=== PATIENT | female | born 2000 | race Caucasian/White ===

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

== ENCOUNTER → 2021-04-07 10:24 | Outpatient (CLI) | payer BC, SELFPAY ==
[2021-04-07 11:30] LABS: HCG,Quantitative 2555 mIU/ml (0-5.42)
== END ==
PROVIDERS: Visit Provider Obstetrics & Gynecology
DX: Z34.90 Encounter for supervision of normal pregnancy, unspecified, unspecified trimester (principal)
CPT/HCPCS: 36415; 84702

== ENCOUNTER → 2021-04-09 08:36 | Outpatient (CLI) | payer BC, SELFPAY ==
[2021-04-09 10:22] LABS: HCG,Quantitative 4569 mIU/ml (0-5.42)
== END ==
PROVIDERS: Visit Provider Obstetrics & Gynecology
DX: Z34.90 Encounter for supervision of normal pregnancy, unspecified, unspecified trimester (principal)
CPT/HCPCS: 36415; 84702

== ENCOUNTER 2021-04-10 09:17 | Emergency (ER) | payer BC, SELFPAY ==
[2021-04-10 09:25] VITALS: BP 132/72; PULSE 108; RESP 12; TEMP 36.9; O2SAT 99; BMI 20.5
--- NOTE | 2021-04-10 09:33 | HMH.EDUTC ---
[facility] [place] Clinical Impression: Viral syndrome Qualifiers: Weeks of gestation: less than 8 weeks Qualified Code(s): Z3A.01 - Less than 8 weeks gestation of Disposition: Home, Self-Care Condition on Discharge: Good Instructions: DI for Viral Syndrome, DI for COVID-19 (Suspected or Confirmed ), Preventing the Spread of Coronavirus Discharge Instructions Additional Instructions: Drink plenty of fluids. Take tylenol or ibuprofen for pain or fever. Take the medications as directed. Follow up with your regular doctor. GO TO THE ER FOR ANY WORSENING SYMPTOMS Quarantine until you know the results of your covid-19 test. If it is positive, the health department should call you and give you further instructions about your length of Quarantine and other thing. Prescriptions: Fluticasone Propionate [Flonase 50mcg nasal spray 16gm] 1 spr NS DAILY 30 Days #1 bottle Transmission Status: Received by [facility] Promethazine HCl [Phenergan 25mg tab] 25 mg PO Q6H PRN #30 tab PRN Reason: Nausea And Vomiting Transmission Status: Received by [facility] Referrals: Provider,Referral, [Primary Care Provider] - Forms: Work/School Release Time of Disposition: 09:54 Medical Decision Making - Medical Records Medical records reviewed: No: I reviewed the patient's medical records. - Jordan Inquiry Pt receiving controlled substance: No Vital Signs: 04/10/21 09:25 04/10/21 09:57 Temperature 98.4 F 98.5 F Temperature Source Oral Pulse Rate 99 H Pulse Rate [Left] 108 H Respiratory Rate 12 16 Blood Pressure 127/83 Blood Pressure [Right Arm] 132/72 Blood Pressure Mean [Right Arm] 92 02 Sat by Pulse Oximetry 99 - Lab Data Lab results reviewed: Yes: I reviewed the patient's lab results. Orders (Tests/Meds): ORDERS Category Date Time Status Covid-19 Nasal PCR ([facility]) Routine Lab 04/10/21 09:32 Received [facility] [place] HPI - General Stated complaint: covid test Time Seen by Provider: 04/10/21 09:33 Mode of Arrival: Ambulatory Source of Information: Patient Limitations: No Limitations Description of Symptoms (Recalled from Triage Doc. by RN): PT C/O NASAL DRAINAGE, qusipe, SORE THROAT AND A COUGH. PT RECENTLY FOUND OUT SHE IS . HEENT Symptoms (Recalled from RN notes): Yes (NASAL DRAINAGE, SORE THROAT AND QUISPE) Resp Symptoms (Recalled from RN notes): Yes (COUGH) Skin Symptoms (Recalled from RN notes): No MS Symptoms (Recalled from RN notes): No Functional Status (Recalled from RN notes): NA - History of Present Illness Provider Complaint: She states that for the past 3 days she has been having a cough, chest congestion, nasal drainage and sore throat. She has had chilling and subjective fever. She recently found out that she is . She is approx 6 weeks . She denies any dysuria, urinary complaints or vaginal bleeding. - Related Data Home Medications Medication Instructions Recorded Confirmed trazodone 50 mg tablet PO 10/27/19 08/02/20 Previous Rx's Medication Instructions Recorded Fluticasone Propionate [Flonase 1 spr NS DAILY 30 Days #1 bottle 04/10/21 50mcg nasal spray 16gm] Promethazine HCl [Phenergan 25mg 25 mg PO Q6H PRN #30 tab 04/10/21 tab] Allergies Allergy/AdvReac Type Severity Reaction Status Date / Time No Known Allergies Allergy Verified 08/02/20 17:21 - Worker's Comp Is this a Worker's Comp case?: No [facility] History - Hepatitis A Screen Drug use history?: No High risk sexual behaviors?: No History of sexually transmitted infection?: No Currently employed?: No Childcare worker?: No Do you have indoor plumbing?: Yes Do you have electricity?: Yes Attestation statement:: This patient has been screened for Hepatitis A risk factors. I have reviewed the patient's past medical history: Yes Medical History: Reports:: Anxiety, Depression Laterality Cases: Bilateral: Tonsillectomy O
[2021-04-10 09:57] VITALS: BP 127/83; PULSE 99; RESP 16; TEMP 36.9
[2021-04-10 10:23] LABS: UTC Strep Screen (Rapid) Negative (Negative)
== END 2021-04-10 10:18 | disposition home or self-care (01) ==
PROVIDERS: Nurse Practitioner Family; Emergency Provider Nurse Practitioner
DX: B34.9 Viral infection, unspecified (principal); Z32.01 Encounter for pregnancy test, result positive; Z20.822 Contact with and (suspected) exposure to COVID-19
CPT/HCPCS: 87880; 99202; G0463; U0003

== ENCOUNTER → 2021-04-28 12:37 | Outpatient (CLI) | payer BC, SELFPAY ==
--- NOTE | 2021-04-28 12:37 | US_ITS ---
PROCEDURE: US OB <= 14 WEEKS FETUS CLINICAL INDICATION: dates COMPARISON: No exams were available for comparison FINDINGS: There is an intrauterine gestational sac present. No pole or yolk sac apparent. Small amount fluid is present in the cul-de-sac. IMPRESSION: There is an intrauterine anechoic sac without pole or yolk sac. Cannot confirm viability. Blighted ovum is considered. Recommend follow-up ultrasound as well as correlation with beta HCG. Dictated by: Antonio Andrade MD 04/28/2021 16:03 Antonio Andrade MD in [place] 04/28/2021 16:03
== END ==
PROVIDERS: Visit Provider Obstetrics & Gynecology
DX: Z34.90 Encounter for supervision of normal pregnancy, unspecified, unspecified trimester (principal)
CPT/HCPCS: 76801

== ENCOUNTER → 2021-04-28 13:55 | Outpatient (CLI) | payer BC, SELFPAY ==
[2021-04-28 16:09] LABS: HCG,Quantitative 17728 mIU/ml (0-5.42)
== END ==
PROVIDERS: Visit Provider Obstetrics & Gynecology
DX: Z34.90 Encounter for supervision of normal pregnancy, unspecified, unspecified trimester (principal)
CPT/HCPCS: 36415; 84702

== ENCOUNTER → 2021-05-02 07:15 | Outpatient (CLI) | payer BC, SELFPAY | PROVIDERS: Visit Provider Obstetrics & Gynecology | DX: Z20.822 Contact with and (suspected) exposure to COVID-19 (principal) ==

== ENCOUNTER → 2021-05-03 09:11 | Outpatient (CLI) | payer BC, SELFPAY ==
[2021-05-03 11:28] LABS: HCG,Quantitative 12364 mIU/ml (0-5.42)
== END ==
PROVIDERS: Visit Provider Obstetrics & Gynecology
DX: Z34.90 Encounter for supervision of normal pregnancy, unspecified, unspecified trimester (principal)
CPT/HCPCS: 36415; 84702

== ENCOUNTER 2021-05-03 09:27 | Emergency (ER) | payer BC, SELFPAY ==
[2021-05-03 09:57] VITALS: BP 129/79; PULSE 70; RESP 18; TEMP 36.9; O2SAT 100; BMI 20.5
--- NOTE | 2021-05-03 10:20 | HMH.EDUTC ---
[facility] [place] Impression: Exposure to COVID-19 virus Qualifiers: Weeks of gestation: less than 8 weeks Qualified Code(s): Z3A.01 - Less than 8 weeks gestation of Disposition: Home, Self-Care Condition on Discharge: Good Instructions: DI for COVID-19 (Suspected or Confirmed ), Preventing the Spread of Coronavirus Discharge Instructions Additional Instructions: Drink plenty of fluids. Take tylenol or ibuprofen for pain or fever. Follow up with your regular doctor. GO TO THE ER FOR ANY CONCERNING SYMPTOMS Quarantine until you know the results of your covid-19 test. If it is positive, the health department should call you and give you further instructions about your length of Quarantine and other things. Notify your school or workplace of your results and follow their instructions regarding return to work/school. Prescriptions: Ondansetron [Zofran 4mg ODT] 4 mg PO DAILYP PRN #12 tab PRN Reason: Nausea Transmission Status: Received by [id number] Referrals: Provider,Referral, [Primary Care Provider] - Time of Disposition: 10:26 Medical Decision Making - Medical Records Medical records reviewed: No: I reviewed the patient's medical records. - Jordan Inquiry Pt receiving controlled substance: No Vital Signs: 05/03/21 09:57 05/03/21 10:22 Temperature 98.5 F 98.5 F Temperature Source Oral Pulse Rate 70 Pulse Rate [Left] 70 Respiratory Rate 18 18 Blood Pressure 129/79 Blood Pressure [Right Arm] 129/79 Blood Pressure Mean [Right Arm] 95 02 Sat by Pulse Oximetry 100 Orders (Tests/Meds): ORDERS Category Date Time Status Covid-19 Nasal PCR ([facility]) Routine Lab 05/03/21 09:[address] [facility] [place] - General Stated complaint: covid test Time Seen by Provider: 05/03/21 10:20 Mode of Arrival: Ambulatory Source of Information: Patient Limitations: No Limitations HEENT Symptoms (Recalled from RN notes): No Resp Symptoms (Recalled from RN notes): No Skin Symptoms (Recalled from RN notes): No MS Symptoms (Recalled from RN notes): No Functional Status (Recalled from RN notes): na - History of Present Illness Provider Complaint: She was exposed to covid-19 from her boyfriend's mother developing symptoms and testing positive 2 days ago. She denies any symptoms, but her work wants her to be tested before she can return. - Related Data Home Medications Medication Instructions Recorded Confirmed trazodone 50 mg tablet PO 10/27/19 08/02/20 Previous Rx's Medication Instructions Recorded Fluticasone Propionate [Flonase 1 spr NS DAILY 30 Days #1 bottle 04/10/21 50mcg nasal spray 16gm] Promethazine HCl [Phenergan 25mg 25 mg PO Q6H PRN #30 tab 04/10/21 tab] Allergies Allergy/AdvReac Type Severity Reaction Status Date / Time No Known Allergies Allergy Verified 08/02/20 17:21 - Worker's Comp Is this a Worker's Comp case?: No [facility] History - Hepatitis A Screen Drug use history?: No High risk sexual behaviors?: No History of sexually transmitted infection?: No Currently employed?: No Childcare worker?: No Do you have indoor plumbing?: Yes Do you have electricity?: Yes Attestation statement:: This patient has been screened for Hepatitis A risk factors. I have reviewed the patient's past medical history: Yes Medical History: Reports:: Anxiety, Depression Laterality Cases: Bilateral: Tonsillectomy Other Surgeries: Yes: No Previous Surgery, Other Amputation: No Fractures: No Comment: EYE SURGERY - Social History Smoking Status: Never smoker Alcohol Intake: never Substance Use Type: marijuana Occupational Status: other Housing: house Household Members: family - Psychiatric History Pschychiatric History:: Reports:: Anxiety, Depression Family Hx:: No significant family history ROS Obtained: Yes All systems reviewed & no additional complaints - Constitutional Constitutional: Reports system revi
[2021-05-03 10:22] VITALS: BP 129/79; PULSE 70; RESP 18; TEMP 36.9
== END 2021-05-03 10:45 | disposition home or self-care (01) ==
PROVIDERS: Emergency Provider Nurse Practitioner Family
DX: Z20.822 Contact with and (suspected) exposure to COVID-19 (principal)
CPT/HCPCS: 99202; G0463; U0003

== ENCOUNTER → 2021-05-12 08:49 | Outpatient (CLI) | payer BC, SELFPAY ==
[2021-05-12 10:08] LABS: HCG,Quantitative 2596 mIU/ml (0-5.42)
== END ==
PROVIDERS: Visit Provider Obstetrics & Gynecology
DX: O02.1 Missed abortion (principal)
CPT/HCPCS: 36415; 84702

== ENCOUNTER → 2021-05-19 07:39 | Outpatient (CLI) | payer BC, SELFPAY ==
[2021-05-19 09:08] LABS: HCG,Quantitative 72 mIU/ml (0-5.42)
== END ==
PROVIDERS: Visit Provider Obstetrics & Gynecology
DX: O02.0 Blighted ovum and nonhydatidiform mole (principal)
CPT/HCPCS: 36415; 84702

== ENCOUNTER → 2022-01-13 08:57 | Outpatient (CLI) | payer BC, SELFPAY ==
[2022-01-13 10:49] LABS: HCG,Quantitative 779 mIU/ml (0-5.42)
== END ==
PROVIDERS: Visit Provider Obstetrics & Gynecology
DX: Z32.01 Encounter for pregnancy test, result positive (principal)
CPT/HCPCS: 36415; 84702

== ENCOUNTER → 2022-01-16 08:49 | Outpatient (CLI) | payer BC, SELFPAY ==
[2022-01-16 10:01] LABS: HCG,Quantitative 1753 mIU/ml (0-5.42)
== END ==
PROVIDERS: Visit Provider Obstetrics & Gynecology
DX: Z34.90 Encounter for supervision of normal pregnancy, unspecified, unspecified trimester (principal)
CPT/HCPCS: 36415; 84702

== ENCOUNTER → 2022-02-06 14:09 | Outpatient (CLI) | payer BC, SELFPAY ==
--- NOTE | 2022-02-06 14:09 | US_ITS ---
FINAL REPORT CLINICAL HISTORY: Dates FINDINGS: Sonographic images of the pelvis were obtained. A gestational sac with a yolk sac is noted in the uterus. The yolk sac measures 0.89 cm. The mean sac diameter measures 1.77 cm which corresponds to 6 week 2 day gestation. No pole is identified. The right ovary is within normal limits. The left ovary is within normal limits. There is no free fluid. IMPRESSION: No pole is identified, differential diagnosis include normal early or failed . Follow-up ultrasound may be helpful. Reviewed, Interpreted and Dictated by Iglesia Mo III, MD Transcribed by Vania Coronel Authenticated and [facility]
[2022-02-06 17:07] LABS: HCG,Quantitative 14112 mIU/ml (0-5.42)
== END ==
LOC: RAD 14:09
PROVIDERS: Visit Provider Obstetrics & Gynecology
DX: Z34.90 Encounter for supervision of normal pregnancy, unspecified, unspecified trimester (principal)
CPT/HCPCS: 36415; 76801; 84702

== ENCOUNTER → 2022-02-09 09:19 | Outpatient (CLI) | payer BC, SELFPAY ==
[2022-02-09 11:34] LABS: HCG,Quantitative 15649 mIU/ml (0-5.42)
== END ==
PROVIDERS: Visit Provider Obstetrics & Gynecology
DX: Z34.90 Encounter for supervision of normal pregnancy, unspecified, unspecified trimester (principal)
CPT/HCPCS: 36415; 84702

== ENCOUNTER → 2022-02-15 10:23 | Outpatient (CLI) | payer BC, SELFPAY ==
--- NOTE | 2022-02-15 10:23 | US_ITS ---
FINAL REPORT CLINICAL HISTORY: follow up, suspected anembryonic COMPARISON: February 06, 2022 FINDINGS: A gestational sac is present within the uterus. Mean sac diameter is 1.2 cm, this has decreased since the prior exam. No pole is identified. The ovaries are normal. No free fluid is identified. IMPRESSION: Findings consistent with a failed . Reviewed, Interpreted and Dictated by Iglesia Mo III, MD Transcribed by Vania Coronel Authenticated and [facility]
== END ==
PROVIDERS: Visit Provider Obstetrics & Gynecology
DX: O02.0 Blighted ovum and nonhydatidiform mole (principal)
CPT/HCPCS: 76801

== ENCOUNTER → 2022-02-15 11:07 | Outpatient (CLI) | payer BC, SELFPAY ==
[2022-02-15 13:02] LABS: HCG,Quantitative 13094 mIU/ml (0-5.42)
== END ==
PROVIDERS: Visit Provider Obstetrics & Gynecology
DX: O02.0 Blighted ovum and nonhydatidiform mole (principal)
CPT/HCPCS: 36415; 84702

== ENCOUNTER → 2022-02-20 09:22 | Outpatient (CLI) | payer BC, SELFPAY ==
[2022-02-20 09:57] LABS: Basophils # 0.1 K/mm3 (0-0.2); Basophils % 1.4 % (0.1-2.0); Eosinophils # 0.1 K/mm3 (0.0-0.4); Eosinophils % 1.2 % (0.1-12.0); Hematocrit 43.3 % (37.0-47.0); Hemoglobin 14.1 g/dL (12.2-16.2); Lymphocytes # 2.2 K/mm3 (0.7-4.5); Lymphocytes % 33.3 % (10-50); Mean Corpuscular HGB Conc 32.6 g/dL (31.8-35.4); Mean Corpuscular Hemoglobin 30.4 pg (27.0-31.2); Mean Corpuscular Volume 93.2 fl (81-99); Mean Platelet Volume 8.2 fl (7.4-10.4); Monocytes # 0.4 K/mm3 (0.1-1.0); Monocytes % 5.7 % (1.7-9.3); Neutrophils # 3.9 K/mm3 (1.8-7.8); Neutrophils % 58.4 % (37.0-80.0); Platelet Count 252 K/mm3 (142-424); Red Blood Count 4.64 M/mm3 (4.20-5.40); Red Cell Distribution Width 12.8 % (11.5-17.5); White Blood Count 6.7 K/mm3 (4.5-13.0)
== END ==
PROVIDERS: Visit Provider Obstetrics & Gynecology
DX: Z01.818 Encounter for other preprocedural examination (principal); Z20.822 Contact with and (suspected) exposure to COVID-19; O02.0 Blighted ovum and nonhydatidiform mole
CPT/HCPCS: 36415; 85025; 86850; C9803; U0003; U0005

== ENCOUNTER 2022-02-21 09:40 | Day surgery (SDC) | payer BC, SELFPAY ==
[2022-02-21] VITALS (9 sets, daily range): BP systolic 103–149; BP diastolic 55–98; PULSE 59–80; RESP 12–18; TEMP 36.1–38; O2SAT 94–100; BMI 21.2
--- NOTE | 2022-02-21 10:49 | HMH.ANESCL ---
[facility] Anesthesia Checklist - Patient Identification Patient Identification: Arm Band - Structural Data Admitted From: Home Planned Operative Procedure/s: D & C Consent for Planned Operative Procedure(s) Verified: Yes - NPO Status Verified Time NPO: 00:00 - Additional verifications Anesthesia Reactions: No Hx Blood Transfusions: No Blood Transfusion Reaction: No - Airway Assessment C-Spine Mobility Assessed: Yes TMJ Mobility Assessed: Yes Dentition: Good Dentition - Neurological Assessment Level of Consciousness: Awake Hx Seizures: No Numbness or tingling in extremities: No - Anesthesia Plan Anesthesia Risk discussed: Yes Anesthesia Plan: Verified ASA Class: I Anesthesia Type: General [facility] History Medical History: Reports:: Anxiety, Depression Denies:: Cancer, Diabetes Mellitus Type 1, Diabetes Mellitus Type 2, Internal Pacemaker, MRSA, Seizures *Have you ever received a pneumonia vaccine?: No *Have you received a flu vaccine this season?: No Other Medical History: Denies: Blood Transfusion Reaction Anesthesia experience/problems:: None Laterality Cases: Bilateral: Tonsillectomy Other Surgeries: Yes: No Previous Surgery, Other. No: Pacemaker Amputation: No Fractures: No - *Social History Last grade of school completed: High school graduate Smoking Status: Current some day smoker Tobacco Type: e-cigarettes # Packs/Day (cigarettes): 2 Alcohol Intake: never Substance Use Type: denies use *Occupational Status:: employed Housing: house Household Members: family *Travel in the last 8 weeks: None - Psychiatric History Pschychiatric History:: Reports:: Anxiety, Depression Family Hx:: Diabetes, Heart Attack, Hypertension, Thyroid Disorder
--- NOTE | 2022-02-21 12:41 | HMH.ANESI ---
[facility] Anesthesia Record Part I Intake, IV Amount: 550 Estimated blood loss (mL): 50 Urine output (mL): 0 Blood Pressure: 103/57 SaO2: 94 Pulse Rate: 60 Respiratory Rate: 12 Temperature: 97.0 F Patient is:: Drowsy Stable to PACU at:: 12:38
--- NOTE | 2022-02-21 13:53 | SUR.PHASEI ---
1305 called and provided detailed report to Tamiko Huerta RN [id number] transported via stretcher to post op. vital signs stable. denies pain. left pt in stable condition with Tamiko Huerta RN at bedside.
--- NOTE | 2022-02-21 17:24 | HMH.OPNOTE ---
Date of procedure: 02/21/22 Pre-op Diagnosis:: Anembryonic Post-op Diagnosis:: Same Procedure performed:: Suction Dilation and Curettage Surgeon:: Cathy Murillo MD E BUSINESS PROJECT MANAGER:: Other Anesthesia: GETA Estimated blood loss (mL): 100 Operative findings:: products of conception grossly identified Operative note:: The patient was taken to the OR and general anesthesia administered without difficulty. She was prepped and draped in lithotomy position. Cr retractors were used to visualize the cervix and a single tooth tenaculum placed on the anterior lip of the cervix. The cervix was passively dilated until it could accomodate the suction curette. A size # 7 curved curette was used to evacuate the contents of the uterus. Once the products of conception had been evacuated, sharp curettage was used to ensure that no products remained within the uterine cavity. All instruments were then removed from the patients vagina, she was taken out of lithotomy position, awakened from anesthesia and taken to the PACU in stable condition. EBL: 100cc Condition: stable Disposition: PACU Specimens:: products of conception Complications:: none
--- NOTE | 2022-02-23 07:48 | P.PN_ITS ---
[facility] Anesthesia Record Part II Discharge Time: 13:18 Destination: Home PACU nurse assessment reviewed?: Yes Patient Condition:: Good Anesthesia Complications:: None Swallowing reflex intact?: Yes Cyanosis?: No Blood Pressure: 118/81 Pulse Rate: 66 Temperature: 97.9 F Mental Status: Alert & Oriented Pain level:: 0 Nausea and/or vomitting:: None Intake, IV Amount: 0
[2022-02-23 07:49] VITALS: BP 118/81; PULSE 66; TEMP 36.6
== END 2022-02-21 13:43 | disposition home or self-care (01) ==
LOC: OR 09:43
PROVIDERS: Visit Provider Obstetrics & Gynecology
PROC: (CPT 59820; principal; 2022-02-21 11:30)
DX: F41.9 Anxiety disorder, unspecified (principal); F32.A Depression, unspecified; Z72.0 Tobacco use; O02.0 Blighted ovum and nonhydatidiform mole
CPT/HCPCS: 59820; 96374; J2405

== ENCOUNTER → 2022-04-11 08:45 | Outpatient (CLI) | payer BC, SELFPAY ==
[2022-04-11 10:07] LABS: Triiodothryronine (T3) Uptake 30 % (23.5-40.5)
[2022-04-11 10:21] LABS: Thyroid Stimulating Hormone 1.76 uIU/mL (0.465-4.68)
[2022-04-12 13:19] LABS: Anti-Centromere B Antibodies <0.2 AI (0.0-0.9); Anti-DNA (DS) Ab Qn <1 IU/mL (0-9); Anti-Jo-1 <0.2 AI (0.0-0.9); Anti-Smith Antibody <0.2 AI (0.0-0.9); Antichromatin Antibodies 0.2 AI (0.0-0.9); Antiscleroderma-70 Antibodies <0.2 AI (0.0-0.9); RNP Antibodies 0.6 AI (0.0-0.9); Sjogren's Anti-SS-A <0.2 AI (0.0-0.9); Sjogren's Anti-SS-B <0.2 AI (0.0-0.9)
[2022-04-12 15:11] LABS: Anti-Cardio Antibody IgM <9 MPL U/mL (0-12); Anti-Cardiolipin Antibody IgG <9 GPL U/mL (0-14); Anticardiolipin Ab,IgA,Qn <9 APL U/mL (0-11)
[2022-04-14 03:44] LABS: Beta-2 Glycoprotein I Ab, IgG <9 (0-20)
[2022-04-18 20:21] LABS: APTT 26.4 sec (.); INR 1.1 ratio (.); Thrombin Time 17.8 sec (.)
[2022-04-21 17:20] LABS: Anti-Cardiolipin Antibody IgG <10 GPL (.); Anti-Cardiolipin Antibody IgM <10 MPL (.); Beta-2 Glycoprotein I Ab, IgA <10 SAU (.); Beta-2 Glycoprotein I Ab, IgG <10 SGU (.); Beta-2 Glycoprotein I Ab, IgM <10 SMU (.); Hexagonal Phase Phospholipid 4 sec (.); Prothrombin Time 11.6 sec (.)
== END ==
PROVIDERS: Visit Provider Obstetrics & Gynecology
DX: N96 Recurrent pregnancy loss (principal)
CPT/HCPCS: 36415; 84436; 84443; 84479; 85597; 85598; 85610; 85613; 85670; 85730; 86146; 86147; 86225; 86235

== ENCOUNTER → 2022-09-05 10:14 | Outpatient (CLI) | payer BC, SELFPAY ==
--- NOTE | 2022-09-05 10:14 | US_ITS ---
FINAL REPORT CLINICAL HISTORY: right lower quadrant pain FINDINGS: Transvaginal sonographic images of the pelvis were obtained. The uterus measures 7.3 x 5.6 x 4.2 cm. The endometrium measures 10 mm, which is within normal limits. No uterine mass is identified. The right ovary measures 4.2 cm in length and left ovary measures 3.5 cm in length. Normal blood flow seen to the ovaries. Multiple small follicles are present in both ovaries. There is no evidence of free fluid. IMPRESSION: No acute abnormality identified. Reviewed, Interpreted and Dictated by Iglesia Mo III, MD Transcribed by Vania Coronel Authenticated and [facility]
== END ==
LOC: RAD 10:14
PROVIDERS: PCP Obstetrics & Gynecology; Visit Provider Obstetrics & Gynecology
DX: R10.31 Right lower quadrant pain (principal)
CPT/HCPCS: 76830

== ENCOUNTER → 2022-12-21 10:39 | Outpatient (CLI) | payer BC, SELFPAY ==
[2022-12-21 11:50] LABS: HCG,Quantitative < 2 mIU/ml (0-5.42)
[2022-12-22 12:25] LABS: Progesterone 0.4 ng/mL (.)
== END ==
PROVIDERS: PCP Family Medicine; Visit Provider Obstetrics & Gynecology
DX: N92.6 Irregular menstruation, unspecified (principal); Z32.00 Encounter for pregnancy test, result unknown
CPT/HCPCS: 36415; 84144; 84702

== ENCOUNTER → 2023-06-04 07:29 | Outpatient (CLI) | payer BC, SELFPAY ==
[2023-06-04 07:52] LABS: Basophils % 0.5 % (0.1-2.0); Eosinophils # 0.1 K/mm3 (0.0-0.4); Eosinophils % 1.4 % (0.1-12.0); Hematocrit 40.5 % (37.0-47.0); Hemoglobin 13.5 g/dL (12.2-16.2); Lymphocytes # 1.9 K/mm3 (0.7-4.5); Lymphocytes % 33.1 % (10-50); Mean Corpuscular HGB Conc 33.3 g/dL (31.8-35.4); Mean Corpuscular Hemoglobin 29.6 pg (27.0-31.2); Mean Corpuscular Volume 88.8 fl (81-99); Monocytes # 0.4 K/mm3 (0.1-1.0); Monocytes % 6.3 % (1.7-9.3); Neutrophils # 3.4 K/mm3 (1.8-7.8); Neutrophils % 58.7 % (37.0-80.0); Platelet Count 234 K/mm3 (142-424); Red Blood Count 4.56 M/mm3 (4.20-5.40); Red Cell Distribution Width 12.9 % (11.5-17.5); White Blood Count 5.9 K/mm3 (4.8-10.8)
[2023-06-04 08:42] LABS: Chloride 107 mmol/L (98-107); Potassium 3.4 mmoL/L (3.5-5.1); Sodium 139 mmol/L (136-145)
[2023-06-04 08:44] LABS: Alanine Aminotransferase 14 U/L (12-78); Aspartate Amino Transferase 20 U/L (14-36); Blood Urea Nitrogen 11 mg/dl (7-17); Estimated Glomerular Filt Rate 106 ml/min (>60); GFR (African American) 128 ML/MIN (>60)
[2023-06-04 08:45] LABS: Albumin Level 4.2 g/dl (3.5-5.0); Albumin/Globulin Ratio 1.8 (1.1-1.8); Alkaline Phosphatase 49 U/L (38-126); Anion Gap 10.4 mEq/L (5-15); Bilirubin,Total 0.4 mg/dl (0.2-1.3); Calcium 8.9 mg/dl (8.4-10.2); Carbon Dioxide 25 mmol/L (22.0-30.0); Globulin 2.3 g/dL (1.3-3.2); Glucose 82 mg/dl (74-100); Glucose,Fasting 82 mg/dl (74-100); Total Protein,Serum 6.5 g/dl (6.3-8.2)
[2023-06-04 09:07] LABS: Hemoglobin A1C 4.5 % (4.0-6.0)
[2023-06-04 09:15] LABS: Thyroid Stimulating Hormone 0.69 uIU/mL (0.465-4.68)
[2023-06-05 11:13] LABS: Estradiol 69.9 pg/mL (.); LH 9.7 mIU/mL (.); Progesterone 0.5 ng/mL (.)
[2023-06-05 14:03] LABS: FSH 7.9 mIU/mL (.)
[2023-06-05 14:11] LABS: Insulin Level Total 6.2 uIU/mL (2.6-24.9)
[2023-06-07 22:06] LABS: Testosterone, Total, LC/MS 40 ng/dL (.)
[2023-06-11 08:36] LABS: Anti Mullerian Hormone (AMH) 13.3
== END ==
PROVIDERS: Visit Provider Obstetrics & Gynecology
DX: O02.0 Blighted ovum and nonhydatidiform mole (principal); R09.89 Other specified symptoms and signs involving the circulatory and respiratory systems
CPT/HCPCS: 36415; 80053; 82397; 82670; 82947; 83001; 83002; 83036; 83525; 84144; 84403; 84443; 85025

== ENCOUNTER 2024-03-17 11:16 | Outpatient (CLI) | payer BC, SELFPAY ==
[2024-03-17 12:43] LABS: HCG,Quantitative 8947 mIU/ml (0-5.42)
[2024-03-18 10:24] LABS: Progesterone 25.5 ng/mL (.)
== END 2024-03-17 23:59 | disposition home or self-care (01) ==
LOC: LAB 11:16
PROVIDERS: Visit Provider Obstetrics & Gynecology
DX: Z34.90 Encounter for supervision of normal pregnancy, unspecified, unspecified trimester (principal)
CPT/HCPCS: 36415; 84144; 84702

== ENCOUNTER 2024-03-17 12:57 | Outpatient (CLI) | payer BC, SELFPAY ==
--- NOTE | 2024-03-17 13:02 | US_ITS ---
PROCEDURE: US OB <= 14 WEEKS FETUS CLINICAL INDICATION: pelvic pain/bleeding, rule out ectopic COMPARISON: US US TRANSVAGINAL from 09/05/2022 FINDINGS: Transvaginal sonographic images of the pelvis were obtained. From her last menstrual period she is 5weeks 4days. There appear to be 3 separate gestational sacs within the uterine cavity. heart tones are not seen and fetuses are not seen within the individual sacs. A developing yolk sac is noted in one of the gestational sacs. The right ovary is seen and has a large cyst measuring 5.4 cm x 4.3 cm x 4.1 cm. There are several other smaller follicles. There is a corpus luteum that measures 2.9 cm x 2.5 cm x 1.8 cm. The left ovary is seen and appears normal. The left ovary has several small follicles as well as a dominant follicle that measures 3.4 cm x 3.1 cm. There is a small amount of fluid in the cul-de-sac. IMPRESSION: 1. There appears to be 3 separate sacs within the uterine cavity. 2. There are no fetuses seen or heart rate activity. A small yolk sac is apparent in 1 sac. 3. The right ovary has a 5.4 cm cyst as well as a corpus luteum. 4. The left ovary appears normal with a 3.4 cm dominant follicle. 5. There is a small amount of fluid in the cul-de-sac. 6. Suggest repeat scan in 1 week. Dictated by: Satinder Soler MD 03/18/2024 10:25 Satinder Soler MD in OV 03/18/2024 10:25
== END 2024-03-17 23:59 | disposition home or self-care (01) ==
LOC: RAD 12:58
PROVIDERS: Visit Provider Family Medicine
DX: O20.9 Hemorrhage in early pregnancy, unspecified (principal); Z3A.00 Weeks of gestation of pregnancy not specified
CPT/HCPCS: 76801

== ENCOUNTER 2024-03-19 17:48 | Emergency (ER) | payer BC, SELFPAY ==
[2024-03-19 18:00] VITALS: BP 120/77; PULSE 79; RESP 20; TEMP 36.8; O2SAT 98; BMI 17.2
--- NOTE | 2024-03-19 18:04 | EXP.UTC ---
Discharge Plan Disposition Patient Disposition: Home, Self-Care Condition: Good Prescriptions Prescriptions: No Action Classic 28 mg iron- 800 mcg tablet PO DAILY progesterone micronized 200 mg capsule 200 mg vaginal HS Qty: 30 2RF Referrals Follow up/Referrals: Provider,Referral, [Primary Care Provider] - See instructions Activity Restrictions/Add. Instructions Additional Instructions/Restrictions: *Monitor Temp, Over the counter Motrin or Tylenol as directed/as needed Tylenol every 4 hours and Motrin every 6 hours (as long as your family doctor has told you that you can take it) for fever or pain. and straight to ER if unable to lower temp less than 101.0 after medication given *Warm salt water gargles may help to soothe the throat *Throat Lozenges? *Warm fluids like tea with honey may help to soothe the throat? *Sleep elevated *Humidifier/Vaporizer Follow up IMMEDIATELY for new or worsening symptoms or no Noticeable improvement over the next 48-72 hours. 911 for difficulty breathing or swallowing You were tested for today for COVID19 your test result should be back in the next 24hours, you may check your results on the [facility] Portal Clinical Impressions Clinical Impression: Viral syndrome Stand Alone Forms Stand Alone Forms: Work/School Release Instructions Patient Instructions: DI for Viral Syndrome, DI for COVID-19 (Suspected or Confirmed ) Print Language Print Language: Tristanian Discharge ED Provider: Lacey Juarez [facility] [place] General Stated complaint: positive test for covid Time Seen by Provider: 03/19/24 18:04 History of Present Illness Provider Complaint: Patient states that she was feeling well for the last couple days States she was recently was on a cruise and she seen on a facebook post that some of the group on the cruise with her tested positive for COVID after getting home so today when she started feeling worse she did a home test and it was positive so today she came in to get checked and get a test here for work States that she is and has been having nasal congestion, body aches, chills, fatigue and over all not feeling well Related Data Home Medications ?Medication ?Instructions ?Recorded ?Confirmed vits no.126-ferrous fum tab PO DAILY 05/08/23 03/17/24 28 mg iron-folic acid 800 mcg tablet (Classic ) Previous Rx's ?Medication ?Instructions ?Recorded progesterone micronized 200 mg 200 mg vaginal HS #30 caps 03/17/24 capsule Allergies Allergy/AdvReac Type Severity Reaction Status Date / Time No Known Allergies Allergy Verified 03/17/24 14:01 [facility] Disclaimer: The information contained in this section may have been updated after the patient was seen, as this information can be updated by other users. Medical History (Updated 03/19/24 @ 18:13 by Lacey Juarez APRN) Vaginal bleeding affecting early Anxiety with depression Surgical History History of dilation and curettage Family History Other Coronary artery disease Diabetes FHx: mental illness Heart attack Thyroid disorder Social History Smoking Status: Current some day smoker tobacco type: e-cigarettes second hand exposure: No alcohol intake: never substance use type: denies use current occupational status: employed Travel in the last 8 weeks: None household members: family housing: house current occupation: [employer] caffeine: Yes ROS Obtained: Yes All systems reviewed & no additional complaints except as documented and Yes Systems reviewed as appropriate & no additional complaints except as documented Constitutional Constitutional: Reports system reviewed and no additional complaints, except as documented, Reports as per HPI, Reports body ache, Reports chills and Reports fatigue ENT Ears, Nose, Mouth, and Throat: Reports system reviewed and no additional complaints, except as documented, Reports as per HPI, Reports nasal congestion and Reports nasal discharge Cardiovascular Cardiovascular: Reports system reviewed and no additional complaints, except as documented and Reports as per HPI Respiratory Respiratory: Reports system reviewed and no additional complaints, except as documented and Reports as per HPI Gastrointestinal Gastrointestingal: Reports system reviewed and no additional complaints, except as documented and as per HPI Endocrine Endocrine: Reports fatigue Physical Exam General General appearance: alert and in no apparent distress ENT ENT exam: Present mucous membranes moist Expanded ENT Exam Nose exam: Present other (clear drainage from nose) Respiratory Respiratory exam: Present normal lung sounds bilaterally; Absent respiratory distress or wheezes Cardiovascular Cardiovascular exam: Present regular rate, normal rhythm and normal heart sounds Neurological Exam Neurological exam: Present alert, oriented X3 and normal gait Medical Decision Making Jordan Inquiry Pt receiving controlled substance: No Jordan was queried for this patient: No
[2024-03-19 18:24] VITALS: BP 120/77; PULSE 79; RESP 20; TEMP 36.8; O2SAT 98
== END 2024-03-19 18:28 | disposition home or self-care (01) ==
PROVIDERS: Emergency Provider Nurse Practitioner
DX: O98.519 Other viral diseases complicating pregnancy, unspecified trimester (principal); U07.1 COVID-19; Z3A.00 Weeks of gestation of pregnancy not specified
CPT/HCPCS: 87635; 99212; 99213; G0463

== ENCOUNTER 2024-03-24 09:35 | Outpatient (CLI) | payer BC, SELFPAY ==
--- NOTE | 2024-03-24 09:37 | US_ITS ---
PROCEDURE: US OB <= 14 WEEKS FETUS CLINICAL INDICATION: dating /confirmation in early , multiple COMPARISON: US US OB <= 14 WEEKS FETUS from 03/17/2024 FINDINGS: Transvaginal sonographic images of the pelvis were obtained. From her last menstrual period she is 6weeks 4days. There are 3 separate viable intrauterine gestations. Fetus A: CRL 3.51 mm, heart rate 102 BPM, 6 weeks 1 day, yolk sac 4.66 mm Fetus B: CRL 2.62 mm, heart rate 94 BPM, 5 weeks 6 days, yolk sac 3.3 mm Fetus C 03.36 mm, heart rate 96 BPM, 6 weeks 0 days, yolk sac 4.2 mm The right ovary is seen and appears normal. There continues to be a cyst in the right ovary measuring 4.6 cm x 3.5 cm x 4.3 cm. There is a 2nd smaller follicle measuring 2.9 cm x 2.7 cm x 2.3 cm. Corpus luteum measuring 2.8 cm x 1.7 cm is also seen. The left ovary is seen and appears normal. A follicle is seen in the left ovary measuring 3.12 cm x 2.01 cm. There is trace fluid in the cul-de-sac. IMPRESSION: 1. Viable triplet gestation. There are 3 separate sacs and heart tones are present in each. 2. The fetuses average 6 weeks 0 days. ZAHIDA will be 11/17/2024. 3. There continues to be a cyst measuring 4.6 cm in the right ovary. There is another smaller cyst. There is a follicle on the left ovary measuring 3.1 cm. 4. There is trace fluid in the cul-de-sac. Dictated by: Satinder Soler MD 03/24/2024 11:10 Satinder Soler MD in OV 03/24/2024 11:10
== END 2024-03-24 23:59 | disposition home or self-care (01) ==
LOC: RAD 09:37
PROVIDERS: PCP Obstetrics & Gynecology; Visit Provider Obstetrics & Gynecology
DX: O30.1 Triplet pregnancy (principal); Z3A.01 Less than 8 weeks gestation of pregnancy
CPT/HCPCS: 76801; 76802

== ENCOUNTER 2024-03-28 16:05 | Outpatient (CLI) | payer BC, SELFPAY | END 2024-03-28 23:59 | disposition home or self-care (01) | LOC: LAB.DROPOF 16:05 | PROVIDERS: PCP Obstetrics & Gynecology; Visit Provider Obstetrics & Gynecology | DX: Z34.90 Encounter for supervision of normal pregnancy, unspecified, unspecified trimester (principal) | CPT/HCPCS: 87086 ==

== ENCOUNTER 2024-04-06 02:17 | Emergency (ER) | payer BC, SELFPAY ==
[2024-04-06 02:18] VITALS: BP 127/90; PULSE 110; RESP 20; TEMP 36.7; O2SAT 100; BMI 17.2
--- NOTE | 2024-04-06 02:32 | ED_ITS ---
Discharge Plan Disposition Patient Disposition: Home, Self-Care Condition: Good Prescriptions Prescriptions: No Action Classic 28 mg iron- 800 mcg tablet PO DAILY promethazine 25 mg tablet 25 mg PO Q6H PRN (Reason: nausea and vomiting) Qty: 30 1RF Referrals Follow up/Referrals: Zach Wang MD [Primary Care Provider] - See instructions Activity Restrictions/Add. Instructions Additional Instructions/Restrictions: You were evaluated in the ER. You are appropriate for discharge at this time. Call the OB on Sunday morning and be scheduled for close follow-up to recheck hCG. They will also follow-up your urine culture. Return to the ER with new, worsening, or otherwise concerning symptoms, including but not limited to worsening vaginal bleeding, soaking through 1 pad per hour or more, or lightheadedness, shortness of breath associated with continued bleeding. Clinical Impressions Clinical Impression: Vaginal bleeding affecting early , Triplet gestation in first trimester Print Language Print Language: Sri Lankan Discharge ED Provider: Veronica Washington Adult HPI General Chief complaint: Vaginal Bleeding Stated complaint: 8 weeks bleeding Time Seen by Provider: 04/06/24 02:30 Mode of Arrival: Ambulatory Source of Information: Patient Limitations: No Limitations Description of Symptoms (Recalled from ER Triage Doc. by RN): Pt ambulatory to ED c/o vaginal bleeding @ 8 weeks . Pt reports she is with triplets, confirmed by TV US last sunday. pt denies abd cramping, N/V/D. Pt has had 2 miscarriges in the past. History of Present Illness HPI narrative: 23-year-old female, , presents to the ER with concerns of vaginal bleeding that started approximately 10 minutes prior to arrival. Patient reports she is 8 weeks with triplets. Patient has had a confirmatory ultrasound. Patient denies any abdominal pain, nausea, vomiting, or diarrhea. She denies any dysuria or hematuria. Patient states she has soaked her underwear but has not passed clots or tissue. Patient reports her previous lost pregnancies were blighted ovum. She reports she and her partner took Clomid for this . She is following with Dr. Michaels. Related Data Home Medications ?Medication ?Instructions ?Recorded ?Confirmed vits no.126-ferrous fum tab PO DAILY 05/08/23 03/28/24 28 mg iron-folic acid 800 mcg tablet (Classic ) Previous Rx's ?Medication ?Instructions ?Recorded promethazine 25 mg tablet 25 mg PO Q6H PRN nausea and 03/28/24 vomiting #30 tabs Allergies Allergy/AdvReac Type Severity Reaction Status Date / Time No Known Allergies Allergy Verified 03/28/24 09:46 [facility] Disclaimer: The information contained in this section may have been updated after the patient was seen, as this information can be updated by other users. Medical History (Updated 04/06/24 @ 03:58 by Veronica Washington MD) Nausea and vomiting Triplet gestation Vaginal bleeding affecting early Anxiety with depression Surgical History History of dilation and curettage Family History Other Coronary artery disease Diabetes FHx: mental illness Heart attack Thyroid disorder Social History Smoking Status: Never smoker second hand exposure: No alcohol intake: never substance use type: denies use current occupational status: employed Travel in the last 8 weeks: None household members: family housing: house current occupation: [employer] caffeine: Yes ROS Obtained: Yes All systems reviewed & no additional complaints except as documented Genitourinary Female Genitourinary: Denies pelvic pain and Reports other (Vaginal bleeding) Physical Exam General General appearance: alert, in no apparent distress and anxious Comment: Nontoxic, not in extremis Head Head exam: atraumatic and normocephalic Eye Eye exam: Present PERRL and EOMI ENT ENT exam: Present mucous membranes moist Neck Neck exam: Present normal inspection and full ROM Chest Chest inspection: Present symmetric chest wall rise Respiratory Respiratory exam: Present normal lung sounds bilaterally; Absent respiratory distress, wheezes or stridor Cardiovascular Cardiovascular exam: Present regular rate and normal rhythm Abdominal Exam Abdominal exam: Present soft; Absent distention or tenderness Extremities Exam Extremities exam: Present full ROM Back Exam Back exam: Absent CVA tenderness (R) or CVA tenderness (L) Neurological Exam Neurological exam: Present alert and oriented X3; Absent motor sensory deficit Psychiatric Psychiatric exam: Present normal affect and normal mood Skin Skin exam: Present warm and dry Medical Decision Making Medical Records Medical records reviewed: Yes I reviewed the patient's medical records. MR Comment: Most recent OB note was reviewed. Patient was prescribed promethazine for nausea and vomiting. Sonography at that time demonstrated 3 intrauterine gestational sacs with live . Patient was supposed to follow-up in 2 weeks for repeat ultrasound. My review of ultrasound from 03/24 demonstrates 3 separate viable intrauterine gestations each with heart rates near 100, estimated gestational age 6 weeks at that time. Trace fluid in the cul-de-sac. Follicle on the left ovary, cyst on the right ovary which has previously been appreciated. No findings of ectopic or heterotopic . Jordan Inquiry Pt receiving controlled substance: No Vital Signs: 04/06/24 02:18 04/06/24 03:59 Temperature 98.0 F 97.8 F Temperature Source Oral Oral Pulse Rate 84 Pulse Rate [Left Radial] 110 H Respiratory Rate 20 14 Blood Pressure 116/67 Blood Pressure [Right Arm] 127/90 Blood Pressure Mean [Right Arm] 102 Blood Pressure Source Automatic Cuff Blood Pressure Source [Right Arm] Automatic Cuff Blood Pressure Position Sitting Blood Pressure Position [Right Arm] Sitting 02 Sat by Pulse Oximetry 100 Oxygen Delivery Method Room Air Room Air Lab Data Lab Results 04/06/24 02:36: Urine Color Yellow, Urine Appearance Slightly cloudy, Urine pH 6.5, Ur Specific [place] 1.025, Urine Protein Negative, Urine Glucose (UA) Negative, Urine Ketones Negative, Urine Blood 2+, Urine Nitrate Negative, Urine Bilirubin Negative, Urine Urobilinogen 0.2, Ur Leukocyte Esterase Negative, Urine RBC 5-10, Urine WBC None, Ur Squamous Epith Cells Occasional, Urine Bacteria Trace 04/06/24 02:52: WBC 9.9, RBC 4.27, Hgb 12.8, Hct 40.3, MCV 94.3, MCH 30.0, MCHC 31.9, RDW 13.5, Plt Count 232, MPV 8.9, Neut % (Auto) 76.6, Lymph % (Auto) 15.6, Rice % (Auto) 6.6, Eos % (Auto) 0.8, Baso % (Auto) 0.4, Neut # (Auto) 7.6, Lymph # (Auto) 1.5, Rice # (Auto) 0.7, Eos # (Auto) 0.1, Baso # (Auto) 0.0, Sodium 136, Potassium 3.3 L, Chloride 105, Carbon Dioxide 24, Anion Gap 10.3, BUN 8, C reatinine 0.50 L, Estimated Creat Clear 139, Estimated GFR 154, Est GFR ( Amer) 187, Glucose 79, Calcium 9.2, Total Bilirubin 0.4, AST 21, ALT 21, Alkaline Phosphatase 46, Total Protein 6.7, Albumin 4.1, Globulin 2.6, Albumin/Globulin Ratio 1.6, HCG, Quant [id number] H, Blood Type AB Positive, Antibody Screen Negative 04/06/24 02:52 04/06/24 02:52 Orders (Tests/Meds): ED MEDICATIONS Discontinued Medications Generic Name Dose Route Start Last Admin Trade Name Freq PRN Reason Stop Dose Admin Potassium Chloride 20 meq 04/06/24 04:01 Potassium Chloride 20meq Tab PO 04/06/24 04:02 ONCE ONE ORDERS Category Date Time Status Type and Screen Stat BBK 04/06/24 02:52 Completed POCUS Point of Care (ER Only) Stat Exams 04/06/24 02:32 Completed CBC w/Auto Diff [Complete Blood Count Auto Diff] Stat Lab 04/06/24 02:52 Completed CMP [Comprehensive Metabolic Panel] Stat Lab 04/06/24 02:52 Completed HCG,Quantitative Stat Lab 04/06/24 02:52 Completed Urinalysis and Microscopic Stat Lab 04/06/24 02:36 Completed Urine Culture Stat Micro 04/06/24 02:36 Received Medical Decision Narrative: In summary, this 23-year-old female presents to the emergency department today with vaginal bleeding in early . On initial evaluation patient is hemodynamically stable, the tachycardia that was present on arrival has resolved on my exam, patient is anxious and tremulous, tearful. Abdomen is soft, nontender, nondistended, nonacute. She is overall well-appearing with reassuring exam. Differential diagnosis includes but is not limited to vaginal bleeding in early , anemia, I considered ectopic or heterotopic however my review of previous records demonstrates these are not present, she also was not having abdominal pain which is reassuring, considered miscarriage, UTI, bacteriuria. Based on these concerns, I ordered serum labs, urine studies. I performed [id number] ultrasound at bedside. See procedure note for details. Urine negative for findings of infection, trace bacteria and few RBCs present. I discussed this with Dr. Madrid with [employer], she stated it is unnecessary to treat this at this time and to order urine culture. Remainder of labs were reviewed and do not demonstrate any findings of anemia, no leukocytosis, CMP with trace hypokalemia, patient is receiving oral repletion. Quantitative hCG over 188,000. Blood type AB+, antibody negative, patient does not require RhoGAM. On reassessment patient continues to be stable. Heart rate has improved as her anxiety has settled. She is hemodynamically stable. At this time patient is appropriate for discharge. Patient was given instructions on symptomatic management, follow up instructions including to call first thing Sunday to schedule 48-hour HCG recheck, and return precautions for the emergency department. Patient indicated understanding and was discharged in stable condition. Procedures Miscellaneous Procedure Procedure Performed: Limited OB ultrasound Indication: Vaginal bleeding, known triplet without ectopic or heterotopic Identified structures: Uterus, pouch of Eliazar, bilateral adenexa Findings: Uterus: Definitive live triplet IUP Fetus 1 FHR: 169 Fetus 2 FHR: 162 Fetus 3 FHR: 160 Small free fluid in the cul-de-sac, no obvious abnormalities of the adenexa though these were not extensively examined given absence of pain and recent reassuring ultrasound. Impression: Live intrauterine pregnancies with heart rates as documented above -Ectopic : Absent -Free fluid: Absent Images were saved to permanent archive The study was technically adequate CPT Transabdominal: 98833-37 This study was performed by me, and I personally interpreted all images/videos. Based on my clinical judgement, these images were adequate and did not necessitate further imaging. Critical Care Critical Care Time Critical Care Time: No
[2024-04-06 02:40] LABS: Microscopic, Urine URINE MICROSCOPIC (MICROSCOPIC)
[2024-04-06 02:41] LABS: Bilirubin,Urine Negative (Negative); Blood, Urine 2+ (Negative); Color,Urine YELLOW (Yellow); Glucose,Urine (UA) Negative (Negative); Ketones,Urine Negative (Negative); Leukocyte Esterase,Urine Negative (Negative); Nitrate,Urine Negative (Negative); PH,Urine 6.5 (5.0-8.5); Protein,Urine Negative (Negative); Specific Gravity, Urine 1.025 (1.005-1.030); Urobilinogen,Urine 0.2 EU/dl (0.2)
[2024-04-06 02:43] LABS: Appearance,Urine Slightly Cloudy (Clear)
[2024-04-06 02:51] LABS: Bacteria,Urine Trace /lpf; Squamous Epithelial Cell,Urine Occasional #/hpf (0-5)
[2024-04-06 03:17] LABS: Basophils % 0.4 % (0.1-2.0); Eosinophils # 0.1 K/mm3 (0.0-0.4); Eosinophils % 0.8 % (0.1-12.0); Hematocrit 40.3 % (37.0-47.0); Hemoglobin 12.8 g/dL (12.2-16.2); Lymphocytes # 1.5 K/mm3 (0.7-4.5); Lymphocytes % 15.6 % (10-50); Mean Corpuscular HGB Conc 31.9 g/dL (31.8-35.4); Mean Corpuscular Volume 94.3 fl (81-99); Mean Platelet Volume 8.9 fl (7.4-10.4); Monocytes # 0.7 K/mm3 (0.1-1.0); Monocytes % 6.6 % (1.7-9.3); Neutrophils # 7.6 K/mm3 (1.8-7.8); Neutrophils % 76.6 % (37.0-80.0); Platelet Count 232 K/mm3 (142-424); Red Blood Count 4.27 M/mm3 (4.20-5.40); Red Cell Distribution Width 13.5 % (11.5-17.5); White Blood Count 9.9 K/mm3 (4.8-10.8)
[2024-04-06 03:19] LABS: Alanine Aminotransferase 21 U/L (12-78); Albumin Level 4.1 g/dl (3.5-5.0); Albumin/Globulin Ratio 1.6 (1.1-1.8); Alkaline Phosphatase 46 U/L (38-126); Anion Gap 10.3 mEq/L (5-15); Aspartate Amino Transferase 21 U/L (14-36); Bilirubin,Total 0.4 mg/dl (0.2-1.3); Blood Urea Nitrogen 8 mg/dl (7-17); Calcium 9.2 mg/dl (8.4-10.2); Carbon Dioxide 24 mmol/L (22.0-30.0); Chloride 105 mmol/L (98-107); Creatinine Clearance Estimated 139 mL/min (50-200); Estimated Glomerular Filt Rate 154 ml/min (>60); GFR (African American) 187 ML/MIN (>60); Globulin 2.6 g/dL (1.3-3.2); Glucose 79 mg/dl (74-100); Potassium 3.3 mmoL/L (3.5-5.1); Sodium 136 mmol/L (136-145); Total Protein,Serum 6.7 g/dl (6.3-8.2)
--- NOTE | 2024-04-06 03:25 | PC.NURSE ---
PAGED DR PERALTA AT THIS TIME
[2024-04-06 03:59] VITALS: BP 116/67; PULSE 84; RESP 14; TEMP 36.6; O2SAT 99
[2024-04-06 04:02] LABS: HCG,Quantitative 188780 mIU/ml (0-5.42)
== END 2024-04-06 04:09 | disposition home or self-care (01) ==
PROVIDERS: Emergency Provider Emergency Medicine; PCP Family Medicine
DX: O20.9 Hemorrhage in early pregnancy, unspecified (principal); Z3A.08 8 weeks gestation of pregnancy; Z87.59 Personal history of other complications of pregnancy, childbirth and the puerperium; E87.6 Hypokalemia
CPT/HCPCS: 80053; 81001; 84702; 85025; 86850; 87086; 99284

== ENCOUNTER 2024-04-16 01:57 | Observation (INO) | payer BC, SELFPAY ==
[2024-04-16] VITALS (7 sets, daily range): BP systolic 105–132; BP diastolic 63–85; PULSE 64–91; RESP 16–18; TEMP 36.6–37.1; O2SAT 96–100; BMI 17.2
--- NOTE | 2024-04-16 02:30 | PC.NURSE ---
Assisted provider with bedside US, Pt tolerated well
--- NOTE | 2024-04-16 02:34 | PC.NURSE ---
Tylenol 500mg PO, Oxycodone 5mg PO and Zofran 4mg ODT given
--- NOTE | 2024-04-16 02:34 | PC.NURSE ---
Pt noted to have saturated pad and pants with blood, pt provided with clean gown and pad
[2024-04-16] MEDS: OXYCODONE 5MG IMMEDIATE RELEASE TABLET 5 MG PO (02:35)
[2024-04-16] MEDS: ACETAMINOPHEN 500MG TAB 500 MG PO (02:35)
--- NOTE | 2024-04-16 03:03 | PC.NURSE ---
Assisted provider with pelvic exam, pt noted to have bright red vaginal bleeding, moderate amount noted, pt tolerated well
--- NOTE | 2024-04-16 03:05 | PC.NURSE ---
POC explained to pt, IV access obtained
--- NOTE | 2024-04-16 03:50 | PC.NURSE ---
Pt up to bathroom, pt noted to continue to have moderate amount of vaginal bleeding, pad 75% saturated and large amount of blood noted in toilet, provider aware, VSS
--- NOTE | 2024-04-16 04:00 | PC.NURSE ---
Pt updated on POC, agreeable to be admitted
[2024-04-16 04:53] LABS: Alanine Aminotransferase 33 U/L (12-78); Albumin Level 3.9 g/dl (3.5-5.0); Albumin/Globulin Ratio 1.4 (1.1-1.8); Alkaline Phosphatase 47 U/L (38-126); Aspartate Amino Transferase 34 U/L (14-36); Bilirubin,Total 0.5 mg/dl (0.2-1.3); Blood Urea Nitrogen 6 mg/dl (7-17); Calcium 9.2 mg/dl (8.4-10.2); Carbon Dioxide 21 mmol/L (22.0-30.0); Chloride 104 mmol/L (98-107); Estimated Glomerular Filt Rate 154 ml/min (>60); GFR (African American) 187 ML/MIN (>60); Globulin 2.7 g/dL (1.3-3.2); Glucose 95 mg/dl (74-100); Sodium 131 mmol/L (136-145); Total Protein,Serum 6.6 g/dl (6.3-8.2)
[2024-04-16 04:57] LABS: HCG,Quantitative 176610 mIU/ml (0-5.42)
--- NOTE | 2024-04-16 05:32 | HMH.EDGENADL ---
Discharge Plan Disposition Patient Disposition: Admitted Chief Complaint: Vaginal Bleeding Clinical Impressions Clinical Impression: Vaginal bleeding in patient at less than 20 weeks gestation, Abdominal pain affecting Discharge ED Provider: Price Cristobal General Adult HPI General Chief complaint: Vaginal Bleeding Stated complaint: abd pain, vaginal bleeding Time Seen by Provider: 04/16/24 02:10 Mode of Arrival: Ambulatory Source of Information: Patient and Significant Other Limitations: No Limitations Description of Symptoms (Recalled from ER Triage Doc. by RN): Pt woke up approx 1.5 hrs ago feeling as if she had to urinate, vaginal bleeding, pt is 10 wks with triplets. Also states she have pain in lower abdomen 06/05 History of Present Illness HPI narrative: 23-year-old female with history of prior miscarriages, reportedly 10 weeks with triplets after conceiving after taking Clomid, presents with pelvic pain and vaginal bleeding.? She reports that she had similar but less severe symptoms last week and was seen here was noted to have triplets with heartbeats.? She was seen by the PATTERN WHEEL MAKER's the next day in clinic and was told that everything looked good at that point as well.? She did have some vaginal spotting but it stopped. ?Tonight she had relatively sudden onset of pelvic pain and reports a large volume of vaginal bleeding. Related Data Home Medications ?Medication ?Instructions ?Recorded ?Confirmed vits no.126-ferrous fum 1 tab PO DAILY 05/08/23 04/16/24 28 mg iron-folic acid 800 mcg tablet (Classic ) Previous Rx's ?Medication ?Instructions ?Recorded promethazine 25 mg tablet 25 mg PO Q6H PRN nausea and 03/28/24 vomiting #30 tabs nitrofurantoin 100 mg PO BID 7 days #14 caps 04/11/24 monohydrate/macrocrystals 100 mg capsule (Macrobid) Allergies Allergy/AdvReac Type Severity Reaction Status Date / Time No Known Allergies Allergy Verified 04/16/24 05:32 [facility] Disclaimer: The information contained in this section may have been updated after the patient was seen, as this information can be updated by other users. 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[employer] caffeine: Yes ROS Obtained: Yes All systems reviewed & no additional complaints except as documented Physical Exam General General appearance: anxious and in distress Head Head exam: atraumatic and normocephalic Eye Eye exam: Present normal appearance, PERRL and EOMI ENT ENT exam: Present normal oropharynx and normal external ear exam Neck Neck exam: Present normal inspection and full ROM Chest Chest inspection: Present normal inspection and symmetric chest wall rise; Absent tenderness Respiratory Respiratory exam: Present normal lung sounds bilaterally; Absent respiratory distress Cardiovascular Cardiovascular exam: Present regular rate and normal rhythm Abdominal Exam Abdominal exam: Present soft and tenderness (suprapubic); Absent distention or guarding Speculum exam: Present other (On speculum exam, unable to visualize cervix secondary to rapidly pulling blood in the vaginal vault) Extremities Exam Extremities exam: Present normal inspection; Absent edema or joint swelling Back Exam Back exam: Present normal inspection; Absent tenderness Neurological Exam Neurological exam: Present alert and oriented X3; Absent motor sensory deficit Psychiatric Psychiatric exam: Present normal affect and normal mood Skin Skin exam: Present warm, dry and normal color Lymphatic Lymphatic Findings: no adenopathy Medical Decision Making Medical Records Medical records reviewed: Yes I reviewed the patient's medical records. Jordan Inquiry Pt receiving controlled substance: No Jordan was queried for this patient: No Vital Signs: 04/16/24 02:05 04/16/24 04:30 04/16/24 04:30 Temperature 98.8 F 98.2 F Temperature Source Oral Oral Pulse Rate [Right Brachial] 71 68 Respiratory Rate 16 16 Blood Pressure [Right Arm] 132/85 114/63 Blood Pressure Mean [Right Arm] 100 80 Blood Pressure Source [Right Arm] Automatic Cuff Automatic Cuff Blood Pressure Position [Right Arm] Sitting 02 Sat by Pulse Oximetry 100 100 Oxygen Delivery Method Room Air Room Air Room Air Lab Data Lab results reviewed: Yes I reviewed the patient's lab results. Lab Results 04/16/24 03:15: Sodium 131 L, Potassium 4.0, Chloride 104, Carbon Dioxide 21 L, Anion Gap 10.0, BUN 6 L, Creatinine 0.50 L, Estimated GFR 154, Est GFR ( Amer) 187, Glucose 95, Calcium 9.2, Total Bilirubin 0.5, AST 34, ALT 33, Alkaline Phosphatase 47, Total Protein 6.6, Albumin 3.9, Globulin 2.7, Albumin/Globulin Ratio 1.4, HCG, Quant [id number] H, Blood Type AB Positive, Antibody Screen Negative 04/16/24 03:15 Orders (Tests/Meds): ED MEDICATIONS Generic Name Dose Route Start Last Admin Trade Name Freq PRN Reason Stop Dose Admin Acetaminophen 1,000 mg 04/16/24 05:10 Acetaminophen 500mg Tab PO 05/16/24 05:09 Q6HP PRN Mild Pain (1-3) Ondansetron HCl 4 mg 04/16/24 05:11 Ondansetron 4mg/2ml Vial IV 05/16/24 05:10 Q6HP PRN Nausea Medical Decision Narrative: 23-year-old female, 10 weeks with triplets, presents for the second time in 1 week with lower abdominal pain and vaginal bleeding, this time much more severe than last time.? Differential diagnosis includes but limited to complete loss, incomplete loss, subchorionic hemorrhage.? Patient was given Tylenol and morphine and Zofran for symptom control. ?Bedside transabdominal ultrasound was performed, images were unable to be saved.? The uterus appeared full of the heterogeneous material.? There did appear to be some possible cardiac activity, but seemed unusually slow.? I was not able to clearly differentiate 3 separate fetuses. ?A speculum exam was attempted, I was unable to visualize the cervix because patient was having pooling blood obstructing the view in the vaginal vault.? Basic labs were obtained and show hemoglobin 12.8. Type and screen ordered. We observed the patient for some time, but her bleeding did not significantly improve.? She bled through multiple pads and on the toilet multiple times. ?Given the volume and persistence, I am concerned that she could require surgical intervention and would benefit from obs admission.? We discussed the case with the PATTERN WHEEL MAKER on-call who accepted the patient for continued observation. Procedures Risk/Benefits of Procedure(s) Were Explained: Yes Critical Care Critical Care Time Critical Care Time: No
[2024-04-16 05:38] LABS: Hematocrit 39.3 % (37.0-47.0); Hemoglobin 12.8 g/dL (12.2-16.2); Mean Corpuscular HGB Conc 32.6 g/dL (31.8-35.4); Mean Corpuscular Hemoglobin 30.5 pg (27.0-31.2); Mean Corpuscular Volume 93.5 fl (81-99); Platelet Count 260 K/mm3 (142-424); Red Blood Count 4.21 M/mm3 (4.20-5.40); Red Cell Distribution Width 13.6 % (11.5-17.5); White Blood Count 14.8 K/mm3 (4.8-10.8)
[2024-04-16 05:39] LABS: Basophils % 0.2 % (0.1-2.0); Eosinophils % 0.1 % (0.1-12.0); Lymphocytes % 6.4 % (10-50); Mean Platelet Volume 8.4 fl (7.4-10.4); Monocytes # 0.7 K/mm3 (0.1-1.0); Monocytes % 4.7 % (1.7-9.3); Neutrophils % 87.7 % (37.0-80.0)
--- NOTE | 2024-04-16 07:45 | PC.NURSE ---
Pt called out while in the bathroom. Pt was up to void and passed a large clot in the toilet. Clot removed from the toilet to be weighed for QBL. Blood clot approximately the size of a baseball. Pt denies any dizziness or lightheadedness.
--- NOTE | 2024-04-16 08:18 | HMH.PHAINT1 ---
Pharmacy Intervention Comments: MEDICATION RECONCILIATION COMPLETED ON PATIENT USING EXTERNAL FILL HISTORY FROM PHARMACY. -JACQUI GRAVES, MOSHED
--- NOTE | 2024-04-16 08:45 | US_ITS ---
PROCEDURE: US OB <= 14 WK FETUS ADD GEST CLINICAL INDICATION: BLEEDING IN EARLY , triplets COMPARISON: US US OB <= 14 WEEKS FETUS from 03/17/2024 US US OB <= 14 WEEKS FETUS from 03/24/2024 FINDINGS: Transvaginal sonographic images of the pelvis were obtained. From her last menstrual period she is 9weeks 4days. The 3 previously described gestational sacs are no longer present within the uterine cavity. There is heterogenous tissue within the uterus measuring 4.5 cm x 2.1 cm x 4.0 cm. Individual gestational sacs are not present. heart tones are not present. There appears to be tissue within the cervix as well. The right ovary is seen and appears normal. The right ovary appears enlarged. There are least 3 follicles in the right ovary. Follicle 1. 4.8 cm x 3.1 cm Follicle 2. 2.3 cm x 1.4 cm. This has a ground-glass appearance consistent with a corpus luteum or small hemorrhagic cyst. Follicle 3. 3.0 cm x 1.9 cm x 2.4 cm The left ovary is seen and appears normal. There are multiple small peripheral follicles giving the ovary a polycystic appearance. There is a single dominant follicle measuring 1.7 cm. There is a small amount of fluid in the cul-de-sac. IMPRESSION: 1. Missed with no heart tones present. 2. The 3 gestational sacs are no longer present and there is heterogenous tissue within the uterine cavity. Retained products. 3. The right ovary has 3 follicles. The largest measures 4.8 cm. 4. There is a small amount of fluid in the cul-de-sac Dictated by: Satinder Soler MD 04/16/2024 11:51 Satinder Soler MD in OV 04/16/2024 11:51
--- NOTE | 2024-04-16 09:06 | P.HP_ITS ---
OB - H&P: HPI Antepartum History of Present Illness Chief complaint: Vaginal bleeding in early History of present illness: Ms Herlinda Jason is a 23 yo at 9w2d admitted to [facility] L&D from ED for vaginal bleeding in early triplet . She states she went to bed last n ight around 2200. She woke up around 3715-0338 this morning to go to the bathroom. She thought she needed to have a BM. However, she ended passed a large clot and had lower abdominal pain/pelvic cramping. She went to the ED for evaluation. Point of care bedside ultrasound by ED physician noted: uterus appeared full of the heterogeneous material.? There did appear to be some possible cardiac activity, but seemed unusually slow.? Not able to clearly differentiate 3 separate fetuses. She admits lower abdominal pain and cramping is better this morning. Bleeding is still present but seems a little less. No fever/chills. History of Present Criteria for establishing EDC:: LMP confirmed by 1st trimester US Labs Blood type: AB (+) positive Rubella: unknown RPR/VDRL: unknown HBsAG: unknown PFSH [facility] Disclaimer: The information contained in this section may have been updated after the patient was seen, as this information can be updated by other users. 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 caffeine: Yes Review of Systems Review of Systems Review of systems:: pertinent systems reviewed and negative unless documented below *Genitourinary Comments: + vaginal bleeding, pelvic cramping Meds Home Medications and Allergies Home Medications ?Medication ?Instructions ?Recorded ?Confirmed ?Type vits no.126-ferrous fum 1 tab PO DAILY 05/08/23 04/16/24 History 28 mg iron-folic acid 800 mcg tablet (Classic ) nitrofurantoin 100 mg PO BID 7 days #14 caps 04/11/24 04/16/24 Rx monohydrate/macrocrystals 100 mg capsule (Macrobid) New Prescriptions to Start Prescriptions: Allergies Allergy/AdvReac Type Severity Reaction Status Date / Time No Known Allergies Allergy Verified 04/16/24 05:32 OB - H&P: Exam Physical Exam Vital signs: Temp Pulse Resp BP Pulse Ox O2 Del Method 98.2 F 68 16 114/63 100 Room Air 04/16/24 04:30 04/16/24 04:30 04/16/24 04:30 04/16/24 04:30 04/16/24 04:30 04/16/24 08:10 Constitutional mild distress and cooperative Routine HEENT Exam Head: Present normocephalic and atraumatic Eye: Absent conjunctivae pink ENT: Present mucous membranes moist Routine Neck Exam Present full ROM Routine Respiratory Exam Present CTA bilaterally and normal respiratory effort Routine Cardiovascular Exam Present RRR Routine Abdominal Exam Present soft and tenderness (+ suprapubic tenderness to palpation); Absent distended Routine Rectal Exam Patient deferred: visual exam Routine Exam Patient deferred: external exam Routine Extremities Exam Present full ROM; Absent edema or calf tenderness Routine Neurological Exam Present alert, moving all extremities and normal speech Routine Psychiatric Exam Present cooperative Comments: + worried OB - Results Labs Labs: Short CBC 04/16/24 Range/Units 03:15 WBC 14.8 H (4.8-10.8) K/mm3 Hgb 12.8 (12.2-16.2) g/dL Hct 39.3 (37.0-47.0) % Plt Count 260 (142-424) K/mm3 BMP 04/16/24 03:15 Sodium 131 L Potassium 4.0 Chloride 104 Carbon Dioxide 21 L BUN 6 L Creatinine 0.50 L Glucose 95 Calcium 9.2 Liver Function 04/16/24 Range/Units 03:15 Total Bilirubin 0.5 (0.2-1.3) mg/dl AST 34 (14-36) U/L ALT 33 (12-78) U/L Alkaline Phosphatase 47 (38-126) U/L Albumin 3.9 (3.5-5.0) g/dl OB - A/P Antepartum (1) Vaginal bleeding in patient at less than 20 weeks gestation: Status: Acute (2) Triplet gestation in first trimester: Status: Acute (3) Anxiety with depression: Status: Acute (4) Recurrent loss: Status: Acute Additional Plan Additional Information:: Hgb this morning 12.8. ABO RH: AB positive Repeat ultrasound ordered this morning Abdominal pain/cramping has greatly improved. She believes bleeding is less in amount IV fluids
[2024-04-16 09:08] LABS: Lymphocytes % 8 % (10-50); Monocytes % 4 % (2-9); Neutrophils % 82 % (42-76); Total Cells Counted 100
[2024-04-16 09:09] LABS: Platelet Estimate Normal; RBC Morphology Normal
--- NOTE | 2024-04-16 09:35 | PC.NURSE ---
Pt returned from radiology
[2024-04-16 09:42] LABS: MANUAL DIFFERENTIAL MANUAL DIFFERENTIAL (MANUAL DIFF)
[2024-04-16 11:14] LABS: Hematocrit 36.8 % (37.0-47.0); Hemoglobin 12.2 g/dL (12.2-16.2)
[2024-04-16] MEDS: ONDANSETRON 4MG ODT 4 MG SL (12:17)
[2024-04-16 12:18] LABS: HCG,Quantitative 98001 mIU/ml (0-5.42)
--- NOTE | 2024-04-16 12:59 | P.DS_ITS ---
General Admission date:: 04/16/24 Discharge date: 04/16/24 HPI HPI HPI: Ms Herlinda Jason is a 23 yo at 9w2d admitted to [facility] L&D from ED for vaginal bleeding in early triplet . She states she went to bed last night around 2200. She woke up around 7355-1992 this morning to go to the bathroom. She thought she needed to have a BM. However, she ended passed a large clot and had lower abdominal pain/pelvic cramping. She went to the ED for evaluation. Point of care bedside ultrasound by ED physician noted: uterus appeared full of the heterogeneous material.? There did appear to be some possible cardiac activity, but seemed unusually slow.? Not able to clearly differentiate 3 separate fetuses. She admits lower abdominal pain and cramping is better this morning. Bleeding is still present but seems a little less. No fever/chills. Hospital Course Hospital Course Hospital Course: Ms Herlinda Jason is a 23 yo at 9w2d admitted to [facility] L&D from ED for vaginal bleeding in early triplet . She states she went to bed last night around 2200. She woke up around 2544-0178 this morning to go to the bathroom. She thought she needed to have a BM. However, she ended passed a large clot and had lower abdominal pain/pelvic cramping. She went to the ED for evaluation. Point of care bedside ultrasound by ED physician noted: uterus appeared full of the heterogeneous material.? There did appear to be some possible cardiac activity, but seemed unusually slow.? Not able to clearly d ifferentiate 3 separate fetuses. She admits lower abdominal pain and cramping is better this morning. Bleeding is still present but seems a little less. No fever/chills. Beta hcg quant 98,001 this morning. Beta hcg quant upon admission was 176,610. Repeat Hgb 12.2 (12.8). Pelvic ultrasound demonstrated incomplete with no heart tones present. The 3 gestational sacs are no longer present and there is heterogenous tissue within the uterine cavity. Retained products. 3. The right ovary has 3 follicles. The largest measures 4.8 cm. 4. There is a small amount of fluid in the cul-de-sac. Bleeding is appropriate. Vital signs stable, afebrile. She denies lightheadedness/dizziness, chest pain and shortness of breath. She is tearful. Discussed expectant management vs Cytotec vs D&C. She would like to go home and discuss with her family. She has follow-up appointment in the office tomorrow, 04/17/24. Exam Data for Last 24 hours Vital signs and Labs for Last 24 Hours: Temp Pulse Resp BP Pulse Ox O2 Del Method 97.8 F 91 H 17 105/64 L 96 Room Air 04/16/24 07:20 04/16/24 07:20 04/16/24 07:20 04/16/24 07:20 04/16/24 07:20 04/16/24 10:00 Laboratory Results - last 24 hr 04/16/24 03:15: WBC 14.8 H, RBC 4.21, Hgb 12.8, Hct 39.3, MCV 93.5, MCH 30.5, MCHC 32.6, RDW 13.6, Plt Count 260, MPV 8.4, Neut % (Auto) 87.7 H, Lymph % (Auto) 6.4 L, Page % (Auto) 4.7, Eos % (Auto) 0.1, Baso % (Auto) 0.2, Neut # (Auto) 13.0 H, Lymph # (Auto) 1.0, Page # (Auto) 0.7, Eos # (Auto) 0.0, Baso # (Auto) 0.0, Total Counted 100, Neutrophils % (Manual) 82 H, Band Neutrophils % 6.0, Lymphocytes % (Manual) 8 L, Monocytes % (Manual) 4, Platelet Estimate Normal, RBC Morphology Normal, Sodium 131 L, Potassium 4.0, Chloride 104, Carbon Dioxide 21 L, Anion Gap 10.0, BUN 6 L, Creatinine 0.50 L, Estimated GFR 154, Est GFR ( Amer) 187, Glucose 95, Calcium 9.2, Total Bilirubin 0.5, AST 34, ALT 33, Alkaline Phosphatase 47, Total Protein 6.6, Albumin 3.9, Globulin 2.7, Albumin/Globulin Ratio 1.4, HCG, Quant [id number] H, Blood Type AB Positive, Antibody Screen Negative 04/16/24 10:55: Hgb 12.2, Hct 36.8 L, HCG, Quant 35598 H I & O for Last 24 hours: Intake & Output 04/13/24 04/14/24 04/15/24 04/16/24 23:59 23:59 23:59 23:59 Weight 110 lb Constitutional Constitutional: thin and cooperative *Routine HEENT Exam Head: Present normocephalic and atraumatic Eye: Absent conjunctivae pink ENT: Present mucous membranes moist *Routine Neck Exam Neck: Present full ROM *Routine Respiratory Exam Respiratory: Present CTA bilaterally and normal respiratory effort *Routine Cardiovascular Exam Cardiovascular: Present RRR *Routine Abdominal Exam Abdominal: Present soft and normoactive bowel sounds; Absent tenderness or distended *Routine Rectal Exam Patient deferred: visual exam *Routine Exam Patient deferred: external exam *Routine Extremities Exam Extremities: Present full ROM; Absent edema or calf tenderness Results Data Completed and Pending Labs on day of discharge: Labs from last 24 hours 04/16/24 04/16/24 10:55 03:15 WBC 14.8 H RBC 4.21 Hgb 12.2 12.8 Hct 36.8 L 39.3 MCV 93.5 MCH 30.5 MCHC 32.6 RDW 13.6 Plt Count 260 MPV 8.4 Neut % (Auto) 87.7 H Lymph % (Auto) 6.4 L Page % (Auto) 4.7 Eos % (Auto) 0.1 Baso % (Auto) 0.2 Neut # (Auto) 13.0 H Lymph # (Auto) 1.0 Page # (Auto) 0.7 Eos # (Auto) 0.0 Baso # (Auto) 0.0 Total Counted 100 Neutrophils % (Manual) 82 H Band Neutrophils % 6.0 Lymphocytes % (Manual) 8 L Monocytes % (Manual) 4 Platelet Estimate Normal RBC Morphology Normal Sodium 131 L Potassium 4.0 Chloride 104 Carbon Dioxide 21 L Anion Gap 10.0 BUN 6 L Creatinine 0.50 L Estimated GFR 154 Est GFR ( Amer) 187 Glucose 95 Calcium 9.2 Total Bilirubin 0.5 AST 34 ALT 33 Alkaline Phosphatase 47 Total Protein 6.6 Albumin 3.9 Globulin 2.7 Albumin/Globulin Ratio 1.4 HCG, Quant 47205 H 305126 H Blood Type AB Positive Antibody Screen Negative DS: Diagnosis Discharge Diagnosis (1) Incomplete : Status: Acute Code(s): O03.4 - Incomplete spontaneous without complication (2) Vaginal bleeding in patient at less than 20 weeks gestation: Status: Acute Code(s): O20.9 - Hemorrhage in early , unspecified (3) Triplet gestation in first trimester: Status: Acute Code(s): O30.101 - Triplet , unspecified number of placenta and unspecified number of amniotic sacs, first trimester (4) Anxiety with depression: Status: Acute Code(s): F41.8 - Other specified anxiety disorders (5) Recurrent loss: Status: Acute Code(s): N96 - Recurrent loss Meds Home Medications and Allergies Home Medications ?Medication ?Instructions ?Recorded ?Confirmed ?Type vits no.126-ferrous fum 1 tab PO DAILY 05/08/23 04/16/24 History 28 mg iron-folic acid 800 mcg tablet (Classic ) nitrofurantoin 100 mg PO BID 7 days #14 caps 04/11/24 04/16/24 Rx monohydrate/macrocrystals 100 mg capsule (Macrobid) New Prescriptions to Start Prescriptions: Allergies Allergy/AdvReac Type Severity Reaction Status Date / Time No Known Allergies Allergy Verified 04/16/24 05:32 Discharge Plan Disposition Patient Disposition: Home, Self-Care Condition: Fair Follow up Plan Follow up with: Symone Michaels DO [Staff Physician] - 1 day Prescriptions/Medication Reconciliation: Continued Classic 28 mg iron- 800 mcg tablet 1 tab PO DAILY nitrofurantoin monohyd/m-cryst [Macrobid] 100 mg capsule 100 mg PO BID 7 Days Qty: 14 0RF Rx Instructions: must administer with a meal/food Problem Reconciliation Problems Reviewed?: Yes Patient Discharge Instructions ACTIVITY: Limited activity DIET: continue same diet and regular diet Print Language: Moroccan Providers Primary Care Provider: Zach Wang Admit Provider: Kanika Madrid Attending Provider: Kanika Madrid
== END 2024-04-16 14:13 | disposition home or self-care (01) ==
LOC: ER 04:12 → OB 04:14
PROVIDERS: Emergency Medicine; Obstetrics & Gynecology; Admitting Provider Obstetrics & Gynecology; Emergency Provider Internal Medicine Adolescent Medicine; PCP Family Medicine; Visit Provider Obstetrics & Gynecology
DX: O03.4 Incomplete spontaneous abortion without complication (principal); O30.101 Triplet pregnancy, unspecified number of placenta and unspecified number of amniotic sacs, first trimester; F41.8 Other specified anxiety disorders; N96 Recurrent pregnancy loss; Z3A.09 9 weeks gestation of pregnancy
CPT/HCPCS: 76801; 76802; 80053; 84702; 85007; 85014; 85018; 85025; 85027; 86850; G0378; Q0162

== ENCOUNTER 2024-04-21 10:40 | Outpatient (CLI) | payer BC, SELFPAY ==
[2024-04-21 14:49] LABS: HCG,Quantitative 25049 mIU/ml (0-5.42)
== END 2024-04-21 23:59 | disposition home or self-care (01) ==
LOC: LAB 10:41
PROVIDERS: PCP Family Medicine; Visit Provider Obstetrics & Gynecology
DX: O03.9 Complete or unspecified spontaneous abortion without complication (principal)
CPT/HCPCS: 36415; 84702

== ENCOUNTER 2024-05-15 07:32 | Outpatient (CLI) | payer BC, SELFPAY ==
--- NOTE | 2024-05-15 07:35 | US_ITS ---
PROCEDURE: US TRANSVAGINAL CLINICAL INDICATION: post op pain COMPARISON: US POINT OF CARE US (ER ONLY) from 04/27/2024 FINDINGS: Transvaginal sonographic images of the pelvis were obtained. UTERUS: 9.2cm x 6cmx 4.5cm with a combined endometrial thickness of 7.5mm. Within the lower uterine segment there is an area of clot measuring 5.1 cm x 2.1 cm x 2.8cm. The upper cervix is distended by this clot. LEFT OVARY: 4.6 cmx2 pointx2.4cm with a volume of 17.1ml. There are multiple small peripheral follicles. RIGHT OVARY: 5.0cmx 4.1cmx4.1cm with a volume of 44.2ml. There are several follicles. Follicle 1. 2.0 cm. Follicle 2. 1.8 cm. There is a small solid area on the inferior wall of this follicle. Both ovaries are seen and appear normal. Doppler flow to both ovaries are seen. There is no fluid in the cul-de-sac. IMPRESSION: 1. Anteverted bulky uterus. The endometrium is thin. 2. Within the lower uterine cavity and upper cervix there is a clot that measures 5.1 x 2.8 cm. 3. The left ovary appears polycystic. 4. The right ovary has several follicles. The largest measures 2.0 cm. Follicle 2 has a small solid area on the wall. Suggest follow-up ultrasound in 3 months. 5. No fluid in the cul-de-sac. Dictated by: Satinder Soler MD 05/15/2024 08:52 Satinder Soelr MD in OV 05/15/2024 08:52
== END 2024-05-15 23:59 | disposition home or self-care (01) ==
LOC: RAD 07:33
PROVIDERS: PCP Family Medicine; Visit Provider Obstetrics & Gynecology
DX: R10.2 Pelvic and perineal pain (principal); G89.18 Other acute postprocedural pain; O03.9 Complete or unspecified spontaneous abortion without complication
CPT/HCPCS: 76830

== ENCOUNTER 2024-05-16 11:59 | Outpatient (CLI) | payer BC, SELFPAY ==
[2024-05-16 13:48] LABS: HCG Qualitative, Serum Positive (Negative)
[2024-05-16 15:20] LABS: HCG,Quantitative 51 mIU/ml (0-5.42)
== END 2024-05-16 23:59 | disposition home or self-care (01) ==
PROVIDERS: Obstetrics & Gynecology; PCP Family Medicine; Visit Provider Family Medicine
DX: Z87.59 Personal history of other complications of pregnancy, childbirth and the puerperium (principal); O03.9 Complete or unspecified spontaneous abortion without complication
CPT/HCPCS: 36415; 84702; 84703

== ENCOUNTER 2024-05-20 12:06 | Outpatient (CLI) | payer BC, SELFPAY ==
[2024-05-20 13:45] LABS: HCG,Quantitative 46 mIU/ml (0-5.42)
== END 2024-05-20 23:59 | disposition home or self-care (01) ==
LOC: LAB 12:06
PROVIDERS: PCP Family Medicine; Visit Provider Obstetrics & Gynecology
DX: O03.9 Complete or unspecified spontaneous abortion without complication (principal)
CPT/HCPCS: 36415; 84702

== ENCOUNTER 2024-05-22 10:28 | Day surgery (SDC) | payer BC, SELFPAY ==
[2024-05-22] VITALS (11 sets, daily range): BP systolic 112–155; BP diastolic 62–95; PULSE 55–89; RESP 16–18; TEMP 36.6–36.7; O2SAT 92–100; BMI 18.8
[2024-05-22] MEDS: LACTATED RINGERS 1000ML 1,000 ML 25 ML IV (10:56)
--- NOTE | 2024-05-22 11:00 | EXP.ANES.CKL ---
[facility] Disclaimer: The information contained in this section may have been updated after the patient was seen, as this information can be updated by other users. Medical History Spontaneous Incomplete Nausea and vomiting Triplet gestation Vaginal bleeding affecting early Anxiety with depression Surgical History History of dilation and curettage Family History Other Coronary artery disease Diabetes FHx: mental illness Heart attack Thyroid disorder Social History Smoking Status: Current every day smoker tobacco type: e-cigarettes second hand exposure: No alcohol intake: never substance use type: denies use current occupational status: employed Travel in the last 8 weeks: None household members: family housing: house current occupation: cec[employer] caffeine: Yes [facility] Anesthesia Checklist Patient Identification Patient Identification: Arm Band and Verbal (Name & ) Structural Data Admitted From: Home Planned Operative Procedure/s: Hyst/D &C Consent for Planned Operative Procedure(s) Verified: Yes Verified Documents: Surgical Consent and History and Physical NPO Status Verified Time NPO: 00:00 Chart Verification Results Verified: HCG Additional verifications Anesthesia Reactions: No Hx Blood Transfusions: No Blood Transfusion Reaction: No Airway Assessment Mallampati Score:: Class I C-Spine Mobility Assessed: Yes TMJ Mobility Assessed: Yes Dentition: Good Dentition Neurological Assessment Level of Consciousness: Awake Hx Seizures: No Numbness or tingling in extremities: No Anesthesia Plan Anesthesia Risk discussed: Yes Anesthesia Plan: Verified ASA Class: I Anesthesia Type: General
[2024-05-22 11:42] LABS: HCG Qualitative, Serum Positive (Negative)
--- NOTE | 2024-05-22 14:46 | P.PNANES_ITS ---
[facility] Anesthesia Record Part I Anesthesia Record I Intake, IV Amount: 1,200 Hydration: Adequate Estimated blood loss (mL): 50 Urine output (mL): 0 Blood Products used (#): none Blood Pressure: 130/83 SaO2: 100 Pulse Rate: 88 Airway Patency: Patent Respiratory Rate: 16 Temperature: 97.8 F Patient is:: Drowsy and Stable Stable to PACU at:: 14:45
[2024-05-22] MEDS: ONDANSETRON 4MG/2ML VIAL 4 MG IV (14:59)
[2024-05-22] MEDS: MEPERIDINE 25MG/ML 1ML SYRINGE 25 MG IV (14:59)
[2024-05-22 15:00] LABS: HCG,Quantitative 39 mIU/ml (0-5.42)
[2024-05-22] MEDS: PROMETHAZINE HCL 25MG/ML 1ML VIAL 6.25 MG IV (15:03)
--- NOTE | 2024-05-22 15:14 | P.OP_ITS ---
Date of procedure: 05/22/24 Pre-op Diagnosis:: 1. Cervical Mass 2. Spontaneous Post-op Diagnosis:: 1. Cervical Mass 2. Spontaneous Procedure performed:: Hysteroscopy, dilation, and MyoSure myomectomy Surgeon:: Kanika Madrid DO SALES OPERATIONS ASSISTANT:: Ayden Vargas Anesthesia: GETA Estimated blood loss (mL): 25 Operative findings:: Findings: -EUA revealed an 8-week anteverted uterus with regular contour. No significant prolapse or support defects noted. -Hysteroscopy revealed a very large, cavity filling, suspected fibroid. This started at the level of the internal os and extended to the fundus. Visualization was difficult. -The Procedure was stopped at a safe point to be completed at a later date, given reasons below. Operative note:: The patient was taken back to the OR where general anesthesia was obtained.? She was placed in the dorsal lithotomy position using yellow fin stirrups and sterilely prepped and draped in the usual fashion.? An in and out catheter was used to drain her bladder.? A timeout was performed.? A weighted speculum was used to visualize this cervix, a single-tooth tenaculum was applied to the anterior lip of the cervix. The cervix was only slightly dilated to allow entry to the ectocervix and hydrodisection was used to get the scope the rest of the way into the cavity. With the insertion of the first dilator bleeding from the external cervical os was noted. The hysterscope was inserted and secondary to the space occupying fibroid and bleeding visualization was difficult. Also the cervix was significantly dilated and there was no cervical seal and the uterus could not dilate or cervix maintain a watertight seal. I attempted to use a ring forcep to clamp the cervix tight to the hysteroscope without success. An latisha was used to create a seal. After that was established it took a significant amount of time to clear the blood from the cavity to allow through evaluation. Images of the bilateral tubal ostia were obtained. The mass was noted to extend into the uterine cavity. Decision was made to proceed with the MyoSure for removal. Device set up, primed and zeroed. The device was used to resect the outer edge of the what I believe to be a fibroid. The fluid deficit remained around 250-300mL thoroughout the majority of the case. The suction cannister became full and was required to be changed and during that process the bag from the drape was very full. After the cannister was changed our deficit went up to 950+mLs. At this point visualization was still very challenging. The myosure cutting time was at over 7minutes and the bleeding was stable. Decision was made to complete the rest of the removal at a later time. Images were obtained of what remained. Given concern for oozing which may lead to uterine scarring and Ashermans syndrome, a robledo catheter with 10mLs of fluid was placed in the uterus. She will return to clinic tomorrow to have it removed. She will continue the doxycycline she is already taking. All instruments were removed from the vagina and hemostasis noted. There was no bleeding appreciated from the cervical os.? All counts were correct, per nursing.? This concluded the procedure, the patient was awakened from anesthesia , and transferred to the PACU in stable condition. Condition: stable Disposition: PACU Specimens:: Cervical mass Complications:: None
--- NOTE | 2024-05-22 15:14 | SUR.OPER ---
Per Dr. Madrid pt is going home with robledo balloon with 10 cc of sterile water injected to keep balloon is place and see patient in the am in the office to come up with a plan on completing the procedure to get the remainder of the mass.
[2024-05-22] MEDS: MORPHINE 2MG/ML SYRINGE 2 MG IV ×2 (15:18→15:27)
[2024-05-22] MEDS: HYDROMORPHONE 2MG/ML SYRINGE 0.5 MG IV (15:32)
--- NOTE | 2024-05-23 08:31 | P.PNANES_ITS ---
[facility] Anesthesia Record Part II Anesthesia Record Part II Discharge Time: 15:35 Destination: Surgical Day Care (OP Surgery) PACU nurse assessment reviewed?: Yes Patient Condition:: Good Anesthesia Complications:: None Swallowing reflex intact?: Yes Airway Patency: Patent Cyanosis?: No Blood Pressure: 142/91 SaO2: 100 Respiratory Rate: 18 Pulse Rate: 73 Temperature: 97.8 F Mental Status: Alert & Oriented Pain level:: 8 Nausea and/or vomitting:: None Intake, IV Amount: 0 Hydration: Adequate
[2024-05-23 08:32] VITALS: BP 142/91; PULSE 73; RESP 18; TEMP 36.6; O2SAT 100
== END 2024-05-22 16:14 | disposition home or self-care (01) ==
PROVIDERS: PCP Family Medicine; Visit Provider Obstetrics & Gynecology
PROC: (CPT 58558; principal; 2024-05-22 12:00)
DX: D26.0 Other benign neoplasm of cervix uteri (principal); O03.9 Complete or unspecified spontaneous abortion without complication
CPT/HCPCS: 58558; 84702; 84703; J1100; J1170; J1885; J2175; J2250; J2270; J2405; J2550; J3010; J7120

== ENCOUNTER 2024-05-25 11:04 | Emergency (ER) | payer BC, SELFPAY ==
[2024-05-25 11:14] VITALS: BP 132/89; PULSE 82; RESP 16; TEMP 37; O2SAT 100; BMI 18.8
[2024-05-25 11:27] VITALS: BP 132/89; PULSE 83; O2SAT 99
[2024-05-25 11:28] VITALS: BP 121/78; PULSE 91; O2SAT 98
[2024-05-25 11:30] VITALS: BP 121/82; PULSE 87; O2SAT 98
--- NOTE | 2024-05-25 11:33 | HMH.EDGENADL ---
Discharge Plan Disposition Patient Disposition: Home, Self-Care Condition: Good Chief Complaint: Vaginal Bleeding Prescriptions Prescriptions: No Action Classic 28 mg iron- 800 mcg tablet 1 tab PO DAILY doxycycline monohydrate 100 mg capsule 100 mg PO DAILY Patient Comments: TAKE ONE CAPSULE BY MOUTH TWICE DAILY FOR 10 DAYS -- FINISH ALL MEDICINE -- vancomycin 125 mg capsule 125 mg PO DIRECTED Patient Comments: TAKE ONE CAPSULE BY MOUTH FOUR TIMES DAILY FOR 10 DAYS -- FINISH ALL MEDICINE -- sennosides [Senna Lax] 8.6 mg Tablet 8.6 mg PO BIDP PRN (Reason: Constipation) Qty: 60 2RF ibuprofen 800 mg tablet 800 mg PO Q8H PRN (Reason: pain) Qty: 60 2RF ferrous sulfate 325 mg (65 mg iron) tablet,delayed release (DR/EC) 325 mg PO DAILY Qty: 30 3RF oxycodone 5 mg tablet 5 mg PO Q8H PRN (Reason: pain) Qty: 10 0RF Referrals Follow up/Referrals: Zach Wang MD [Primary Care Provider] - See instructions Activity Restrictions/Add. Instructions Additional Instructions/Restrictions: Return to the emergency department for recurrence of bleeding. Follow-up with MARKETING EDITOR as scheduled. Clinical Impressions Clinical Impression: Abnormal vaginal bleeding Print Language Print Language: [place] Citizen Discharge ED Provider: Melvi Zaragoza General Adult HPI General Chief complaint: Vaginal Bleeding Stated complaint: bleeding after hysteroscopy Time Seen by Provider: 05/25/24 11:33 Mode of Arrival: Ambulatory Source of Information: Patient Limitations: No Limitations Description of Symptoms (Recalled from ER Triage Doc. by RN): Pt. states she is 3 days post hysteroscopy with Dr. Madrid. She had this procedure to remove what they suspect is a large fibroid. She states they were only able to remove some of the fibroid and she would need a second surgery to remove the other half. Since the procedure she has had some bleeding but at around 10 am she had a very large gush with clots that filled up more than 1 pad. She states she is still expieriancing heavy bleeding. History of Present Illness HPI narrative: Patient is a 23-year-old with past medical history significant for uterine fibroid status post hysteroscopy on 05/22 complicated by 1 L of blood loss with placement of intrauterine Ramirez for hemostasis that was removed on the presents for persistent vaginal bleeding that started approximately 1-1/2 hours ago. Patient has gone through 3 pads with persistent large volume gushes that have come out. Denies pain has 1 out of 10 discomfort suprapubically no trauma to the vagina or area. No heavy exertion prior to the start of bleeding. Related Data Home Medications ?Medication ?Instructions ?Recorded ?Confirmed vits no.126-ferrous fum 1 tab PO DAILY 05/13/24 05/23/24 28 mg iron-folic acid 800 mcg tablet (Classic ) doxycycline monohydrate 100 mg 100 mg PO DAILY 05/20/24 05/23/24 capsule vancomycin 125 mg capsule 125 mg PO DIRECTED 05/20/24 05/23/24 Previous Rx's ?Medication ?Instructions ?Recorded ferrous sulfate 325 mg (65 mg 325 mg PO DAILY #30 tabs 05/22/24 iron) tablet,delayed release ibuprofen 800 mg tablet 800 mg PO Q8H PRN pain #60 tabs 05/22/24 oxycodone 5 mg tablet 5 mg PO Q8H PRN pain #10 tabs 05/22/24 sennosides 8.6 mg tablet (Senna 8.6 mg PO BIDP PRN Constipation 05/22/24 Lax) #60 tabs Allergies Allergy/AdvReac Type Severity Reaction Status Date / Time No Known Allergies Allergy Verified 05/23/24 09:53 [facility] Disclaimer: The information contained in this section may have been updated after the patient was seen, as this information can be updated by other users. Medical History Spontaneous Incomplete Nausea and vomiting Triplet gestation Vaginal bleeding affecting early Anxiety with depression Surgical History History of dilation and curettage 04-29-24 anembryonic Family History Other Coronary artery disease Diabetes FHx: mental illness Heart attack Thyroid disorder Social History Smoking Status: Never smoker second hand exposure: No alcohol intake: never substance use type: denies use current occupational status: employed Travel in the last 8 weeks: None household members: family housing: house current occupation: [employer] caffeine: Yes ROS Obtained: Yes All systems reviewed & no additional complaints except as documented Physical Exam General General appearance: alert and in no apparent distress Respiratory Respiratory exam: Present normal lung sounds bilaterally; Absent respiratory distress Cardiovascular Cardiovascular exam: Present regular rate and normal rhythm Neurological Exam Neurological exam: Present alert Medical Decision Making Medical Records Screening: Per USPSTF and CDC recommendations, given the prevalence of disease in our region, it is our hospital?s policy to screen for HIV and viral Hepatitis for all patients aged 18 and over and those with ongoing risk factors. [place] Inquiry Pt receiving controlled substance: No Vital Signs: 05/25/24 11:14 05/25/24 11:27 05/25/24 11:28 Temperature 98.6 F Temperature Source Oral Pulse Rate 83 91 H Pulse Rate [Right Brachial] 82 Respiratory Rate 16 Blood Pressure 132/89 121/78 Blood Pressure [Right Arm] 132/89 Blood Pressure Mean [Right Arm] 103 Blood Pressure Source [Right Arm] Automatic Cuff Blood Pressure Position [Right Arm] Sitting 02 Sat by Pulse Oximetry 100 99 98 Oxygen Delivery Method Room Air Room Air Room Air 05/25/24 11:30 05/25/24 12:00 Temperature Temperature Source Pulse Rate 87 85 Pulse Rate [Right Brachial] Respiratory Rate Blood Pressure 121/82 114/83 Blood Pressure [Right Arm] Blood Pressure Mean [Right Arm] Blood Pressure Source [Right Arm] Blood Pressure Position [Right Arm] 02 Sat by Pulse Oximetry 98 98 Oxygen Delivery Method Room Air Room Air Lab Data Lab Results 05/25/24 11:28: WBC 6.3, RBC 4.37, Hgb 13.3, Hct 41.0, MCV 93.7, MCH 30.5, MCHC 32.5, RDW 13.5, Plt Count 244, MPV 8.0, Neut % (Auto) 58.8, Lymph % (Auto) 30.9, [place] % (Auto) 7.0, Eos % (Auto) 2.2, Baso % (Auto) 1.0, Neut # (Auto) 3.7, Lymph # (Auto) 2.0, [place] # (Auto) 0.4, Eos # (Auto) 0.1, Baso # (Auto) 0.1, PT 11.8, INR 1.06, APTT 26.7, Sodium 140, Potassium 3.2 L, Chloride 110 H, Carbon Dioxide 24, Anion Gap 9.2, BUN 8, Creatinine 0.60, Estimated Creat Clear 126, Estimated GFR 125, Est GFR ( Amer) 151, Glucose 96, Calcium 9.7, Total Bilirubin 0.5, AST 29, ALT 20, Alkaline Phosphatase 51, Total Protein 7.2, Albumin 4.7, Globulin 2.5, Albumin/Globulin Ratio 1.9 H, HIV 1&2 Antibody Rapid Nonreactive 05/25/24 11:41: Lactate 1.0 05/25/24 11:28 05/25/24 11:28 Orders (Tests/Meds): ED MEDICATIONS Discontinued Medications Generic Name Dose Route Start Last Admin Trade Name Freq PRN Reason Stop Dose Admin Ketorolac Tromethamine 30 mg 05/25/24 12:23 05/25/24 12:25 Ketorolac 30mg/Ml Vial IV 05/25/24 12:24 30 mg ONCE ONE Administration ORDERS Category Date Time Status Type and Screen Stat BBK 05/25/24 11:41 Received Activated Partial Thrombo Time Stat Lab 05/25/24 11:28 Completed Complete Blood Count Auto Diff Stat Lab 05/25/24 11:28 Completed Comprehensive Metabolic Panel Stat Lab 05/25/24 11:28 Completed HIV (1&2) Antibody Rapid Stat Lab 05/25/24 11:28 Completed Hep C Ab with Reflex to RNA Stat Lab 05/25/24 11:28 Received Lactic Acid Stat Lab 05/25/24 11:41 Completed Prothrombin Time INR Stat Lab 05/25/24 11:28 Completed Medical Decision Narrative: In summary, this 23-year-old female presents to the emergency department today with vaginal bleeding. On initial evaluation patient is upon presentation patient hemodynamically stable saturating appropriately on room air afebrile no acute distress. Differential diagnosis includes but is not limited to postoperative complication coagulopathy anemia. Based on these concerns, I ordered CBC CMP PT INR PTT type and screen. Labs personally reviewed demonstrate stable hemoglobin I had an interactive discussion with gynecology who placed a pediatric Ramirez balloon in patient's uterus On reassessment patient remained hemodynamically stable symptoms improved amenable to discharge at this time with outpatient follow-up with gynecology Of note, social determinants of health include inability to obtain timely appointment with specialist. Critical Care Critical Care Time Critical Care Time: No
[2024-05-25 11:48] LABS: Basophils # 0.1 K/mm3 (0-0.2); Eosinophils # 0.1 K/mm3 (0.0-0.4); Eosinophils % 2.2 % (0.1-12.0); Hemoglobin 13.3 g/dL (12.2-16.2); Lymphocytes % 30.9 % (10-50); Mean Corpuscular HGB Conc 32.5 g/dL (31.8-35.4); Mean Corpuscular Hemoglobin 30.5 pg (27.0-31.2); Mean Corpuscular Volume 93.7 fl (81-99); Monocytes # 0.4 K/mm3 (0.1-1.0); Neutrophils # 3.7 K/mm3 (1.8-7.8); Neutrophils % 58.8 % (37.0-80.0); Platelet Count 244 K/mm3 (142-424); Red Blood Count 4.37 M/mm3 (4.20-5.40); Red Cell Distribution Width 13.5 % (11.5-17.5); White Blood Count 6.3 K/mm3 (4.8-10.8)
[2024-05-25 11:49] LABS: Albumin Level 4.7 g/dl (3.5-5.0); Chloride 110 mmol/L (98-107); Sodium 140 mmol/L (136-145)
[2024-05-25 11:50] LABS: Potassium 3.2 mmoL/L (3.5-5.1)
[2024-05-25 11:52] LABS: Alanine Aminotransferase 20 U/L (12-78); Albumin/Globulin Ratio 1.9 (1.1-1.8); Alkaline Phosphatase 51 U/L (38-126); Anion Gap 9.2 mEq/L (5-15); Aspartate Amino Transferase 29 U/L (14-36); Bilirubin,Total 0.5 mg/dl (0.2-1.3); Blood Urea Nitrogen 8 mg/dl (7-17); Carbon Dioxide 24 mmol/L (22.0-30.0); Creatinine Clearance Estimated 126 mL/min (50-200); Estimated Glomerular Filt Rate 125 ml/min (>60); GFR (African American) 151 ML/MIN (>60); Globulin 2.5 g/dL (1.3-3.2); Total Protein,Serum 7.2 g/dl (6.3-8.2)
[2024-05-25 11:53] LABS: Calcium 9.7 mg/dl (8.4-10.2); Glucose 96 mg/dl (74-100)
[2024-05-25 11:55] LABS: Activated Partial Thrombo Time 26.7 seconds (22.8-30.6); INR 1.06 (0.9-1.1); Prothrombin Time 11.8 seconds (10.1-12.5)
--- NOTE | 2024-05-25 11:59 | PC.NURSE ---
on phone with obbethany
[2024-05-25 12:00] VITALS: BP 114/83; PULSE 85; O2SAT 98
[2024-05-25 12:19] LABS: HIV (1&2) Antibody Rapid NONREACTIVE (NONREACTIVE)
[2024-05-25] MEDS: KETOROLAC 30MG/ML VIAL 30 MG IV (12:25)
--- NOTE | 2024-05-25 13:06 | PC.NURSE ---
Dr. Soler at bedside. Placing an 8 fr. catheter through the cervix and into the uterus. Catheter filled with 10 cc of NS and secured to thigh. Instructions given to pt. to f/u in the office tomorrow.
[2024-05-25 13:11] VITALS: BP 114/83; PULSE 77; RESP 18; TEMP 36.8; O2SAT 95
--- NOTE | 2024-05-25 13:12 | P.CONS_ITS ---
History of Present Illness *Reason for visit:: Vaginal bleeding *History of present illness: She is a 23-year-old lady who recently had a hysteroscopy with D&C and MyoSure for a large endometrial polyp. This was done 3 days ago. She returned to the ER today with heavy vaginal bleeding and was soaking through pads about every hour. [facility] Disclaimer: The information contained in this section may have been updated after the patient was seen, as this information can be updated by other users. Medical History Spontaneous Incomplete Nausea and vomiting Triplet gestation Vaginal bleeding affecting early Anxiety with depression Surgical History History of dilation and curettage Family History Diabetes Coronary artery disease Heart attack FHx: mental illness Thyroid disorder Social History Smoking Status: Never smoker second hand exposure: No alcohol intake: never substance use type: denies use current occupational status: employed Travel in the last 8 weeks: None household members: family housing: house current occupation: [employer] caffeine: Yes Review of Systems Review of Systems Review of systems:: pertinent systems reviewed and negative unless documented below Meds Home Medications and Allergies Home Medications ?Medication ?Instructions ?Recorded ?Confirmed ?Type vits no.126-ferrous fum 1 tab PO DAILY 05/13/24 05/23/24 History 28 mg iron-folic acid 800 mcg tablet (Classic ) doxycycline monohydrate 100 mg 100 mg PO DAILY 05/20/24 05/23/24 History capsule vancomycin 125 mg capsule 125 mg PO DIRECTED 05/20/24 05/23/24 History ferrous sulfate 325 mg (65 mg 325 mg PO DAILY #30 tabs 05/22/24 05/23/24 Rx iron) tablet,delayed release ibuprofen 800 mg tablet 800 mg PO Q8H PRN pain #60 tabs 05/22/24 05/23/24 Rx oxycodone 5 mg tablet 5 mg PO Q8H PRN pain #10 tabs 05/22/24 05/23/24 Rx sennosides 8.6 mg tablet (Senna 8.6 mg PO BIDP PRN Constipation 05/22/24 05/23/24 Rx Lax) #60 tabs New Prescriptions to Start Prescriptions: Allergies Allergy/AdvReac Type Severity Reaction Status Date / Time No Known Allergies Allergy Verified 05/23/24 09:53 Exam (Inpt) Vital signs and Labs for Last 24 Hours: Temp Pulse Resp BP Pulse Ox O2 Del Method 98.2 F 77 18 114/83 98 Room Air 05/25/24 13:11 05/25/24 13:11 05/25/24 13:11 05/25/24 13:11 05/25/24 12:00 05/25/24 12:00 Laboratory Results - last 24 hr 05/25/24 11:28: WBC 6.3, RBC 4.37, Hgb 13.3, Hct 41.0, MCV 93.7, MCH 30.5, MCHC 32.5, RDW 13.5, Plt Count 244, MPV 8.0, Neut % (Auto) 58.8, Lymph % (Auto) 30.9, [place] % (Auto) 7.0, Eos % (Auto) 2.2, Baso % (Auto) 1.0, Neut # (Auto) 3.7, Lymph # (Auto) 2.0, [place] # (Auto) 0.4, Eos # (Auto) 0.1, Baso # (Auto) 0.1, PT 11.8, INR 1.06, APTT 26.7, Sodium 140, Potassium 3.2 L, Chloride 110 H, Carbon Dioxide 24, Anion Gap 9.2, BUN 8, Creatinine 0.60, Estimated Creat Clear 126, Estimated GFR 125, Est GFR ( Amer) 151, Glucose 96, Calcium 9.7, Total Bilirubin 0.5, AST 29, ALT 20, Alkaline Phosphatase 51, Total Protein 7.2, Albumin 4.7, Globulin 2.5, Albumin/Globulin Ratio 1.9 H, HIV 1&2 Antibody Rapid Nonreactive 05/25/24 11:41: Lactate 1.0, Blood Type AB Positive I & O for Labs for Last 24 Hours: Intake & Output 05/23/24 05/24/24 05/25/24 05/26/24 11:59 11:59 11:59 11:59 Weight 120 lb HEENT Head: Present normocephalic ENT: Present normal exam Neck: Present normal inspection Respiratory: Present normal respiratory effort; Absent accessory muscle use : Present normal urethra appearance; Absent swelling or tenderness Vagina: Absent discharge (There was a ping-pong ball size clot at the vaginal vault.) Assessment and Plan *Assessment and plan (1) Abnormal vaginal bleeding: Status: Acute Category: Medical Code(s): N93.9 - Abnormal uterine and vaginal bleeding, unspecified (2) Cervical mass: Status: Acute Category: Medical Code(s): N88.8 - Other specified noninflammatory disorders of cervix uteri Plan She had a rather large clot at the vaginal vault and there was some clot coming out of the cervix. There was really no heavy bleeding when I examined her in the ER. I did put an 8 Telugu Ramirez catheter in the uterine cavity after cleaning with Hibiclens. I inserted 10 cc of saline within the Ramirez. She was not actively bleeding. Will send her home to follow-up with me tomorrow and we will remove the Ramirez catheter at that time. She is discharged home in stable condition.
[2024-05-26 11:10] LABS: HCV Ab Non Reactive (Non Reactive)
== END 2024-05-25 13:15 | disposition home or self-care (01) ==
PROVIDERS: Emergency Provider Student in an Organized Health Care Education/Training Program; PCP Family Medicine
DX: N93.9 Abnormal uterine and vaginal bleeding, unspecified (principal); N88.8 Other specified noninflammatory disorders of cervix uteri; E87.6 Hypokalemia
CPT/HCPCS: 80053; 83605; 85025; 85610; 85730; 86803; 86850; 87389; 96374; 99284; J1885

== ENCOUNTER 2024-05-30 10:11 | Outpatient (CLI) | payer BC, SELFPAY ==
[2024-05-30 11:39] LABS: HCG,Quantitative 12 mIU/ml (0-5.42)
== END 2024-05-30 23:59 | disposition home or self-care (01) ==
PROVIDERS: PCP Family Medicine; Visit Provider Obstetrics & Gynecology
DX: N93.9 Abnormal uterine and vaginal bleeding, unspecified (principal)
CPT/HCPCS: 36415; 84702

== ENCOUNTER 2024-06-11 11:17 | Outpatient (CLI) | payer BC, SELFPAY ==
[2024-06-11 11:21] LABS: Adenovirus F 40/41, stool Not Detected (NotDetected); Astrovirus Not Detected (NotDetected); Campylobacter Not Detected (NotDetected); Clostridium Difficile A/B, PCR Not Detected (NotDetected); Cryptosporidium Not Detected (NotDetected); Cyclospora Cayetanesis Not Detected (NotDetected); Entamoeba histolytica Not Detected (NotDetected); Enteroaggregative E coli Not Detected (NotDetected); Enteropathogenic E coli Not Detected (NotDetected); Enterotoxigenic E coli Not Detected (NotDetected); Giardia lamblia Not Detected (NotDetected); Plesimonas Shigalloides, PCR Not Detected (NotDetected); Rotavirus A Not Detected (NotDetected); Salmonella, PCR Not Detected (NotDetected); Sapovirus Not Detected (NotDetected); Shiga-like toxin E coli Not Detected (NotDetected); Shigella Enterovasive E coli Not Detected (NotDetected); Vibrio Cholerae Not Detected (NotDetected); Vibrio, PCR Not Detected (NotDetected); Yersinia Entercolitica, PCR Not Detected (NotDetected)
[2024-06-11 20:10] LABS: Norovirus Detected (NotDetected)
[2024-06-14 06:14] LABS: Calprotectin, Fecal 6 ug/g (0-120)
[2024-06-14 15:43] LABS: Pancreatic Elastase, Fecal >800 (>200)
[2024-06-17 23:42] LABS: Lactoferrin, Fecal, Quant. <1.00 ug/mL(g) (0.00-7.24)
== END 2024-06-11 23:59 | disposition home or self-care (01) ==
LOC: LAB 11:17
PROVIDERS: PCP Family Medicine; Visit Provider Internal Medicine Gastroenterology
DX: K52.9 Noninfective gastroenteritis and colitis, unspecified (principal)
CPT/HCPCS: 82656; 83630; 83993; 87506

== ENCOUNTER 2024-08-28 10:02 | Outpatient (CLI) | payer BC, SELFPAY ==
--- NOTE | 2024-08-28 10:03 | US_ITS ---
PROCEDURE: US TRANSVAGINAL CLINICAL INDICATION: Follicle Scan COMPARISON: US US TRANSVAGINAL from 05/15/2024 FINDINGS: Transvaginal sonographic images of the pelvis were obtained. UTERUS: 7.8cm x 5.5 cmx 4.1cm anteverted with a combined endometrial thickness of 14.3mm. The endometrium appears trilaminar. LEFT OVARY: 5.5 cmx4.2cmx3.0cm with a volume of 36ml. Follicle 1. 2.13 cm Follicle 2. 1.25 cm Follicle 3. 1.07 cm Follicle 4. 2.38 cm Follicle 5. 0.89 cm RIGHT OVARY: 4.9 cmx 5.2cmx3.1cm with a volume of 41.7ml. Follicle 1. 2.18 cm Follicle 2. 2.09 cm Follicle 3. 0.86 cm Follicle 4. 0.90 cm Follicle 5. 1.46 cm Follicle 6. 0.79 cm Follicle 7. 0.76 cm Follicle 8. 0.94 cm Follicle 9. 2.50 cm Both ovaries are seen and appear enlarged and multi-cystic. Doppler flow to both ovaries are seen. There is no fluid in the cul-de-sac. IMPRESSION: 1. In anteverted uterus normal in shape and size. The endometrium is thickened and appears trilaminar. 2. Both ovaries are enlarged and contain multiple follicles that are individually measured. 3. No fluid in the cul-de-sac. Dictated by: Satinder Soler MD 08/29/2024 09:02 Satinder Soler MD in OV 08/29/2024 09:02
== END 2024-08-28 23:59 | disposition home or self-care (01) ==
LOC: RAD 10:03
PROVIDERS: PCP Family Medicine; Visit Provider Obstetrics & Gynecology
DX: Z31.9 Encounter for procreative management, unspecified (principal)
CPT/HCPCS: 76830

== ENCOUNTER 2024-09-15 10:58 | Outpatient (CLI) | payer BC, SELFPAY ==
[2024-09-15 12:05] LABS: HCG,Quantitative 1319 mIU/ml (0-5.42)
[2024-09-16 08:25] LABS: Progesterone 44.7 ng/mL (.)
== END 2024-09-15 23:59 | disposition home or self-care (01) ==
PROVIDERS: Visit Provider Obstetrics & Gynecology
DX: N96 Recurrent pregnancy loss (principal)
CPT/HCPCS: 36415; 84144; 84702

== ENCOUNTER 2024-09-17 13:25 | Outpatient (CLI) | payer BC, SELFPAY ==
[2024-09-17 14:45] LABS: HCG,Quantitative 2812 mIU/ml (0-5.42)
== END 2024-09-17 23:59 | disposition home or self-care (01) ==
LOC: LAB 13:26
PROVIDERS: Visit Provider Obstetrics & Gynecology
DX: N92.6 Irregular menstruation, unspecified (principal)
CPT/HCPCS: 36415; 84702

== ENCOUNTER 2024-10-07 15:30 | Outpatient (CLI) | payer BC, SELFPAY ==
[2024-10-09 06:09] LABS: Neisseria gonorrhoeae, NAA Negative (Negative)
== END 2024-10-07 23:59 | disposition home or self-care (01) ==
LOC: LAB.DROPOF 10-08 09:20
PROVIDERS: PCP Obstetrics & Gynecology; Visit Provider Obstetrics & Gynecology
DX: Z34.01 Encounter for supervision of normal first pregnancy, first trimester (principal)
CPT/HCPCS: 87491; 87591

== ENCOUNTER 2024-10-31 14:08 | Outpatient (CLI) | payer BC, SELFPAY ==
[2024-10-31 14:35] LABS: Basophils % 0.5 % (0.1-2.0); Eosinophils # 0.1 K/mm3 (0.0-0.4); Eosinophils % 1.2 % (0.1-12.0); Hematocrit 39.4 % (37.0-47.0); Hemoglobin 13.9 g/dL (12.2-16.2); Lymphocytes # 1.6 K/mm3 (0.7-4.5); Lymphocytes % 18.8 % (10-50); Mean Corpuscular HGB Conc 35.3 g/dL (31.8-35.4); Mean Corpuscular Hemoglobin 30.1 pg (27.0-31.2); Mean Corpuscular Volume 85.3 fl (81-99); Mean Platelet Volume 9.6 fl (7.4-10.4); Monocytes # 0.6 K/mm3 (0.1-1.0); Monocytes % 7.3 % (1.7-9.3); Neutrophils # 6.2 K/mm3 (1.8-7.8); Neutrophils % 71.6 % (37.0-80.0); Platelet Count 277 K/mm3 (142-424); Red Blood Count 4.62 M/mm3 (4.20-5.40); Red Cell Distribution Width 12.8 % (11.5-17.5); White Blood Count 8.7 K/mm3 (4.8-10.8)
[2024-10-31 15:51] LABS: HIV Combo NEGATIVE (Negative)
[2024-10-31 15:57] LABS: Hepatitis C Ab Qual. W/ RFX NEGATIVE (Negative)
[2024-11-01 09:14] LABS: Hepatitis B Surface Antigen Negative (Negative); Rubella Antibodies, IgG <0.90 index (Immune >0.99)
[2024-11-01 10:38] LABS: RPR W/RFX Titers Nonreactive (Nonreactive)
== END 2024-10-31 23:59 | disposition home or self-care (01) ==
LOC: LAB 14:09
PROVIDERS: Visit Provider Obstetrics & Gynecology
DX: Z34.01 Encounter for supervision of normal first pregnancy, first trimester (principal); Z3A.10 10 weeks gestation of pregnancy
CPT/HCPCS: 36415; 85025; 86592; 86762; 86803; 86850; 87340; 87389

== ENCOUNTER 2025-01-06 09:13 | Outpatient (CLI) | payer BC, SELFPAY ==
--- NOTE | 2025-01-06 09:30 | US_ITS ---
PROCEDURE: US OB /MATERNAL DETAIL CLINICAL INDICATION: schedule in 4 weeks; 20 week anatomy scan COMPARISON: US US TRANSVAGINAL from 08/28/2024 FINDINGS: Transabdominal sonographic images of the pelvis were obtained. From her established due date she is 20 weeks 4 days. Single viable intrauterine gestation. Breech position. Placenta: Posteriorplacenta grade 1. There is an average amount of fluid. The cervix appears satisfactory. Closed and measuring 4.46 cm in length. Complete survey performed and was unremarkable on the submitted images as in PACS. No discrete anomalies identified on survey imaging by technologist. Active fetus. Three-vessel cord with satisfactory umbilical cord insertion. 4- chamber heart noted. Situs, aortic arch, LVOT, RVOT, three-vessel view appear normal. There is a small intracardiac echogenic foci within the left ventricle. Survey of brain & ventricles Unremarkable. Cerebellum, thalamus, choroid plexus, cisterna magna appear normal. Face and neck survey unremarkable. Profile, nasion, lips and nose appeared normal. Diaphragm and chest views unremarkable. Abdomen: Both kidneys noted and unremarkable. Stomach and bladder noted and satisfactory. Spine: Survey of the spine satisfactory with no anomalies identified nor imaged. Cervical, thoracic, lower spine appear normal. Both arms and legs noted. Amniotic Fluid: Adequate. MVP 3.13 cm Measurements: Average ultrasound age 20weeks 2days. Estimated due date by ultrasound age 0905/24/2025. Estimated weight 322g BPD = 20weeks 6days HC = 20weeks 4days AC = 20weeks 1day FL = 19weeks 4days 0 Growth Percentile= 15 Heart Rate = 150bpm Cerebellum = 19weeks 3days Humerus = 20weeks 0 days HC/AC is 1.21 FL/BPD is 0.63 FL/AC is 0.21 There appears to be a small empty sac anteriorly that measures 6.36 cm x 0.96 cm. This could represent a vanishing twin. See images 44-50. IMPRESSION: 1. Viable fetus in the breech presentation with a posterior placenta grade 1. 2. The fluid is within normal limits with an MVP 3.13 cm. 3. There is an anterior band noted within the uterus that measures up to 6.6 cm in length. This could represent a 2nd gestational sac and vanishing twin. 4. There is a small intracardiac echogenic foci within the left ventricle. Suggest follow-up at 28 weeks. 5. The rest of the anatomical scan appears normal. 6. biometry is consistent with the dates. Dictated by: Satinder Soler MD 01/06/2025 11:08 Satinder Soler MD in OV 01/06/2025 11:08
== END 2025-01-06 23:59 | disposition home or self-care (01) ==
LOC: RAD 09:14
PROVIDERS: PCP Obstetrics & Gynecology; Visit Provider Obstetrics & Gynecology
DX: O99.322 Drug use complicating pregnancy, second trimester (principal); Z87.59 Personal history of other complications of pregnancy, childbirth and the puerperium; Z3A.20 20 weeks gestation of pregnancy
CPT/HCPCS: 76811

== ENCOUNTER 2025-02-16 07:22 | Outpatient (CLI) | payer BC, SELFPAY ==
--- OUTSIDE RECORDS SUMMARY | 2024-04-10 11:15 | XMS_ITS ---
Author Organization [facility] Address [address] [phone] Care Team Providers Care Molded Rubber Goods Cutter Name Role Phone Rob Meade Primary Care Provider Marilynn Tanya Unavailable [phone] Allergies No Known Allergies Results Component Value [...] 0.43 Performing Lab: Notes/Report: Test performed by [employer], [employer] [facility] , [address], [place] [address] Roberto Carlos Scott MD, Nib Adjuster CLIA: [id number] Sodium 133 135-145 mmol/L Potassium 4.0 3.5-5.3 [...] 04/10/2024 Encounters Encounter Location Date Provider Diagnosis [facility] [address] [place], [place] [id number] 04/10/2024 Tanya Subramanian Intractable nausea a nd [...] * Tevin BARBOURinDOB:[birth year] (24 yo F)Acc No.[id number]:04/10/2024 Progress Notes Patient: Olesya DIAZHENRY Herlinda Provider: EDMUNDO Gan :2000 A ge:23 Y S ex:Female Date:04/10/2024 Address:[facility] [address], [id number] Pcp:Rob Meade Subjective: * Chief Complaints: * [...] G astroenterology: General Appearance: p leasant, NAD. Oral cavity: n ormal. Sclera: a nicteric. Heart sounds: r egular, normal S1 S2, no murmurs. Lungs: c lear, no rales or wheezes. Abdomen: BS present, soft, nontender, no guarding or [...] , Provider reviewed results while patient in office.JavonTanya lopez Olesya 04/10/2024 4:21:15 PM > Notes: Likely [...] Procedure Codes: 3 6416 CAPILLARY BLOOD DRAW, 80496 CBC WITH AUTO DIFF * Follow Up: v ia phone to report test results * Billing Information: * Visit Code: 05936 Office Visit, Est Pt., Level 3. * Procedure Codes: 49552 CAPILLARY BLOOD DRAW. 97319 CBC WITH AUTO DIFF. * Electronic signature of EDMUNDO Rashid on 02/16/2025 at 07:28 AM EDT Sign off status: Pending * Provider: EDMUNDO Gan Date: 0 04/10/2024 Generated for Elias smith/Andre/eTransmitting on: 0 02/16/2025 07:28 AM EDT History and Physical Notes * [...]
--- OUTSIDE RECORDS SUMMARY | 2024-05-08 12:30 | XMS_ITS ---
Author Organization Dian Address [address] [phone] Care Team Providers Care Vehicle Service Agent Name Role Phone Rob Meade Primary Care Provider [phone] Tanya Subramanian [phone] Allergies No Known Allergies Results Component Value Reference Range Notes TEN-stool panel Reviewed date:05/14/2024 09:49:30 AM Interpretation:Abnormal Performing Lab: Notes/Report: Abnormal REASON FOR VISIT stool sample Vital Signs Height 68 in 05/08/2024 Weight 000 lbs 05/08/2024 Encounters Encounter Location Date Provider Diagnosis Rachel 1210 [facility] [address] [id number] 05/08/2024 Tanya Subramanian Diarrhea R19.7 Assessments Encounter Date Diagnosis (ICD Code) Assessment Notes Treatment Notes Treatment Clinical Notes Section Notes 05/08/2024 Diarrhea (ICD-10 - R19.7) Plan Of Treatment No Information Progress Notes * Tevin BARBOURinDOB:[birth year] (24 yo F)Acc No.[id number]:05/08/2024 Patient: Spencer RANGELHerlinda Provider: EDMUNDO Gan :2000 A ge:23 Y S ex:Female Date:05/08/2024 Address:[address] [place] [phone] Pcp:Rob Meade Subjective: * Chief Complaints: * 1 . Stool sample. * Medical History: M edical History Verified. * Allergies: N .K.D.A. Objective: * Vitals: W t:000, Temp:000, BP:000, Nurse:CARLOS, Ht: 68. Assessment: * Assessment: 1. D iarrhea - R19.7 Plan: * Treatment: * Billing Information: * Visit Code: * Procedure Codes: * Electronic signature of EDMUNDO Rashid on 02/16/2025 at 07:27 AM EDT Sign off status: Pending * Provider: EDMUNDO Gan Date: 0 05/08/2024 Generated for Elias smith/Andre/eTransmitting on: 0 02/16/2025 07:27 AM EDT
--- OUTSIDE RECORDS SUMMARY | 2024-05-28 11:40 | XMS_ITS ---
Author Organization [facility] Address [address] [place] [phone] Care Team Providers Care Cold Storage Supervisor Name Role Phone Rob Meade Primary Care Provider [phone] Tanya Subramanian [phone] REASON FOR VISIT stool sample Encounters Encounter Location Date Provider Diagnosis [facility] [address] [place] [address] [place] [phone] 05/28/2024 Tanya Subramanian Plan Of Treatment No Information Progress Notes * Tevin BARBOURinDOB:[birth year] (24 yo F)Acc No.[id number]:05/28/2024 Patient: Herlinda CHACON Provider: EDMUNDO Gan :2000 A ge:23 Y S ex:Female Date:05/28/2024 Address:[address] [place], [place] [phone] Pcp:Rob Meade Subjective: * Chief Complaints: * 1 . Stool sample. * Medical History: Objective: * Vitals: Assessment: Plan: * Treatment: * Billing Information: * Visit Code: * Procedure Codes: * Electronic signature of EDMUNDO Rashid on 02/16/2025 at 07:26 AM EDT Sign off status: Pending * Provider: EDMUNDO Gan Date: 1 Generated for Elias smith/Andre/Princessitting on: 0 02/16/2025 07:26 AM EDT
--- OUTSIDE RECORDS SUMMARY | 2025-02-16 07:29 | XMS_ITS | Clinical Summary ---
Author Organization [facility] Address [address] [place] [address] Care Team Providers Care Tea Blender Name Role Phone Ronald Issa MD Primary Care Provider Symone Michaels DO Unavailable Allergies No known active allergies Medications Vit-Fe Fumarate-FA ( VITAMIN PO) Take by mouth 1 (one) time each day. Active Ferrous Sulfate Dried (FERROUS SULFATE CR PO) Take by mouth. Active acetaminophen (Tylenol) 325 MG tablet Take 2 tablets (650 mg) by mouth every 6 (six) hours if needed for pain. 100 tablet 06/18/2024 Active ibuprofen 600 MG tablet Take 1 tablet (600 mg) by mouth every 6 (six) hours if needed for mild pain. 60 tablet 06/18/2024 Active Active Problems Problem Noted Date Diagnosed Date Endometrial mass 06/05/2024 Immunizations Immunization Administration Dates Next Due Hep A, ped/adol, 2 dose 01/14/2019,03/16/2018 Influenza, injectable, quadrivalent, preservativ e free 11/11/2016 Meningococcal MCV4P 03/16/2018 Family History Medical History Relation Name Comments Diabetes Maternal Grandfather Prostate cancer Maternal Grandfather Heart disease Maternal Grandmother Relation Name Status Comments Maternal Grandfather Maternal Grandmother Social History Tobacco Use Types Packs/Day Years Used Date Smoking Tobacco: Never Passive Smoke Exposure: Never Smokeless Tobacco: Never Tobacco Cessation:Counseling Given: Not Answered Alcohol Use Standard Drinks/Week Comments Never 0 (1 standard drink = 0.6 oz pur e alcohol) PHQ-2 Answer Date Recorded Patient Health Questionnaire-2 Score 4 07/17/2024 PHQ-9 Answer Date Recorded Patient Health Questionnaire-9 Score 8 07/17/2024 Comments No Sex and Gender Information Value Date Recorded Sex Assigned at Not on file Legal Sex Female 8:01 PM EDT Gender Identity Not on file Sexual Orientation Not on file Last Filed Vital Signs Vital Sign Reading Time Taken Comments Blood Pressure 116/76 07/17/2024 11:43 AM EST Pulse 76 07/17/2024 11:43 AM EST Temperature 36.7 C (98 F) 07/17/2024 11:43 AM EST Respiratory Rate 14 07/17/2024 11:4 3 AM EST Oxygen Saturation 99% 07/17/2024 11: 43 AM EST Inhaled Oxygen Concentration - - Weight 61.1 kg (134 lb 11.2 oz) 024 11:43 AM EST Height 170.2 cm (5' 7 ) 07/17/2024 11:4 3 AM EST Body Mass Index 21.1 07/17/2024 11:43 AM EST Plan of Treatment Health Maintenance Due Date Last Done Comments [facility]-HIV Screening 2001 [facility]-Hepatitis C Screening 2001 [facility]-Infant/Child/Adol SDOH Screenings 2001 [facility]-Varicella Vaccines (1 of 2 - 13+ 2-dose series) 2014 HPV Vaccines (1 - 3-dose series) 2016 [facility]- SDOH Screenings 10/31/2019 [facility]-Adult SDOH Screenings 10/31/2019 [facility]-DTaP,Tdap,and Td Vaccines (1 - Tdap) 2020 [facility]-Hepatitis B Vaccines (1 of 3 - 19+ 3-dose series) 2020 [facility]-Pap Smear 2022 [id number] Vaccine ( - season) 2024 [facility]-Influenza Vaccine (Season Ended) 2025 11/11/2016 [facility]-Depression Screening 07/17/2025 024, 07/17/2024 [facility]-Zoster Vaccines (1 of 2) 10/31/2051 [facility]-Hepatitis A Vaccines Completed 019, 03/16/2018 [facility]-HIB Vaccines Aged Out No longer e ligible based on patient's age to complete this topic [facility]-IPV Vaccines Aged Out No longer e ligible based on patient's age to complete this topic [facility]-Pneumococcal Vaccine: Pediatrics (0 to 5 Years) and At-Risk Patients (6 to 49 Years) Aged Out No longer eligible b ased on patient's age to complete this topic [facility]-Rotavirus Vaccines Aged Out No lo nger eligible based on patient's age to complete this topic Insurance ANTH Care Teams Tea Blender Relationship Specialty Start Date End Date Ronald Issa MD [address] [place] [address] PCP - General 01/07/21 Symone Michaels DO [address] [place] [place] [address] Referring Physician Obstetrics and Gynecology 05/29/24
--- OUTSIDE RECORDS SUMMARY | 2025-02-16 07:29 | XMS_ITS | Encounter Summary ---
Author Organization [facility] Address [address] [place] [address] Care Team Providers Care Historiographer Name Role Phone Ronald Issa MD Primary Care Provider [phone] Symone Michaels DO Unavailable [phone] Encounter Details Date Type Department Care Team ([facility] st Contact Info) Description 05/15/2024 Orders Only External Location [address] [place] [phone] Provider, External Social History Tobacco Use Types Packs/Day Years Used Date Smoking Tobacco: Never Assessed Comments Unknown Sex and Gender Information Value Date Recorded Sex Assigned at Not on file Legal Sex Female 8:01 PM EDT Gender Identity Not on file Sexual Orientation Not on file documented as of this encounter Plan of Treatment Not on file documented as of this encounter Procedures Procedure Name Priority Date/Time Associated Diagnosis Comments US OUTSIDE IMAGES 05/15/2024 7:37 AM EDT documented in this encounter Results * US OUTSIDE IMAGES (05/15/2024 7:37 AM EDT) Anatomical Region Laterality Modality Ultrasound 05/15/2024 7:37 AM EDT us External Provider IMG US PROCEDURES Final Result documented in this encounter Visit Diagnoses Not on filedocumented in this encounter Care Teams Historiographer Relationship Specialty Start Date End Date Ronald Issa MD [address] [place] [address] PCP - General 01/07/21 Symone Michaels DO [address] [place] [place] [address] Referring Physician Obstetrics and Gynecology 05/29/24 documented as of this encounter
[2025-02-16 09:11] LABS: Basophils % 0.4 % (0.1-2.0); Eosinophils # 0.1 Kmm3 (0.0-0.4); Eosinophils % 1.3 % (0.1-12.0); Hematocrit 31.8 % (37.0-47.0); Hemoglobin 10.7 g/dL (12.2-16.2); Immature Granulocytes % 1.3 %; Lymphocytes # 1.2 K/mm3 (0.7-4.5); Mean Corpuscular HGB Conc 33.6 g/dL (31.8-35.4); Mean Corpuscular Hemoglobin 29.5 pg (27.0-31.2); Mean Corpuscular Volume 87.6 fl (81-99); Mean Platelet Volume 10.7 fl (7.4-10.4); Monocytes # 0.9 K/mm3 (0.1-1.0); Monocytes % 11.7 % (1.7-9.3); Neutrophils # 5.4 K/mm3 (1.8-7.8); Neutrophils % 70.3 % (37.0-80.0); Nucleated Red Blood Cells # 0 10^3/uL; Nucleated Red Blood Cells % 0 %; Platelet Count 183 K/mm3 (142-424); Red Blood Count 3.63 M/mm3 (4.20-5.40); Red Cell Distribution Width-SD 38.6 fL; White Blood Count 7.7 K/mm3 (4.8-10.8)
[2025-02-16 09:20] LABS: Glucose 1 Hour 71 mg/dL (74-100)
[2025-02-16 19:24] LABS: RPR W/RFX Titers Nonreactive (Nonreactive)
== END 2025-02-16 23:59 | disposition home or self-care (01) ==
LOC: LAB 07:23
PROVIDERS: Visit Provider Obstetrics & Gynecology
DX: Z34.82 Encounter for supervision of other normal pregnancy, second trimester (principal); Z3A.00 Weeks of gestation of pregnancy not specified
CPT/HCPCS: 36415; 82947; 85025; 86592

== ENCOUNTER 2025-03-04 07:46 | Outpatient (CLI) | payer BC, SELFPAY ==
--- OUTSIDE RECORDS SUMMARY | 2024-04-10 11:15 | XMS_ITS ---
Author Organization [facility] Address [address] [id number] Care Team Providers Care Citrix Administrator Name Role Phone Rob Meade Primary Care Provider Marilynn Tanya Unavailable [phone] Allergies No Known Allergies Results Component Value Reference Range Notes CBC Fingerstick (in house) Reviewed date:04/10/2024 04:21:17 PM Interpretation: Performing Lab: Notes/Report: wbc 8.8 3.5 - 10 lym 19.0% 15 - 50 mid 5.6% 2 - 15 gran 75.4% 35 - 80 rbc 4.41 3.5 - 5.5 hgb 13.5 11.5 - 16.5 hct 39.8 35 - 55 mcv 90.3 75 - 100 mch 30.7 25 - 35 mchc 33.9 31 - 38 plat 165 100 - 400 P-Basic Metabolic Panel (BMP ) Reviewed date:04/11/2024 09:08:51 AM Interpretation:Na 133, Cr 0.43 Performing Lab: Notes/Report: Test performed by [employer], [facility] , [address], [place] [address] Roberto Carlos Scott MD, Conservation Worker CLIA: [id number] Sodium 133 135-145 mmol/L Potassium 4.0 3.5-5.3 mmol/L Chloride 103 97-108 mmol/L CO2 22 22-32 mmol/L Glucose 88 65-99 mg/dL BUN 8 6-20 mg/dL Creatinine 0.43 0.50-1.00 mg/dL Calcium 9.3 8.6-10.4 mg/dL eGFR by Creatinine 141 >59 mL/min/1.73m2 REASON FOR VISIT check up Vital Signs Blood pressure systolic 100 mm Hg 04/10/20 24 Blood pressure diastolic 68 mm Hg 024 Heart Rate 76 /min 04/10/2024 Height 68 in 04/10/2024 Weight 117 lbs 04/10/2024 BMI 17.79 kg/m2 04/10/2024 Encounters Encounter Location Date Provider Diagnosis [facility] [address] [place], [place] [id number] 04/10/2024 Tanya Subramanian Intractable nausea a nd vomiting R11.2 ; First trimester Z34.91 ; Hypokalemia E87.6 and Chronic diarrhea K52.9 Assessments Encounter Date Diagnosis (ICD Code) Assessment Notes Treatment Notes Treatment Clinical Notes Section Notes 04/10/2024 Intractable nausea and vomiting (ICD-10 - R11.2) Likely due to but since she is still having diarrhea off and on and has a history of C. Diff, will check another stool panel. Can speak with OBGYN about a different nausea medication as the phenergan makes her sleep. 04/10/2024 First trimester (ICD-10 - Z34.91) 04/10/2024 Hypokalemia (ICD-10 - E87.6) 04/10/2024 Chronic diarrhea (ICD-10 - K52.9) Will get as stool panel. Plan Of Treatment Treatment Notes Assessment Notes Intractable nausea and vomiting Likely d ue to but since she is still having diarrhea off and on and has a history of C. Diff, will check another stool panel. Can speak with OBGYN about a different nausea medication as the phenergan makes her sleep. Chronic diarrhea Will get as stool pa jose de jesus. Next Appt Details Follow Up: via phone to repo rt test results, Reason: Progress Notes * Tevin BARBOURinDOB:[birth year] (24 yo F)Acc No.[id number]:04/10/2024 Progress Notes Patient: Olesya DIAZHENRY Herlinda Provider: EDMUNDO Gan :2000 A ge:23 Y S ex:Female Date:04/10/2024 Address:[facility] [address], [id number] Pcp:Rob Meade Subjective: * Chief Complaints: * 1 . Check up. * HPI: G astroenterology: 23 year old female presents with c/o Vomiting P t complains of nausea and vomiting for a while. States that she did have C-Diff in August has not felt right since then. Pt states that she has to force herself to eat because she does not have an appetite. Pt has had a small amount of diarrhea. Pt states she is 9 weeks with triplets so she is not sure if that is what is causing her current symptoms. She was in the ER on Sunday with some vaginal bleeding and had low potassium. She was given a dose of potassium and has a f/u with Dr. Michaels next week.. * ROS: D ERMATOLOGY: no R jose. n o [...] status: never smoked. Alcohol: No. * Medications: N one * Allergies: N .K.D.A. Objective: * Vitals: W t:117, Temp:98.0, BP:100/68, HR:76, Nurse:abad, Ht: 68, BMI:17.79. * Examination: G astroenterology: General Appearance: p leasant, NAD. O ral cavity: n ormal. S clera: a nicteric. H eart sounds: r egular, normal S1 S2, no murmurs. L ungs: c lear, no rales or wheezes. A bdomen: BS present, soft, nontender, no guarding or rigidity, no masses felt. Assessment: * Assessment: 1. I ntractable nausea and vomiting - R11.2 (Primary) 2 . F irst trimester - Z34.91 3 . H ypokalemia - E87.6 4 . C hronic diarrhea - K52.9 Plan: * Treatment: Value Reference Range w bc 8.8 3.5 - 10 * l ym 19.0% 15 - 50 * m id 5.6% 2 - 15 * g ran 75.4% 35 - 80 * r bc 4.41 3.5 - 5.5 * h gb 13.5 11.5 - 16.5 * h ct 39.8 35 - 55 * m cv 90.3 75 - 100 * m ch 30.7 25 - 35 * m chc 33.9 31 - 38 * p lat 165 100 - 400 * Hilary Coronel 04/10/2024 3:28:12 PM > , Provider reviewed results while patient in office.Tanya Subramanian Olesya 04/10/2024 4:21:15 PM > Notes: Likely due to but since she is still having diarrhea off and on and has a history of C. Diff, will check another stool panel. Can speak with OBGYN about a different nausea medicationas the phenergan makes her sleep.?? 2.?Hypokalemia?LAB: P-Basic Metabolic Panel (BMP) (Collection Date & Time - 04/10/2024 03:25 PM)?Na 133, Cr 0.43* Value Reference Range B UN 8 6-20 - mg/dL * C alcium 9.3 8.6-10.4 - mg/dL * C hloride 103 97-108 - mmol/L * C O2 22 22-32 - mmol/L * C reatinine 0.43 L 0.50-1.00 - mg/dL * G lucose 88 65-99 - mg/dL * P otassium 4.0 3.5-5.3 - mmol/L * S odium 133 L 135-145 - mmol/L * e GFR by Creatinine 141 >59 - mL/min/1.73m2 * Tanya Subramanian 04/11/2024 9: 08:48 AM > see TE 3.?Chronic diarrhea? Notes: Will get as stool panel.?? * Procedure Codes: 3 6416 CAPILLARY BLOOD DRAW, 31366 CBC WITH AUTO DIFF * Follow Up: v ia phone to report test results * Images: Billing Information: * Visit Code: 98590 Office Visit, Est Pt., Level 3. * Procedure Codes: 18054 CAPILLARY BLOOD DRAW. 09306 CBC WITH AUTO DIFF. * Electronic signature of EDMUNDO Rashid on 03/04/2025 at 07:48 AM EDT Sign off status: Pending * Provider: EDMUNDO Gan Date: 0 04/10/2024 Generated for Elias smith/Andre/eTransmitting on: 0 03/04/2025 07:48 AM EDT History and Physical Notes * HPI (History of Present Illness) Category Sub-Category Detail Notes Category Not es Gastroenterology Vomiting Pt complains of nausea and vomiting for a while. States that she did have C-Diff in August has not felt right since then. Pt states that she has to force herself to eat because she does not have an appetite. Pt has had a small amount of diarrhea. Pt states she is 9 weeks with triplets so she is not sure if that is what is causing her current symptoms. She was in the ER on Sunday with some vaginal bleeding and had low potassium. She was given a dose of potassium and has a f/u with Dr. Michaels next week. Examination Category Sub-Category Detail Notes Category Not es Gastroenterology Oral cavity: normal Sclera: anicteric Heart sounds: regular, normal S1 S 2, no murmurs Lungs: clear, no rales or w heezes Abdomen: BS present, soft, no ntender, no guarding or rigidity, no masses felt General Appearance: pleasant, NAD
--- OUTSIDE RECORDS SUMMARY | 2024-05-08 12:30 | XMS_ITS ---
Author Organization Dian Address [address] [phone] Care Team Providers Care Marketing Instructor Name Role Phone Rob Meade Primary Care Provider Tanya Subramanian [phone] Allergies No Known Allergies Results Component Value Reference Range Notes TEN-stool panel Reviewed date:05/14/2024 09:49:30 AM Interpretation:Abnormal Performing Lab: Notes/Report: Abnormal REASON FOR VISIT stool sample Vital Signs Height 68 in 05/08/2024 Weight 000 lbs 05/08/2024 Encounters Encounter Location Date Provider Diagnosis Rachel 1210 [facility] [address] [phone] 05/08/2024 Tanya Subramanian Diarrhea R19.7 Assessments Encounter Date Diagnosis (ICD Code) Assessment Notes Treatment Notes Treatment Clinical Notes Section Notes 05/08/2024 Diarrhea (ICD-10 - R19.7) Plan Of Treatment No Information Progress Notes * Tevin BARBOURinDOB:[birth year] (24 yo F)Acc No.[id number]:05/08/2024 Patient: Spencer RANGEL Herlinda Provider: EDMUNDO Gan :2000 A ge:23 Y S ex:Female Date:05/08/2024 Address:[address] [place] [phone] Pcp:Rob Meade Subjective: * Chief Complaints: * 1 . Stool sample. * Medical History: M edical History Verified. * Allergies: N .K.D.A. Objective: * Vitals: W t:000, Temp:000, BP:000, Nurse:CARLOS, Ht: 68. Assessment: * Assessment[facility]. [facility] Plan: * Treatment: * Images: Billing Information: * Visit Code: * Procedure Codes: * Electronic signature of EDMUNDO Rashid on 03/04/2025 at 07:48 AM EDT Sign off status: Pending * Provider: EDMUNDO Gan Date: 0 05/08/2024 Generated for Elias smith/Andre/Elda on: 0 03/04/2025 07:48 AM EDT
--- OUTSIDE RECORDS SUMMARY | 2024-05-28 11:40 | XMS_ITS ---
Author Organization [facility] Address [address] [place] [phone] Care Team Providers Care Manager Search Engine Name Role Phone Rob Meade Primary Care Provider [phone] Tanya Subramanian [phone] REASON FOR VISIT stool sample Encounters Encounter Location Date Provider Diagnosis [facility] [address] [place] [address] [place] [phone] 05/28/2024 Tanya Subramanian Plan Of Treatment No Information Progress Notes * Tevin BARBOURinDOB:[birth year] (24 yo F)Acc No.[id number]:05/28/2024 Patient: Herlinda CHACON Provider: EDMUNDO Gan :2000 A ge:23 Y S ex:Female Date:05/28/2024 Address:[address] [place] [id number] Pcp:Rob Meade Subjective: * Chief Complaints: * 1 . Stool sample. * Medical History: Objective: * Vitals: Assessment: Plan: * Treatment: * Images: Billing Information: * Visit Code: * Procedure Codes: * Electronic signature of EDMUNDO Rashid on 03/04/2025 at 07:48 AM EDT Sign off status: Pending * Provider: EDMUNDO Gan Date: 1 Generated for Elias smith/Andre/Princessitting on: 0 03/04/2025 07:48 AM EDT
--- OUTSIDE RECORDS SUMMARY | 2025-03-04 07:48 | XMS_ITS | Encounter Summary ---
Author Organization [facility] Address [address] [place] [address] Care Team Providers Care Patrol Police Lieutenant Name Role Phone Ronald Issa MD Primary Care Provider [phone] Symone Michaels DO Unavailable [phone] Encounter Details Date Type Department Care Team ([facility] st Contact Info) Description 05/15/2024 Orders Only External Location [address] [place] [phone] Provider, External Social History Tobacco Use Types [...] on filedocumented in this encounter Care Teams Patrol Police Lieutenant Relationship Specialty Start Date End Date Ronald Issa MD [address] [place] [address] PCP - General 01/07/21 Symone Michaels DO [address] [place] [place] [address] Referring Physician Obstetrics and Gynecology 05/29/24 documented as of this encounter
--- OUTSIDE RECORDS SUMMARY | 2025-03-04 07:48 | XMS_ITS | Clinical Summary ---
Author Organization [facility] Address [address] [place] [address] Care Team Providers Care Pumper Gauger Apprentice Name Role Phone Ronald Issa MD Primary Care Provider [phone] Symone Michaels DO Unavailable [phone] Allergies No known active allergies Medications Vit-Fe [...] [facility]-HIV Screening 2001 [facility]-Hepatitis C Screening 2001 [facility]-/Child/Adol SDOH Screenings 2001 [facility]-Varicella Vaccines (1 of 2 - 13+ 2-dose series) 2014 HPV Vaccines (1 - 3-dose series) 2016 [facility]- SDOH Screenings 10/31/2019 [facility]-Adult SDOH Screenings 10/31/2019 [facility]-DTaP,Tdap,and Td Vaccines (1 - Tdap) 2020 [facility]-Hepatitis B Vaccines (1 of 3 - 19+ 3-dose series) 2020 [facility]-Pap Smear 2022 [id number] Vaccine (1 - season) 2024 [facility]-Influenza Vaccine (#1) 2025 11/11/2016 [facility]-Depression Screening 07/17/2025 024, 07/17/2024 [...] complete this topic Insurance ANTH Care Teams Pumper Gauger Apprentice Relationship Specialty Start Date End Date Ronald Issa MD [address] [place] [address] PCP - General 01/07/21 Symone Michaels DO [address] [place] [place] [address] Referring Physician Obstetrics and Gynecology 05/29/24
--- OUTSIDE RECORDS SUMMARY | 2025-03-04 07:48 | XMS_ITS | Patient Health Record ---
Author Organization [facility] Address [address] [id number] Care Team Providers Care Information Scientist Name Role Phone Rob Meade Primary Care Provider [phone] Kaila Weber Unavailable [phone] Tanya Subramanian Unavailable [phone] Allergies No Known Allergies Results Component Value Reference Range Notes TEN-stool panel Reviewed date:04/16/2024 11:19:49 AM Interpretation:Abnormal Performing Lab: Notes/Report: Abnormal TEN-stool panel Reviewed date:05/14/2024 09:49:30 AM Interpretation:Abnormal Performing Lab: Notes/Report: Abnormal P-Basic Metabolic Panel (BMP ) Reviewed date:04/11/2024 09:08:51 AM Interpretation:Na 133, Cr 0.43 Performing Lab: Notes/Report: Test performed by [facility] , [place] [address] Roberto Carlos Scott MD, Shank Archer CLIA: [id number] Sodium 133 135-145 mmol/L Potassium 4.0 3.5-5.3 mmol/L Chloride 103 97-108 mmol/L CO2 22 22-32 mmol/L Glucose 88 65-99 mg/dL BUN 8 6-20 mg/dL Creatinine 0.43 0.50-1.00 mg/dL Calcium 9.3 8.6-10.4 mg/dL eGFR by Creatinine 141 >59 mL/min/1.73m2 CBC Fingerstick (in house) Reviewed date:04/10/2024 04:21:17 [...] - 38 plat 165 100 - 400 TEN-stool panel Reviewed date:06/04/2024 02:02:44 PM Interpretation:Abnormal Performing Lab: Notes/Report: Abnormal Reason For Referral No Information Medications Medication SIG (Take, Route, Frequency, Duration) Notes Start Date End Date Status metroNIDAZOLE 500 MG 1 tablet Orally Thr ee times a day; Duration: 10 day(s) 04/18/2024 Active Vancomycin HCl 125 MG 1 capsule Orally F our times a day; Duration: 10 day(s) 05/14/2024 Active Bactrim DS 800-160 MG 1 tablet Orally Tw o times a day; Duration: 10 day(s) 04/18/2024 Active Doxycycline Monohydrate 100 MG 1 capsule Orally Twice a day; Duration: 10 day(s) 05/14/2024 Active Ondansetron 4 MG 1 tablet on the tong ue and allow to dissolve Orally every 6 hr prn 04/21/2024 Active Immunizations Vaccine Route Administration Date Status Comme nts Fluzone PF Quad (6-35 months) Unknown 11/11/2016 Administered Hep A- Pediatric IM Intramuscular 03/16/2018 Administered Hep A- Pediatric IM Intramuscular 01/14/2019 Administered Menactra IM Intramuscular 03/16/2018 Administered Problems Problem Type SNOMED Code ICD Code Onset Dates Problem Status W/U Status Risk Notes Problem Gastroesophageal reflux disease (124465150) GERD (gastroesophag eal reflux disease) (K21.9) Active confirmed Problem Mixed anxiety and depressive disorder (886237762) Depression with anxiety (F41.8) Active confirmed Problem Migraine without aura (55526574) Migraine without aura and with status migrainosus, not intractable (G43.001) Active confirmed Vital Signs Heart Rate 76 /min 04/10/2024 Blood pressure diastolic 68 mm Hg 04/10/2024 Height 68 in 05/08/2024 Blood pressure systolic 100 mm Hg 04/10/2024 Weight 000 lbs 05/08/2024 BMI 17.79 kg/m2 04/10/2024 Encounters Encounter Location Date Provider Diagnosis [facility] [address] [place], [place] [id number] 03/20/2024 Tanya Marilynn COVID-19 U07.1 [facility] [address] [place], [place] [id number] 04/10/2024 Tanya Marilynn Intractable nausea a nd vomiting R11.2 ; First trimester Z34.91 ; Hypokalemia E87.6 and Chronic diarrhea K52.9 [facility] [address] [place], [place] [id number] 05/08/2024 Tanya Javondy Diarrhea R19.7 [facility] [address] [place], [place] [id number] 05/28/2024 Tanya Crowdy [facility] [address] [place], [place] [id number] 03/19/2024 Tanya Crowdy [facility] [address] [place], [place] [id number] 04/11/2024 Tanya Crowdy [facility] [address] [place] [id number] 04/15/2024 Tanya Crowdy [facility] [address] [place] [id number] 04/21/2024 Kaila Weber [facility] [address] [place], [place] [id number] 05/14/2024 Tanya Crowdy [facility] [address] [place], [place] [id number] 06/04/2024 Tanya Subramanian Assessments Encounter Date Diagnosis (ICD Code) Assessment [...] sleep. 04/10/2024 First trimester (ICD-10 - Z34.91) 03/20/2024 COVID-19 (ICD-10 - U07.1) Discussed conservative measures at this time. Very strict return to work precautions given. Reviewed isolation precautions with patient. Will remain off work through Sunday. 05/08/2024 Diarrhea (ICD-10 - R19.7) 04/10/2024 Hypokalemia (ICD-10 - E87.6) 04/10/2024 Chronic diarrhea (ICD-10 - K52.9) Will get as stool panel. 03/20/2024 Other Plan Of Treatment No Information Insurance Providers Payer Name Payer Address Payer Phone Subscriber Number Group Number Insured Name Patient Relationship to Insured Coverage Start Date Coverage End Date [facility] [address] [place] [address] [id number] Radha Jason Child - Insured has Financial Responsibility Medical (General) History Surgical History Surgery Date(Month/Year) T&A 2005 Bilateral lazy eye 2006 [facility] 01/2022 Hospitalization History Reason Date(Month/Year) michelle moeller 12/2016
--- NOTE | 2025-03-04 08:00 | US_ITS ---
PROCEDURE: US OB FOLLOW UP CLINICAL INDICATION: EIF COMPARISON: US US TRANSVAGINAL from 08/28/2024 US US OB /MATERNAL DETAIL from 01/06/2025 FINDINGS: Transabdominal sonographic images of the pelvis were obtained. The following parameters are obtained: From her established due date she is 28weeks 5days Viable fetus in the cephalic presentation with a posterior placenta grade 1. The cervix measures 3.3 cm heart rate: 139bpm bpm. Average ultrasound age 29 weeks 3 days Estimated weight 1,290 grams, 2 lb 14 oz BPD: 30weeks 2days, 84 percentile HC: 30weeks 1day, 57 percent AC: 29weeks 2days, 58 percentile FL: 27weeks 5days, 11 percentile HC/AC: 1.1 FL/BPD: 0.69 FL/AC: 0.21 Growth percentile: 41 Amniotic fluid index: 9.81cm, MVP 2.96 cm SD ratio normal 3.0-3.74. No obvious anomalies evident. Stomach, bladder, kidneys, three-vessel cord, four chamber heart appear normal. There continues to be a small intracardiac echogenic foci in the left ventricle. IMPRESSION: 1. Viable fetus in the cephalic presentation with a posterior placenta grade 1. 2. The fluid is within normal limits with an amniotic fluid index 9.81 cm, MVP 2.96 cm. 3. SD ratio normal 3.0-3.74. 4. There has been good interval growth with the fetus currently 41st percentile. 5. Limited anatomical scan appears normal. 6. There continues to be a small intracardiac echogenic foci within the left ventricle. Suggest repeat scan at 36 weeks. Dictated by: Satinder Soler MD 03/04/2025 13:46 Satinder Soler MD in [facility] 03/04/2025 13:46
== END 2025-03-04 23:59 | disposition home or self-care (01) ==
LOC: RAD 07:47
PROVIDERS: PCP Obstetrics & Gynecology; Visit Provider Obstetrics & Gynecology
DX: O28.3 Abnormal ultrasonic finding on antenatal screening of mother (principal); Z36.2 Encounter for other antenatal screening follow-up; Z3A.28 28 weeks gestation of pregnancy
CPT/HCPCS: 76816; 76820

== ENCOUNTER 2025-04-03 11:32 | Outpatient (CLI) | payer BC, SELFPAY ==
--- OUTSIDE RECORDS SUMMARY | 2024-05-08 12:30 | XMS_ITS ---
Author Organization Dian Address [address] [phone] Care Team Providers Care Die Designer Apprentice Name Role Phone Rob Meade Primary Care Provider Tanya Subramanian [phone] Allergies No Known Allergies Results Component Value Reference Range Notes TEN-stool panel Reviewed date:05/14/2024 09:49:30 AM Interpretation:Abnormal Performing Lab: Notes/Report: Abnormal REASON FOR VISIT stool sample Vital Signs Height 68 in 05/08/2024 Weight 000 lbs 05/08/2024 Encounters Encounter Location Date Provider Diagnosis Rachel 1210 [facility] [address] [phone] 05/08/2024 Tanya Subramanian Diarrhea R19.7 Assessments Encounter Date Diagnosis (ICD Code) Assessment Notes Treatment Notes Treatment Clinical Notes Section Notes 05/08/2024 Diarrhea (ICD-10 - R19.7) Plan Of Treatment No Information Progress Notes * Tevin BARBOURinDOB:[birth year] (24 yo F)Acc No.[id number]:05/08/2024 Patient: Spencer RANGEL Herlinda Provider: EDMUNDO Gan :2000 A ge:23 Y S ex:Female Date:05/08/2024 Address:[address] [place] [phone] Pcp:Rob Meade Subjective: * Chief Complaints: * 1 . Stool sample. * Medical History: M edical History Verified. * Allergies: N .K.D.A. Objective: * Vitals: W t:000, Temp:000, BP:000, Nurse:CARLOS, Ht: 68. Assessment: * [facility]. [facility] Plan: * Treatment: * Images: Billing Information: * Visit Code: * Procedure Codes: * Electronic signature of EDMUNDO Rashid on 04/06/2025 at 12:13 PM EDT Sign off status: Pending * Provider: EDMUNDO Gan Date: 0 05/08/2024 Generated for Elias smith/Andre/Elda on: 0 04/06/2025 12:13 PM EDT
--- OUTSIDE RECORDS SUMMARY | 2025-04-06 12:12 | XMS_ITS | Clinical Summary ---
Author Organization [facility] Address [address] [place] [address] Care Team Providers Care Early Childhood Coordinator Name Role Phone Zach Wang MD Primary Care Provider [phone] Allergies No known active allergies Medications Vit-Fe Fumarate-FA ( -) 27-1 MG tablet tablet Take 1 tablet by mouth Daily. Active doxycycline (MONODOX) 100 MG capsule Take 1 capsule by mouth 2 (Two) Times a Day. 05/14/2024 Active vancomycin (VANCOCIN) 125 MG capsule Take 1 capsule by mouth 4 (Four) Times a Day. 05/14/2024 Active Active Problems Problem Noted Date Diagnosed Date Endometrial mass 05/19/2024 Assessment & Plan (05/19/2024 6:39 PM EDT): See discussion above. Vaginal bleeding 05/19/2024 Encounter for preconception consultation 024 Assessment & Plan (05/19/2024 6:42 PM EDT): Patient presents for a preconception consult after 2 blighted ovums and then a miscarriage of triplet at approximately 6wks. She reports having a D&C 1 month ago. She has had persistent vaginal bleeding ever since the D&C. She was given cytotec to take but has not passed any additional tissue. Bhcg on 03/17/2024 when patient was approximately 5wks was 8,900+. She had an ultrasound the following week that showed 3 viable triplets consistent with 6wks. I do not have the pathology report from the D&C or any follow-up Bhcg's. From my report in Viewpoint: Ultrasound today shows a teardrop shaped mass with measurements above (3.4cms x 2cms) within the endometrial cavity with a stalk noted originating at the anterior uterine fundus. The mass is heterogeneous and has significant blood flow that originates within the stalk. In most views, you are able to separate the mass from the myometrium of the normal uterus. Cervix appears normal. Left ovary is noted to have multiple small cysts. Right ovary is not clearly identified. There is no free fluid in the posterior cul de sac. I am concerned for possible uterine polyp versus submucosal fibroid versus gestational trophoblastic neoplasia. Recommend obtaining Bhcg tomorrow morning. If it is zero or very low, much more likely this is a polyp and could schedule for a hysteroscopic resection. If it is still high, greater than one month after D&C, I think we need to consider the third option. Then I would recommend transferring patient to MIXING AND MOLDING MACHINE OPERATOR ONC at either [facility] or here. I can help facilitate this transfer to either location. If you end up doing a polyp resection, I would have blood on hand, the Myosure for the stalk, and another set of seasoned hands for assistance. And, I would get a clear visual on the mass before I tried to remove it. If it is ugly in appearance or more consistent with a large AVM, I would remove the hysteroscope and transfer to Oncology. Social History Tobacco Use Types Packs/Day Years Used Date Smoking Tobacco: Former Cigarettes Q uit: 2018 Smokeless Tobacco: Never Tobacco Cessation:Counseling Given: Not Answered Alcohol Use Standard Drinks/Week Comments Never 0 (1 standard drink = 0.6 oz pur e alcohol) Abuse Screen Answer Date Recorded Unsafe at Home or Work/School Not on file Feels Threatened by Someone? Not on file Does Anyone Keep You from Co ntacting Others or Doint Things Outside the Home? Not on file 06/08/2023 Physical Sign of Abuse Present Not on file 1 Housing Stability Answer Date Recorded Current Living Arrangements Not on file 05/27 Potentially Unsafe Housing Conditions Not on jackie e 06/08/2023 Family and Community Support Answer Dave e Recorded Help with Day-to-Day Activities Not on file 06/08/2023 Lonely or Isolated Not on file 06/08/2023 Employment Answer Date Recorded Do you want help finding or keeping work or a pari b? Not on file 06/08/2023 Disabilities Answer Date Recorded Concentrating, Remembering, or Making Decisions Difficulty Not on file 06/08/2023 Doing Errands Independently Difficulty Not on fi le 06/08/2023 Education Answer Date Recorded Help with school or training? Not on file Preferred Language Not on file 06/08/2023 Comments No Sex and Gender Information Value Date Recorded Sex Assigned at Not on file Legal Sex Female 8:03 AM EDT Gender Identity Not on file Sexual Orientation Not on file Last Filed Vital Signs Vital Sign Reading Time Taken Comments Blood Pressure 115/70 05/19/2024 11:51 AM EDT Pulse 66 05/10/2022 11:21 AM EDT Temperature - - Respiratory Rate - - Oxygen Saturation - - Inhaled Oxygen Concentration - - Weight 65.5 kg (144 lb 6.4 oz) 05/10/2022 11:21 AM EDT Height 167.6 cm (5' 6 ) 05/19/2024 11:51 AM EDT Body Mass Index 22.79 05/10/2022 11:21 AM EDT Plan of Treatment Health Maintenance Due Date Last Done Comments Annual Gynecologic Pelvic an d Breast Exam 2001 HPV VACCINES (1 - 3-dose series) 2016 MENINGOCOCCAL B VACCINE (1 o f 2 - Standard) 2017 TDAP/TD VACCINES (1 - Tdap) 2020 ANNUAL PHYSICAL 05/10/2022 CHLAMYDIA SCREENING 05/10/2022 HEPATITIS C SCREENING 05/10/2022 PAP SMEAR 2022 COVID-19 Vaccine (1 - 2023-2 5 season) 2024 INFLUENZA VACCINE 05/27/2025 11/11/2016 Pneumococcal Vaccine 0-49 Aged Out No longer eligible based on patient's age to complete this topic [place] [id number] [place] [address] PPO Care Teams Early Childhood Coordinator Relationship Specialty Start Date End Date Zach Wang MD [address] [place] [address] PCP - General Family Medicine 05/19/24
--- OUTSIDE RECORDS SUMMARY | 2025-04-06 12:12 | XMS_ITS | Patient Health Record ---
Author Organization [facility] Address [address] [id number] Care Team Providers Care Frame Assembler Name Role Phone Rob Meade Primary Care Provider [phone] Kaila Weber Unavailable [phone] Tanya Subramanian Unavailable [phone] Allergies No Known Allergies Results Component Value Reference Range Notes TEN-stool panel Reviewed date:05/14/2024 09:49:30 AM Interpretation:Abnormal Performing Lab: Notes/Report: Abnormal TEN-stool panel Reviewed date:06/04/2024 02:02:44 PM Interpretation:Abnormal Performing Lab: Notes/Report: Abnormal TEN-stool panel Reviewed date:04/16/2024 11:19:49 AM Interpretation:Abnormal Performing Lab: Notes/Report: Abnormal CBC Fingerstick (in house) Reviewed date:04/10/2024 04:21:17 [...] 0.43 Performing Lab: Notes/Report: Test performed by [facility] , [address], [place] [address] Roberto Carlos Scott MD, [employer]glazer CLIA: [id number] Sodium 133 135-145 mmol/L Potassium 4.0 3.5-5.3 mmol/L Chloride 103 97-108 mmol/L CO2 22 22-32 mmol/L Glucose 88 65-99 mg/dL BUN 8 6-20 mg/dL Creatinine 0.43 0.50-1.00 mg/dL Calcium 9.3 8.6-10.4 mg/dL eGFR by Creatinine 141 >59 mL/min/1.73m2 Reason For Referral No Information Medications Medication [...] Vaccine Route Administration Date Status Comme nts Menactra IM Intramuscular 03/16/2018 Administered Hep A- Pediatric IM Intramuscular 03/16/2018 Administered Hep A- Pediatric IM Intramuscular 01/14/2019 Administered Fluzone PF Quad (6-35 months) Unknown 11/11/2016 Administered Problems Problem Type SNOMED Code ICD Code Onset Dates Problem Status W/U Status Risk Notes Problem Gastroesophageal reflux disease (342359211) GERD (gastroesophag eal reflux disease) (K21.9) Active confirmed Problem Mixed anxiety and depressive disorder (242635430) Depression with anxiety (F41.8) Active confirmed Problem Migraine without aura (86811893) Migraine without aura and with status migrainosus, not intractable (G43.001) Active confirmed Vital Signs Heart Rate 76 /min 04/10/2024 Blood pressure diastolic 68 mm Hg 04/10/2024 Height 68 in 05/08/2024 Blood pressure systolic 100 mm Hg 04/10/2024 Weight 000 lbs 05/08/2024 BMI 17.79 kg/m2 04/10/2024 Encounters Encounter Location Date Provider Diagnosis [facility] [address] [place], [place] [id number] 04/10/2024 Tanya Marilynn Intractable nausea a nd vomiting R11.2 ; First trimester Z34.91 ; Hypokalemia E87.6 and Chronic diarrhea K52.9 [facility] [address] [place], [place] [id number] 05/08/2024 Tanya Javondy Diarrhea R19.7 [facility] [address] [place], [place] [id number] 05/28/2024 Tanya Javondy [facility] [address] [place], [place] [id number] 04/11/2024 Tanya Crowdy [facility] [address] [place], [place] [id number] 04/15/2024 Tanya Crowdy [facility] [address] [place], [place] [id number] 04/21/2024 Kaila Weber [facility] [address] [place], [place] [id number] 05/14/2024 Tanya Javondy [facility] [address] [place], [place] [id number] 06/04/2024 Tanya Marilynn Assessments Encounter Date Diagnosis (ICD Code) Assessment [...] sleep. 04/10/2024 First trimester (ICD-10 - Z34.91) 05/08/2024 Diarrhea (ICD-10 - R19.7) 04/10/2024 Hypokalemia (ICD-10 - E87.6) 04/10/2024 Chronic diarrhea (ICD-10 - K52.9) Will get as stool panel. Plan Of Treatment No Information Insurance Providers Payer Name Payer Address Payer Phone Subscriber Number Group Number Insured Name Patient Relationship to Insured Coverage Start Date Coverage End Date JOSE LINDSAY [facility] [address] [place] [address] [id number] Radha Jason Child - Insured has Financial Responsibility Medical (General) History Surgical History Surgery Date(Month/Year) T&A 2005 Bilateral lazy eye 2006 [facility] 01/2022 Hospitalization History Reason Date(Month/Year) michelle moeller 12/2016
--- OUTSIDE RECORDS SUMMARY | 2025-04-06 12:12 | XMS_ITS | Encounter Summary ---
Author Organization [facility] Address [address] [place] [address] Care Team Providers Care Granite Cutter Apprentice Name Role Phone Ronald Issa MD Primary Care Provider [phone] Symone Michaels DO Unavailable [phone] Encounter Details Date Type Department Care Team ([facility] st Contact Info) Description 05/15/2024 Orders Only External Location [address] [place] [id number] Provider, External Social History Tobacco Use Types [...] on filedocumented in this encounter Care Teams Granite Cutter Apprentice Relationship Specialty Start Date End Date Ronald Issa MD [address] [place] [address] PCP - General 01/07/21 Symone Michaels DO [address] [place] [address] Referring Physician Obstetrics and Gynecology 05/29/24 documented as of this encounter
--- OUTSIDE RECORDS SUMMARY | 2025-04-06 12:13 | XMS_ITS | Clinical Summary ---
Author Organization [facility] Address [address] [place] [address] Care Team Providers Care Health Insurance Specialist Name Role Phone Ronald Issa MD Primary Care Provider [phone] Symone Michaels DO Unavailable [phone] Allergies No known active allergies Medications Vit-Fe [...] 19+ 3-dose series) 2020 [facility]-Pap Smear 2022 [id number] Vaccine (1 - season) 2024 [facility]-Influenza Vaccine [...] complete this topic Insurance ANTH Care Teams Health Insurance Specialist Relationship Specialty Start Date End Date Ronald Issa MD [address] [place] [address] PCP - General 01/07/21 Symone Michaels DO [address] [place] [address] Referring Physician Obstetrics and Gynecology 05/29/24
== END 2025-04-03 23:59 | disposition home or self-care (01) ==
LOC: LAB.DROPOF 04-06 12:06
PROVIDERS: PCP Obstetrics & Gynecology; Visit Provider Obstetrics & Gynecology
DX: Z34.90 Encounter for supervision of normal pregnancy, unspecified, unspecified trimester (principal); Z87.59 Personal history of other complications of pregnancy, childbirth and the puerperium
CPT/HCPCS: 87086

== ENCOUNTER 2025-04-24 13:39 | Outpatient (CLI) | payer BC, SELFPAY ==
--- OUTSIDE RECORDS SUMMARY | 2024-01-09 07:45 | XMS_ITS ---
Author Organization [facility] Address [address] [facility] [address] [place] [phone] Care Team Providers Care Senior Games Technician Name Role Phone Rob Meade Primary Care Provider Felipe Zach Unavailable [phone] Allergies No Known Allergies Results Component Value Reference Range Notes CBC Fingerstick (in house) Reviewed date:01/10/2024 08:46:02 AM Interpretation: Performing Lab: Notes/Report: wbc 7.4 3.5 - 10 lym 38.7 15 - 50 mid 9.1 2 - 15 gran 52.2 35 - 80 rbc 4.61 3.5 - 5.5 hgb 14.0 11.5 - 16.5 hct 42.1 35 - 55 mcv 91.2 75 - 100 mch 30.4 25 - 35 mchc 33.3 31 - 38 plat 133 100 - 400 P-Amylase Reviewed date:01/10/2024 09:42:22 AM Interpretation:Normal Performing Lab: Notes/Report: Test performed by [facility] [address] [place], [place] [address] [place] , [address], [place] [address] Roberto Carlos Scott MD, Table And Desk Finisher CLIA: [id number] Amylase 70 28-100 U/L P-Comprehensive Metabolic Pa jose de jesus (CMP) Reviewed date:01/10/2024 09:42:22 AM Interpretation:a/g 3.1 Performing Lab: Notes/Report: Test performed by [facility] [address] [place], [place] [address] [place] , [place] [address] Roberto Carlos Scott MD, Table And Desk Finisher CLIA: [id number] Sodium 141 135-145 mEq/L Potassium 3.5 3.5-5.3 mEq/L Chloride 105 97-108 mEq/L CO2 25 22-32 mEq/L Glucose 75 65-99 mg/dL BUN 8 6-20 mg/dL Creatinine 0.88 0.50-1.00 mg/dL Calcium 9.2 8.6-10.4 mg/dL eGFR by Creatinine 95 >59 mL/min/1.73m2 Protein 6.1 6.0-8.3 g/dL Albumin 4.6 3.5-5.3 g/dL Alkaline Phosphatase 40 35-121 IU/L ALT (SGPT) 11 <5-47 IU/L AST (SGOT) 15 <5-40 IU/L Bilirubin, Total 0.7 <0.2-1.2 mg/dL A/G Ratio 3.1 1.1-2.5 mg/dL P-Lipase Reviewed date:01/10/2024 09:42:22 AM Interpretation:64 Performing Lab: Notes/Report: Test performed by [facility] [address] , [place] [address] Roberto Carlos Scott MD, Table And Desk Finisher CLIA: [id number] Lipase 64.0 13.0-60.0 u/L P-Magnesium Reviewed date:01/10/2024 09:42:23 AM Interpretation:Normal Performing Lab: Notes/Report: Test performed by [facility] [address] [place] [address] , [place] [address] Roberto Carlos Scott MD, Table And Desk Finisher CLIA: [id number] Magnesium 2.3 1.6-2.4 mg/dL P-PT/PTT Panel Reviewed date:01/10/2024 09:42:23 AM Interpretation:Normal Performing Lab: Notes/Report: Test performed by [facility] [address] , [place] [address] Roberto Carlos Scott MD, Table And Desk Finisher CLIA: [id number] PT 11.4 9.5-12.2 sec INR 1.1 0.9-1.2 INR Reference Ranges for patients on anticoagulant therapy: RANGES: 2.0 - 3.0: Indications: Treatment of venous thrombosis or pulmonary embolism. Prevention of systemic embolism. Tissue heart valves. Acute myocardial infarction. Atrial fibrillation. 2.5 - 3.5: Indications: Recurrent embolism. Mechanical heart valves. Antiphospholipid antibodies. INR IS FOR USE IN STABILIZED ANTICOAGULATED PATIENTS. Elevated coagulation studies may be seen in patients with hematocrit of greater than 55%. Reference: Practical Diagnosis of Hematological Disorders. 3rd Edition. 2000. p 853. Partial Thromboplastin Time (PTT) 28.2 23.9-33.0 sec Heparin therapeutic range has not been validated for this assay. REASON FOR VISIT dizzy spells and bruising Medications Medication SIG (Take, Route, Fr equency, Duration) Notes Start Date End Date Status Ondansetron 4 MG 1 tablet on the tong ue and allow to dissolve Orally three times a day as needed 10/10/2023 Active Vital Signs Blood pressure systolic 110 mm Hg 01/09/20 24 Blood pressure diastolic 72 mm Hg 024 Heart Rate 94 /min 01/09/2024 Height 68 in 01/09/2024 Weight 122.6 lbs 01/09/2024 BMI 18.64 kg/m2 01/09/2024 Encounters Encounter Location Date Provider Diagnosis [facility] [address] [facility] [address] [place] [address] GABRIEL [phone] 01/09/2024 Zach [place] Dizziness R42 ; Easy bruising R23.3 and Nausea R11.0 Assessments Encounter Date Diagnosis (ICD Code) Assessment Notes Treatment Notes Treatment Clinical Notes Section Notes 01/09/2024 Dizziness (ICD-10 - R42) 01/09/2024 Easy bruising (ICD-10 - R23.3) 01/09/2024 Nausea (ICD-10 - R11.0) Plan Of Treatment Medication Medication Name Sig Start Date Stop Date Notes Ondansetron 4 MG 1 tablet on the tong ue and allow to dissolve Orally three times a day as needed 10/10/2023 Next Appt Details Follow Up: via phone to repo rt test results, Reason: Progress Notes * Milan BARBOUROB:[birth year] (24 yo F)Acc No.[id number]:01/09/2024 Progress Notes Patient: Bubba CHACONtlin Provider: Loren Wang M.D. :2000 A ge:23 Y S ex:Female Date:01/09/2024 Address:[facility] [address] , [id number] Pcp:Rob Meade Subjective: * Chief Complaints: * 1 . Dizzy spells and bruising. * HPI: H ematology: 23 year old female presents with c/o Bruising P t complains of bruising too easily . States she has always had this but she is concerned because it is getting worse. Pt states she is also dizzy at times and it is worse throughout the night. * ROS: C ARDIOLOGY: no D izziness. n o C hest pain. G ASTROENTEROLOGY: no N ausea. n o V omiting. U ROLOGY: no D ifficulty urinating. n o B lood in urine. * Medical History: M edical History Verified. * Surgical History: T &A 2004, Bilateral lazy eye 2005, DNC 01/2022. * Hospitalization/Major Diagno stic Procedure: olesya moeller 12/2016. * Family History: F ather: alive. M other: alive. P aternal Grand Father: alive. P aternal Grand Mother: alive. M aternal Grand Father: . M aternal Grand Mother: alive. 1 sister(s) - healthy. . * Social History: C URRENT TOBACCO USE: No . C affeine: yes, frequency:. Exercise: no. Marital Status: Single. Past smoking status: never smoked. Alcohol: No. * Medications: D iscontinued Ondansetron 4 MG Tablet Disintegrating 1 tablet on the tongue and allow to dissolve Orally three times a day as needed , Discontinued Promethazine HCl 12.5 MG Tablet 1 tablet as needed Orally every 6 hrs prn , Discontinued Omeprazole 40 MG Capsule Delayed Release 1 capsule 30 minutes before morning meal Orally Once a day , Discontinued Levsin 0.125 MG Tablet 1 tablet as needed Orally qid ac and HS , Discontinued Vancomycin HCl 125 MG Capsule 1 capsule Orally Four times a day , Discontinued metroNIDAZOLE 500 MG Tablet 1 tablet Orally Three times a day , Medication List reviewed and reconciled with the patient * Allergies: N .K.D.A. Objective: * Vitals: W t:122.6, Temp:98.0, BP:110/72, HR:94, Nurse:abad, Ht: 68, BMI:18.64. * Examination: G eneral Examination: General Appearance: N AD. H EENT: u nremarkable.?Oral cavity: n o lesions, mucosa moist and WNL, no erythema. N yung: s upple, no lymphadenopathy. H eart: R SR. L ungs: c lear to auscultation. A bdomen: bowel sounds present, soft and nontender. S kin: n ormal, no rash. P eripheral pulses: n ormal (2+) bilaterally. E xtremities: n o leg edema. Assessment: * Assessment: 1. D izziness - R42 (Primary) 2 . E asy bruising - R23.3 3 . N ausea - R11.0 Plan: * Treatment: Value Reference Range M agnesium 2.3 1.6-2.4 - mg/dL * Ysabel Kaur 01/10/2024 9:40 :53 AM >See phone encounter 2.?Easy bruising?LAB: P-PT/PTT Panel (Collection Date & Time - 01/09/2024 11:20 AM)?Normal* Value Reference Range I NR 1.1 0.9-1.2 - * P T 11.4 9.5-12.2 - sec * P artial Thromboplastin Time (PTT) 28.2 23.9-33 .0 - sec * Ysabel Kaur 01/10/2024 9:40 :53 AM >See phone encounter ?LAB: CBC Fingerstick (in house) (Collection Date & Time - 01/09/2024)* Value Reference Range w bc 7.4 3.5 - 10 * l ym 38.7 15 - 50 * m id 9.1 2 - 15 * g ran 52.2 35 - 80 * r bc 4.61 3.5 - 5.5 * h gb 14.0 11.5 - 16.5 * h ct 42.1 35 - 55 * m cv 91.2 75 - 100 * m ch 30.4 25 - 35 * m chc 33.3 31 - 38 * p lat 133 100 - 400 * Hilary Coronel 01/09/2024 11:59:2 2 AM > , Provider reviewed results while patient in office. 3.?Nausea? Refill Ondansetron Tablet Disintegrating, 4 MG, 1 tablet on the tongue and allow to dissolve, Orally, three times a day as needed, 20, Refills 0.?LAB: P-Amylase (Collection Date & Time - 01/09/2024 11:20 AM)?Normal* Value Reference Range A mylase 70 28-100 - U/L * Ysabel Kaur 01/10/2024 9:40 :53 AM >See phone encounter ?LAB: P-Comprehensive Metabolic Panel (CMP) (Collection Date & Time - 01/09/2024 11:20 AM)?a/g 3.1* Value Reference Range A /G Ratio 3.1 H 1.1-2.5 - mg/dL * A lbumin 4.6 3.5-5.3 - g/dL * A lkaline Phosphatase 40 35-121 - IU/L * A LT (SGPT) 11 <5-47 - IU/L * A ST (SGOT) 15 <5-40 - IU/L * B ilirubin, Total 0.7 <0.2-1.2 - mg/dL * B UN 8 6-20 - mg/dL * C alcium 9.2 8.6-10.4 - mg/dL * C hloride 105 97-108 - mEq/L * C O2 25 22-32 - mEq/L * C reatinine 0.88 0.50-1.00 - mg/dL * G lucose 75 65-99 - mg/dL * P otassium 3.5 3.5-5.3 - mEq/L * S odium 141 135-145 - mEq/L * P rotein 6.1 6.0-8.3 - g/dL * e GFR by Creatinine 95 >59 - mL/min/1.73m2 * Ysabel Kaur 01/10/2024 9:40 :53 AM >See phone encounter ?LAB: P-Lipase (Collection Date & Time - 01/09/2024 11:20 AM)?64* Value Reference Range L ipase 64.0 H 13.0-60.0 - u/L * Ysabel Kaur 01/10/2024 9:40 :53 AM >See phone encounter * Procedure Codes: 8 5025 CBC WITH AUTO DIFF * Follow Up: v ia phone to report test results * Images: Billing Information: * Visit Code: 08942 Office Visit, Est Pt., Level 4. * Procedure Codes: 12920 CBC WITH AUTO DIFF. * Electronic signature of Olga Wang MD on 04/24/2025 at 01:42 PM EDT Sign off status: Pending * Provider: Loren Wang M.D. Date: 0 01/09/2024 Generated for Elias smith/Andre/Princessitting on: 0 04/24/2025 01:42 PM EDT History and Physical Notes * HPI (History of Present Illness) Category Sub-Category Detail Notes Category Not es Hematology Bruising Pt complains of bruising too easily . States she has always had this but she is concerned because it is getting worse. Pt states she is also dizzy at times and it is worse throughout the night Examination Category Sub-Category Detail Notes Category Not es General Examination HEENT: unremarkable Heart: RSR Lungs: clear to auscultatio n Abdomen: bowel sounds present , soft and nontender Extremities: no leg edema General Appearance: NAD Skin: normal, no rash Neck: supple, no lymphaden opathy Oral cavity: no lesions, mucosa m oist and WNL, no erythema Peripheral pulses: normal (2+) bilatera lly
--- OUTSIDE RECORDS SUMMARY | 2024-03-20 05:30 | XMS_ITS ---
Author Organization Rachel Address 12[address] [facility] [address] [phone] Care Team Providers Care Program Medical Director Name Role Phone Rob Meade Primary Care Provider Tanya Subramanian [phone] Allergies No Known Allergies REASON FOR VISIT Telehealth- Positive Covid Vital Signs Heart Rate 00 /min 03/20/2024 Height 68 in 03/20/2024 Weight 108 lbs 03/20/2024 BMI 16.42 kg/m2 03/20/2024 Encounters Encounter Location Date Provider Diagnosis Rachel [facility] [address] [id number] 03/20/2024 Tanya Subramanian COVID-19 U07.1 Assessments Encounter Date Diagnosis (ICD Code) Assessment Notes Treatment Notes Treatment Clinical Notes Section Notes 03/20/2024 COVID-19 (ICD-10 - U07.1) Discussed conservative measures at this time. Very strict return to work precautions given. Reviewed isolation precautions with patient. Will remain off work through Sunday. 03/20/2024 Other Plan Of Treatment Treatment Notes Assessment Notes COVID-19 Discussed conservati ve measures at this time. Very strict return to work precautions given. Reviewed isolation precautions with patient. Will remain off work through Sunday. Next Appt Details Follow Up: prn, Reason: Progress Notes * Tevin BARBOURinDOB:[birth year] (24 yo F)Acc No.[id number]:03/20/2024 Progress Notes Patient: Herlinda CHACON Provider: EDMUNDO Gan :2000 A ge:23 Y S ex:Female Date:03/20/2024 Address:[address] , [id number] Pcp:Rob Meade Subjective: * Chief Complaints: * 1 . Telehealth- Positive Covid. * HPI: E NT/respiratory: 23 year old female presents with c/o cough p atient complains of greenish yellow sputum production cough for 1 4 days. Associated with body aches and n ausea. Positive home Covid test yesterday as well as at [facility] last night, is 6 weeks . C OVID-19 exposure screening questions: travel P t did go on cruise and was sick during cruise, symptoms worsened when she came home. l iving situation L latrice in home with family. S killed care exposure n one. h ealthcare worker n o. C OVID exposure I n the past 14 days prior to symptoms onset, patient has NOT been exposed to someone who has tested positive for novel coronavirus. * ROS: C ARDIOLOGY: no D izziness. n o C hest pain. D ERMATOLOGY: no R jose. n o H latrice. G ASTROENTEROLOGY: no N ausea. n o V omiting. n o D iarrhea.? U ROLOGY: no D ifficulty urinating. n o B lood in urine. n o F requent urination. * Medical History: M edical History Verified. * Surgical History: T &A 2004, Bilateral lazy eye 2005, DNC 01/2022. * Hospitalization/Major Diagno stic Procedure: olesya morse [place] 12/2016. * Family History: F ather: alive. [...] three times a day as needed , Medication List reviewed and reconciled with the patient * Allergies: N .K.D.A. Objective: * Vitals: W t:108, Temp:00, BP:00, HR:00, Nurse:abad, Ht: 68, BMI:16.42. * Examination: E NT/Respiratory: General Appearance: Audio only. Assessment: * Assessment: 1. C OVID-19 - U07.1 (Primary) Plan: * Treatment: * Procedure Codes: 9 9213 OFFICE VIST, EST PT. LEVEL 3, TELEHEALTH, Modifiers: 95 * Preventive Medicine: Counseling: T elehealth Consent: T elehealth VisitDiscussed with patient: You have chosen to receive care through the use of telemedicine. Telemedicine enables health care providers at different locations to provide safe, effective and convenient care through the use of technology. As with any health care service, there are risks associated with the use of telemedicine, including equipment failure, poor image resolution and information manager issues. You also understand that I cannot examine you and that you may need to come to clinic to complete the assessment.Patient consents to the use of telemedicine in his/her medical care today as well as the billing of their insurance for this visit. Patient verbally understands the risks and benefits of telemedicine as explained. All questions regarding telemedicine answered.I conducted this encounter from an office setting via secure, live, gkon-ee-bhva video conference with the patient who was located in their home. Prior to the interview, the risks and benefits of telemedicine were discussed with the patient and verbal consent was obtained., Telehealth VisitDiscussed with patient: You have chosen to receive care through the use of telemedicine. Telemedicine enables health care providers at different locations to provide safe, effective and convenient care through the use of technology. As with any health care service, there are risks associated with the use of telemedicine, including equipment failure, poor image resolution and information manager issues. You also understand that I cannot examine you and that you may need to come to clinic to complete the assessment.Patient consents to the use of telemedicine in his/her medical care today as well as the billing of their insurance for this visit. Patient verbally understands the risks and benefits of telemedicine as explained. All questions regarding telemedicine answered.I conducted this encounter from an office setting via secure, live, icmc-eg-nrve video conference with the patient who was located in their home. Prior to the interview, the risks and benefits of telemedicine were discussed with the patient and verbal consent was obtained..? * Follow Up: p rn * Images: Billing Information: * Visit Code: * Procedure Codes: 88062 OFFICE VIST, EST PT. LEVEL 3, TELEHEALTH. Modifiers: 95 * Electronic signature of EDMUNDO Rashid on 04/24/2025 at 01:42 PM EDT Sign off status: Pending * Provider: EDMUNDO Gan Date: 03/20/2024 Generated for Elias smith/Andre/Elda on: 04/24/2025 01:42 PM EDT History and Physical Notes * HPI (History of Present Illness) Category Sub-Category Detail Notes Category Not es ENT/respiratory cough patient complain s of greenish yellow sputum production cough for 14 days. Associated with body aches and nausea. 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
--- OUTSIDE RECORDS SUMMARY | 2024-04-10 11:15 | XMS_ITS ---
Author Organization [facility] Address [address] [id number] Care Team Providers Care Wood Getter Name Role Phone Rob Meade Primary Care Provider Marilynn Tanya Unavailable [phone] Allergies No Known Allergies Results Component Value [...] 0.43 Performing Lab: Notes/Report: Test performed by [employer], [employer] [facility]0 [facility] , [address], [place] [address] Roberto Carlos Scott MD, Learning Support Services Director CLIA: [id number] Sodium 133 135-145 mmol/L Potassium 4.0 3.5-5.3 [...] 04/10/2024 Encounters Encounter Location Date Provider Diagnosis [facility] [address] [place], [place] [id number] 04/10/2024 Tanya Subramanian Intractable nausea a nd [...] * Tevin BARBOURinDOB:[birth year] (24 yo F)Acc No.[id number]:04/10/2024 Progress Notes Patient: Olesya DIAZHENRY Herlinda Provider: EDMUNDO Gan :2000 A ge:23 Y S ex:Female Date:04/10/2024 Address:[facility] [address], [id number] Pcp:Rob Meade Subjective: * Chief Complaints: * [...] Procedure Codes: 3 6416 CAPILLARY BLOOD DRAW, 09899 CBC WITH AUTO DIFF * Follow Up: v ia phone to report test results * Images: Billing Information: * Visit Code: 15494 Office Visit, Est Pt., Level 3. * Procedure Codes: 63252 CAPILLARY BLOOD DRAW. 62494 CBC WITH AUTO DIFF. * Electronic signature of EDMUNDO Rashid on 04/24/2025 at 01:42 PM EDT Sign off status: Pending * Provider: EDMUNDO Gan Date: 04/10/2024 Generated for Elias smith/Andre/eTransmitting on: 04/24/2025 01:42 PM EDT History and [...]
--- OUTSIDE RECORDS SUMMARY | 2024-05-08 12:30 | XMS_ITS ---
Author Organization Dian Address [address] [phone] Care Team Providers Care Librarian Helper Name Role Phone Rob Meade Primary Care Provider Tanya Subramanian [phone] Allergies No Known Allergies Results Component Value Reference Range Notes TEN-stool panel Reviewed date:05/14/2024 09:49:30 AM Interpretation:Abnormal Performing Lab: Notes/Report: Abnormal REASON FOR VISIT stool sample Vital Signs Height 68 in 05/08/2024 Weight 000 lbs 05/08/2024 Encounters Encounter Location Date Provider Diagnosis Rachel 1210 [facility] [address] [phone] 05/08/2024 Tanya Subramanian Diarrhea R19.7 Assessments Encounter Date Diagnosis (ICD Code) Assessment Notes Treatment Notes Treatment Clinical Notes Section Notes 05/08/2024 Diarrhea (ICD-10 - R19.7) Plan Of Treatment No Information Progress Notes * Tevin BARBOURinDOB:[birth year] (24 yo F)Acc No.[id number]:05/08/2024 Patient: Spencer RANGELHerlinda Provider: EDMUNDO Gan :2000 A ge:23 Y S ex:Female Date:05/08/2024 Address:[address] [place] [phone] Pcp:Rob Meade Subjective: * Chief Complaints: * 1 . Stool sample. * Medical History: M edical History Verified. * Allergies: N .K.D.A. Objective: * Vitals: W t:000, Temp:000, BP:000, Nurse:CARLOS, Ht: 68. Assessment: * Assessment: [facility]. [facility] Plan: * Treatment: * Images: Billing Information: * Visit Code: * Procedure Codes: * Electronic signature of EDMUNDO Rashid on 04/24/2025 at 01:43 PM EDT Sign off status: Pending * Provider: EDMUNDO Gan Date: 0 05/08/2024 Generated for Elias smith/Andre/Elda on: 0 04/24/2025 01:43 PM EDT
--- OUTSIDE RECORDS SUMMARY | 2024-05-28 11:40 | XMS_ITS ---
Author Organization [facility] Address [address] [place] [phone] Care Team Providers Care Company Driver Name Role Phone Rob Meade Primary Care Provider Tanya Subramanian [phone] REASON FOR VISIT stool sample Encounters Encounter Location Date Provider Diagnosis [facility] [address] [place] [address] [place] [phone] 05/28/2024 Tanya Subramanian Plan Of Treatment No Information Progress Notes * Tevin BARBOURinDOB:[birth year] (24 yo F)Acc No.[id number]:05/28/2024 Patient: Herlinda CHACON Provider: EDMUNDO Gan :2000 A ge:23 Y S ex:Female Date:05/28/2024 Address:[address] [place] [phone] Pcp:Rob Meade Subjective: * Chief Complaints: * 1 . Stool sample. * Medical History: Objective: * Vitals: Assessment: Plan: * Treatment: * Images: Billing Information: * Visit Code: * Procedure Codes: * Electronic signature of EDMUNDO Rashid on 04/24/2025 at 01:42 PM EDT Sign off status: Pending * Provider: EDMUNDO Gan Date: 1 Generated for Elias smith/Andre/Princessitting on: 0 04/24/2025 01:42 PM EDT
--- OUTSIDE RECORDS SUMMARY | 2025-04-24 13:42 | XMS_ITS | Clinical Summary ---
Author Organization [facility] Address [address] [place] [address] Care Team Providers Care Certified Medical Coder Name Role Phone Ronald Issa MD Primary Care Provider [phone] Symone Michaels DO Unavailable [phone] Allergies No known active allergies Medications Vit-Fe [...] 19+ 3-dose series) 2020 [facility]-Pap Smear 2022 [id number] Vaccine (1 - season) 2024 [facility]-Influenza Vaccine [...] complete this topic Insurance ANTH Care Teams Certified Medical Coder Relationship Specialty Start Date End Date Ronald Issa MD [address] [place] [address] PCP - General 01/07/21 Symone Michaels DO [address] [place] [address] Referring Physician Obstetrics and Gynecology 05/29/24
--- OUTSIDE RECORDS SUMMARY | 2025-04-24 13:42 | XMS_ITS | Patient Health Record ---
Author Organization [facility] Address [address] [id number] Care Team Providers Care Industrial Psychologist Name Role Phone Rob Meade Primary Care Provider Tanya Subramanian Unavailable [phone] Allergies No Known Allergies Results Component Value [...] Status Risk Notes Problem Gastroesophageal reflux disease (664650668) GERD (gastroesophag eal reflux disease) (K21.9) Active confirmed Problem Mixed anxiety and depressive disorder (051886041) Depression with anxiety (F41.8) Active confirmed Problem Migraine without aura (87114295) Migraine without aura and with status migrainosus, not intractable (G43.001) Active confirmed Vital Signs Height 68 in 05/08/2024 Weight 000 lbs 05/08/2024 Encounters Encounter Location Date Provider Diagnosis [facility] [address] [place], [place] [id number] 05/08/2024 Tanya Subramanian Diarrhea R19.7 [facility] [address] [place], [place] [id number] 05/28/2024 Tanya Javondy [facility] [address] [place], [place] [id number] 05/14/2024 Tanya Crowdy [facility] [address] [place], [place] [id number] 06/04/2024 Tanya Subramanian Assessments Encounter Date Diagnosis (ICD Code) Assessment Notes Treatment Notes Treatment Clinical Notes Section Notes 05/08/2024 Diarrhea (ICD-10 - R19.7) Plan Of Treatment No Information Insurance Providers Payer Name Payer Address Payer Phone Subscriber Number Group Number Insured Name Patient Relationship to Insured Coverage Start Date Coverage End Date JOSE LINDSAY [employer] [address] [place] [address] [id number] Radha Barbour Child - Insured has Financial Responsibility Medical (General) History Surgical History Surgery Date(Month/Year) T&A 2005 Bilateral lazy eye 2006 [facility] 01/2022 Hospitalization History Reason Date(Month/Year) michelle moeller 12/2016
--- OUTSIDE RECORDS SUMMARY | 2025-04-24 13:42 | XMS_ITS | Clinical Summary ---
Author Organization [facility] Address [address] [place] [address] Care Team Providers Care Stagecraft Teacher Name Role Phone Zach Wang MD Primary Care Provider + [phone] Allergies No known active allergies Medications Vit-Fe [...] Then I would recommend transferring patient to OUTBOUND SALES SPECIALIST ONC at either [facility] or here. I can help facilitate this [...] age to complete this topic [place] [id number] [place] [address] PPO Care Teams Stagecraft Teacher Relationship Specialty Start Date End Date Zach Wang MD [address] [place] [address] PCP - General Family Medicine 05/19/24
--- OUTSIDE RECORDS SUMMARY | 2025-04-24 13:42 | XMS_ITS | Encounter Summary ---
Author Organization [facility] Address [address] [place] [address] Care Team Providers Care Molding Machine Operator Helper Name Role Phone Ronald Issa MD Primary Care Provider [phone] Symone Michaels DO Unavailable [phone] Encounter Details Date Type Department Care Team ([facility] st Contact Info) Description 05/15/2024 Orders Only External Location [address] [place] [phone] Provider, External Social History Tobacco Use Types [...] on filedocumented in this encounter Care Teams Molding Machine Operator Helper Relationship Specialty Start Date End Date Ronald Issa MD [address] [place] [address] PCP - General 01/07/21 Symone Michaels DO [address] [place] [address] Referring Physician Obstetrics and Gynecology 05/29/24 documented as of this encounter
--- NOTE | 2025-04-24 13:45 | US_ITS ---
PROCEDURE: US OB BIOPHYSICAL PROFILE CLINICAL INDICATION: intracardiac echogenic foci; sally/growth COMPARISON: US US OB /MATERNAL DETAIL from 01/06/2025 US US OB FOLLOW UP from 03/04/2025 FINDINGS: Transabdominal sonographic images of the uterus were obtained. From her established due date she is 36weeks 0 days. The following parameters are obtained: Viable Fetus in the cephalic presentation with a posterior placenta grade 2. Average ultrasound age is 35weeks 2days Estimated weight 2,376g, 5 lb 4 oz The cervix measures 3.22 cm Measurements: heart Rate = 138bpm BPD = 36weeks 2days, 66 percentile HC = 37weeks 0 days, 42 percentile AC = 33weeks 6days, 7 percentile FL = 33weeks 4days, 3 percentile HC/AC is 1.1 FL/BPD is 0.73 FL/AC is 0.22 11 percentile Amniotic fluid index: 7.75cm, MVP 4.17 cm. There is a pocket of fluid measuring 4.8 cm x 4.2 cm. Qualitative AFV:2 Breathing movements: 2 Gross Body Movements: 2 Tone: 2 Biophysical profile score: 8 No obvious anomalies evident.Kidneys, profile, stomach, bladder, four-chamber heart three-vessel cord appear normal. IMPRESSION: 1. Viable fetus in the cephalic presentation with a posterior placenta grade 2. 2. The fluid is within normal limits with an amniotic fluid index 7.75 cm, MVP 4.17 cm. There is a pocket of fluid measuring 4.8 cm x 4.2 cm. 3. Biophysical profile is 8/8 with good breathing movement and movement seen. 4. There has been good interval growth with the fetus currently 11th percentile. The abdominal circumference is approximately 2 weeks behind. 5. The previously described intracardiac echogenic foci is not seen today. 6. The rest of the limited anatomical scan appears normal. Dictated by: Satinder Soler MD 04/25/2025 06:55 Satinder Soler MD in OV 04/25/2025 06:55
== END 2025-04-24 23:59 | disposition home or self-care (01) ==
LOC: RAD 13:40
PROVIDERS: Visit Provider Obstetrics & Gynecology
DX: O30.003 Twin pregnancy, unspecified number of placenta and unspecified number of amniotic sacs, third trimester (principal); O31.23X0 Continuing pregnancy after intrauterine death of one fetus or more, third trimester, not applicable or unspecified; O09.293 Supervision of pregnancy with other poor reproductive or obstetric history, third trimester; O09.893 Supervision of other high risk pregnancies, third trimester; O28.3 Abnormal ultrasonic finding on antenatal screening of mother; Z28.39 Other underimmunization status; Z3A.36 36 weeks gestation of pregnancy
CPT/HCPCS: 76816; 76819

== ENCOUNTER 2025-04-30 10:30 | Outpatient (CLI) | payer BC, SELFPAY ==
--- OUTSIDE RECORDS SUMMARY | 2024-03-20 05:30 | XMS_ITS ---
Author Organization Rachel Address 1210 [facility] [address] [id number] Care Team Providers Care Steeler Name Role Phone Rob Meade Primary Care Provider Tanya Subramanian [phone] Allergies No Known Allergies REASON FOR VISIT Telehealth- Positive Covid Vital Signs Heart Rate 00 /min 03/20/2024 Height 68 in 03/20/2024 Weight 108 lbs 03/20/2024 BMI 16.42 kg/m2 03/20/2024 Encounters Encounter Location Date Provider Diagnosis Rachel 1210 [facility] [address] [phone] 03/20/2024 Tanya Subramanian COVID-19 U07.1 Assessments Encounter [...] * Tevin BARBOURinDOB:[birth year] (24 yo F)Acc No.[id number]:03/20/2024 Progress Notes Patient: Herlinda CHACON Provider: EDMUNDO Gan :2000 A ge:23 Y S ex:Female Date:03/20/2024 Address:[address] , [id number] Pcp:Rob Meade Subjective: * Chief Complaints: * 1 . Telehealth- Positive Covid. * HPI: E NT/respiratory: 23 year old female presents with c/o cough p atient complains of greenish yellow sputum production cough for 1 4 days. Associated with body aches and n ausea. Positive home Covid test yesterday as well as at [facility] last night, is 6 weeks . C [...] * Hospitalization/Major Diagno stic Procedure: olesya morse [place] 12/2016. * Family History: F ather: alive. [...] equipment failure, poor image resolution and information technology coordinator issues. You also understand that I cannot [...] from an office setting via secure, live, jgef-hy-ukal video conference with the patient who was [...] equipment failure, poor image resolution and information technology coordinator issues. You also understand that I cannot [...] from an office setting via secure, live, [id number]-op-rpbl video conference with the patient who was located in their home. Prior to the interview, the risks and benefits of telemedicine were discussed with the patient and verbal consent was obtained..? * Follow Up: p rn * Images: Billing Information: * Visit Code: * Procedure Codes: 60827 OFFICE VIST, EST PT. LEVEL 3, TELEHEALTH. Modifiers: 95 * Electronic signature of EDMUNDO Rashid on 05/04/2025 at 09:10 AM EDT Sign off status: Pending * Provider: EDMUNDO Gan Date: 0 03/20/2024 Generated for Elias smith/Andre/Elad on: 0 05/04/2025 09:10 AM EDT History and Physical Notes * HPI (History of Present Illness) Category Sub-Category Detail Notes Category Not es ENT/respiratory cough patient complain s of greenish yellow sputum production cough for 14 days. Associated with body aches and nausea. 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
--- OUTSIDE RECORDS SUMMARY | 2024-04-10 11:15 | XMS_ITS ---
Author Organization [facility] Address [address] [phone] Care Team Providers Care Urban Planning Teacher Name Role Phone Rob Meade Primary Care Provider Marilynn Tanya Unavailable [phone] Allergies No Known Allergies Results Component Value [...] 0.43 Performing Lab: Notes/Report: Test performed by [employer], [employer] [facility]0 [facility] , [address], [place] [address] Roberto Carlos Scott MD, Cnc Machinist CLIA: [id number] Sodium 133 135-145 mmol/L Potassium 4.0 3.5-5.3 [...] 04/10/2024 Encounters Encounter Location Date Provider Diagnosis [facility] [address] [place], [place] [phone] 04/10/2024 Tanya Subramanian Intractable nausea a nd [...] * Tevin BARBOURinDOB:[birth year] (24 yo F)Acc No.[id number]:04/10/2024 Progress Notes Patient: Olesya DIAZHENRY Herlinda Provider: EDMUNDO Gan :2000 A ge:23 Y S ex:Female Date:04/10/2024 Address:[facility] [address], [facility] Pcp:Rob Meade Subjective: * Chief Complaints: * [...] Procedure Codes: 3 6416 CAPILLARY BLOOD DRAW, 55455 CBC WITH AUTO DIFF * Follow Up: v ia phone to report test results * Images: Billing Information: * Visit Code: 18249 Office Visit, Est Pt., Level 3. * Procedure Codes: 50620 CAPILLARY BLOOD DRAW. 24337 CBC WITH AUTO DIFF. * Electronic signature of EDMUNDO Rashid on 05/04/2025 at 09:09 AM EDT Sign off status: Pending * Provider: EDMUNDO Gan Date: 0 04/10/2024 Generated for Elias smith/Andre/eTransmitting on: 0 05/04/2025 09:09 AM EDT History and Physical Notes * [...]
--- OUTSIDE RECORDS SUMMARY | 2024-05-08 12:30 | XMS_ITS ---
Author Organization Dian Address [address] [phone] Care Team Providers Care Machine Assembler For Puller Over Name Role Phone Rob Meade Primary Care Provider Tanya Subramanian [phone] Allergies No Known Allergies Results Component Value Reference Range Notes TEN-stool panel Reviewed date:05/14/2024 09:49:30 AM Interpretation:Abnormal Performing Lab: Notes/Report: Abnormal REASON FOR VISIT stool sample Vital Signs Height 68 in 05/08/2024 Weight 000 lbs 05/08/2024 Encounters Encounter Location Date Provider Diagnosis Rachel 1210 [facility] [address] [phone] 05/08/2024 Tanya Subramanian Diarrhea R19.7 Assessments Encounter Date Diagnosis (ICD Code) Assessment Notes Treatment Notes Treatment Clinical Notes Section Notes 05/08/2024 Diarrhea (ICD-10 - R19.7) Plan Of Treatment No Information Progress Notes * Tevin BARBOURinDOB:[birth year] (24 yo F)Acc No.[id number]:05/08/2024 Patient: Spencer RANGEL Herlinda Provider: EDMUNDO Gan :2000 A ge:23 Y S ex:Female Date:05/08/2024 Address:[address] [place] [phone] Pcp:Rob Meade Subjective: * Chief Complaints: * 1 . Stool sample. * Medical History: M edical History Verified. * Allergies: N .K.D.A. Objective: * Vitals: W t:000, Temp:000, BP:000, Nurse:CARLOS, Ht: 68. Assessment: * [facility] Plan: * Treatment: * Images: Billing Information: * Visit Code: * Procedure Codes: * Electronic signature of EDMUNDO Rashid on 05/04/2025 at 09:10 AM EDT Sign off status: Pending * Provider: EDMUNDO Gan Date: 0 05/08/2024 Generated for Elias smith/Andre/Elda on: 0 05/04/2025 09:10 AM EDT
--- OUTSIDE RECORDS SUMMARY | 2024-05-28 11:40 | XMS_ITS ---
Author Organization [facility] Address [address] [place] [phone] Care Team Providers Care Wild Life Photographer Name Role Phone Rob Meade Primary Care Provider Tanya Subramanian [phone] REASON FOR VISIT stool sample Encounters Encounter Location Date Provider Diagnosis [facility] [address] [place] [address] [place] [phone] 05/28/2024 Tanya Subramanian Plan Of Treatment No Information Progress Notes * Tevin BARBOURinDOB:[birth year] (24 yo F)Acc No.[id number]:05/28/2024 Patient: Herlinda CHACON Provider: EDMUNDO Gan :2000 A ge:23 Y S ex:Female Date:05/28/2024 Address:[address] [place] [phone] Pcp:Rob Meade Subjective: * Chief Complaints: * 1 . Stool sample. * Medical History: Objective: * Vitals: Assessment: Plan: * Treatment: * Images: Billing Information: * Visit Code: * Procedure Codes: * Electronic signature of EDMUNDO Rashid on 05/04/2025 at 09:10 AM EDT Sign off status: Pending * Provider: EDMUNDO Gan Date: 1 Generated for Elias smith/Andre/Princessitting on: 0 05/04/2025 09:10 AM EDT
--- OUTSIDE RECORDS SUMMARY | 2025-05-04 09:09 | XMS_ITS | Clinical Summary ---
Author Organization [facility] Address [address] [place] [address] Care Team Providers Care Automatic Tire Tester Name Role Phone Zach Wang MD Primary Care Provider + [phone] Allergies No known active allergies Medications Vit-Fe [...] Then I would recommend transferring patient to LARYNGOLOGIST ONC at either [facility] or here. I can help facilitate this [...] COVID-19 Vaccine (1 - 2023-2 5 season) 2025 INFLUENZA VACCINE 05/27/2025 11/11/2016 Pneumococcal Vaccine 0-49 Aged Out No longer eligible based on patient's age to complete this [place] [id number] [place] [address] PPO Care Teams Automatic Tire Tester Relationship Specialty Start Date End Date Zach Wang MD [address] [place] [address] PCP - General Family Medicine 05/19/24
--- OUTSIDE RECORDS SUMMARY | 2025-05-04 09:10 | XMS_ITS | Clinical Summary ---
Author Organization [facility] Address [address] [place] [address] Care Team Providers Care Farm Management Supervisor Name Role Phone Ronald Issa MD Primary Care Provider [phone] Symone Michaels DO Unavailable [phone] Allergies No known active allergies Medications Vit-Fe [...] 19+ 3-dose series) 2020 [facility]-Pap Smear 2022 [id number] Vaccine (1 - season) 2025 [facility]-Influenza Vaccine (#1) 2025 11/11/2016 [facility]-Depression Screening [...] complete this topic Insurance ANTH Care Teams Farm Management Supervisor Relationship Specialty Start Date End Date Ronald Issa MD [address] [place] [address] PCP - General 01/07/21 Symone Michaels DO [address] [place] [address] Referring Physician Obstetrics and Gynecology 05/29/24
--- OUTSIDE RECORDS SUMMARY | 2025-05-04 09:10 | XMS_ITS | Patient Health Record ---
Author Organization [facility] Address [address] [id number] Care Team Providers Care Nursing Clerk Name Role Phone Rob Meade Primary Care Provider Tanya Subramanian Unavailable [phone] Allergies No Known Allergies Results Component Value Reference Range Notes TEN-stool panel Reviewed date:06/04/2024 02:02:44 PM Interpretation:Abnormal Performing Lab: Notes/Report: Abnormal TEN-stool panel Reviewed date:05/14/2024 09:49:30 AM Interpretation:Abnormal Performing Lab: Notes/Report: Abnormal Reason For [...] Status Risk Notes Problem Gastroesophageal reflux disease (311559537) GERD (gastroesophag eal reflux disease) (K21.9) Active confirmed Problem Mixed anxiety and depressive disorder (584472051) Depression with anxiety (F41.8) Active confirmed Problem Migraine without aura (10631916) Migraine without aura and with status migrainosus, not intractable (G43.001) Active confirmed Vital Signs Height 68 in 05/08/2024 Weight 000 lbs 05/08/2024 Encounters Encounter Location Date Provider Diagnosis [facility] [address] [place], [place] [id number] 05/08/2024 Tanya Subramanian Diarrhea R19.7 [facility] [address] [place], [place] [id number] 05/28/2024 Tanya Javondy [facility] [address] [place], [place] [id number] 05/14/2024 Tanya Crowdy [facility] [address] [place], [place] [id number] 06/04/2024 Tanya Subramanian Assessments Encounter Date Diagnosis (ICD Code) Assessment Notes Treatment Notes Treatment Clinical Notes Section Notes 05/08/2024 Diarrhea (ICD-10 - R19.7) Plan Of Treatment No Information Insurance Providers Payer Name Payer Address Payer Phone Subscriber Number Group Number Insured Name Patient Relationship to Insured Coverage Start Date Coverage End Date JOSE LINDSAY [employer] [address] [place] [address] [id number] Radha Barbour Child - Insured has Financial Responsibility Medical (General) History Surgical History Surgery Date(Month/Year) T&A 2005 Bilateral lazy eye 2006 [facility] 01/2022 Hospitalization History Reason Date(Month/Year) michelle moeller 12/2016
--- OUTSIDE RECORDS SUMMARY | 2025-05-04 09:10 | XMS_ITS | Encounter Summary ---
Author Organization [facility] Address [address] [place] [address] Care Team Providers Care Hangersmith Name Role Phone Ronald Issa MD Primary Care Provider [phone] Symone Michaels DO Unavailable [phone] Encounter Details Date Type Department Care Team ([facility] st Contact Info) Description 05/15/2024 Orders Only External Location [address] [place] [id number] Provider, External Social History Tobacco Use Types [...] on filedocumented in this encounter Care Teams Hangersmith Relationship Specialty Start Date End Date Ronald Issa MD [address] [place] [address] PCP - General 01/07/21 Symone Michaels DO [address] [place] [address] Referring Physician Obstetrics and Gynecology 05/29/24 documented as of this encounter
== END 2025-04-30 23:59 ==
LOC: LAB.DROPOF 05-04 08:59
PROVIDERS: PCP Obstetrics & Gynecology; Visit Provider Obstetrics & Gynecology
DX: O09.899 Supervision of other high risk pregnancies, unspecified trimester (principal); Z28.39 Other underimmunization status; O99.340 Other mental disorders complicating pregnancy, unspecified trimester; F32.A Depression, unspecified; O99.320 Drug use complicating pregnancy, unspecified trimester; F12.90 Cannabis use, unspecified, uncomplicated; Z87.59 Personal history of other complications of pregnancy, childbirth and the puerperium
CPT/HCPCS: 86403

== ENCOUNTER 2025-05-14 13:10 | Inpatient (IN) | payer BC, SELFPAY ==
--- OUTSIDE RECORDS SUMMARY | 2024-01-09 07:45 | XMS_ITS ---
Author Organization [facility] Address [address] [facility] [address] [place] [phone] Care Team Providers Care Aerophysicist Name Role Phone Rob Meade Primary Care Provider [phone] Felipe Zach Unavailable [phone] Allergies No Known Allergies Results Component Value [...] Interpretation:Normal Performing Lab: Notes/Report: Test performed by [facility] [address] [place], [place] [address] [place] , [address], [place] [address] Roberto Carlos Scott MD, Third Rail Installer CLIA: [id number] Amylase 70 28-100 U/L P-Comprehensive Metabolic Pa jose de jesus (CMP) Reviewed date:01/10/2024 09:42:22 AM Interpretation:a/g 3.1 Performing Lab: Notes/Report: Test performed by [facility] [address] [place], [place] [address] [place] , [place] [address] Roberto Carlos Scott MD, Third Rail Installer CLIA: [id number] Sodium 141 135-145 mEq/L Potassium 3.5 3.5-5.3 [...] Interpretation:64 Performing Lab: Notes/Report: Test performed by [email or web address] [address] , [place] [address] Roberto Carlos Scott MD, Third Rail Installer CLIA: [id number] Lipase 64.0 13.0-60.0 u/L P-Magnesium Reviewed date:01/10/2024 09:42:23 AM Interpretation:Normal Performing Lab: Notes/Report: Test performed by [facility] [address] [place] [address] , [place] [address] Roberto Carlos Scott MD, Third Rail Installer CLIA: [id number] Magnesium 2.3 1.6-2.4 mg/dL P-PT/PTT Panel Reviewed date:01/10/2024 09:42:23 AM Interpretation:Normal Performing Lab: Notes/Report: Test performed by [email or web address] [address] , [place] [address] Roberto Carlos Scott MD, Third Rail Installer CLIA: [id number] PT 11.4 9.5-12.2 sec INR 1.1 0.9-1.2 [...] 01/09/2024 Encounters Encounter Location Date Provider Diagnosis [facility] [address] [facility] [address] [place] [address] GABRIEL [id number] 01/09/2024 Zach Gle[place] Dizziness R42 ; Easy bruising R23.3 and [...] * Milan BARBOUROB:[birth year] (24 yo F)Acc No.[id number]:01/09/2024 Progress Notes Patient: Bubba CHACONtlin Provider: Loren Wang M.D. :2000 A ge:23 Y S ex:Female Date:01/09/2024 Address:[facility] [address] , [id number] Pcp:Rob Meade Subjective: * Chief Complaints: [...] * Images: Billing Information: * Visit Code: 15543 Office Visit, Est Pt., Level 4. * Procedure Codes: 64659 CBC WITH AUTO DIFF. * Electronic signature of Olga Wang MD on 05/14/2025 at 01:17 PM EDT Sign off status: Pending * Provider: Loren Wang M.D. Date: 0 01/09/2024 Generated for Elias smith/Andre/Princessitting on: 0 05/14/2025 01:17 PM EDT History and Physical Notes * [...]
--- OUTSIDE RECORDS SUMMARY | 2024-03-20 05:30 | XMS_ITS ---
Author Organization Rachel Address 1210 [facility] [address] [phone] Care Team Providers Care Energy Assistant Name Role Phone Rob Meade Primary Care Provider Tanya Subramanian [phone] Allergies No Known Allergies REASON FOR VISIT Telehealth- Positive Covid Vital Signs Heart Rate 00 /min 03/20/2024 Height 68 in 03/20/2024 Weight 108 lbs 03/20/2024 BMI 16.42 kg/m2 03/20/2024 Encounters Encounter Location Date Provider Diagnosis Rachel 1210 [facility] [address] [phone] 03/20/2024 Tanya Subramanian COVID-19 U07.1 Assessments Encounter [...] * Tevin BARBOURinDOB:[birth year] (24 yo F)Acc No.[id number]:03/20/2024 Progress Notes Patient: Herlinda CHACON Provider: EDMUNDO Gan :2000 A ge:23 Y S ex:Female Date:03/20/2024 Address:[address] , [id number] Pcp:Rob Meade Subjective: * Chief Complaints: * 1 . Telehealth- Positive Covid. * HPI: E NT/respiratory: 23 year old female presents with c/o cough p atient complains of greenish yellow sputum production cough for 1 4 days. Associated with body aches and n ausea. Positive home Covid test yesterday as well as at [facility] last night, is 6 weeks . C [...] * Hospitalization/Major Diagno stic Procedure: olesya morse [place] 12/2016. * Family History: F ather: alive. [...] equipment failure, poor image resolution and information systems analyst issues. You also understand that I cannot [...] from an office setting via secure, live, vigi-ed-nkoa video conference with the patient who was [...] equipment failure, poor image resolution and information systems analyst issues. You also understand that I cannot [...] from an office setting via secure, live, styv-jw-yqkk video conference with the patient who was located in their home. Prior to the interview, the risks and benefits of telemedicine were discussed with the patient and verbal consent was obtained..? * Follow Up: p rn * Images: Billing Information: * Visit Code: * Procedure Codes: 42644 OFFICE VIST, EST PT. LEVEL 3, TELEHEALTH. Modifiers: 95 * Electronic signature of EDMUNDO Rashid on 05/14/2025 at 01:18 PM EDT Sign off status: Pending * Provider: EDMUNDO Gan Date: 03/20/2024 Generated for Elias smiht/Andre/Elda on: 05/14/2025 01:18 PM EDT History and Physical Notes * HPI (History of Present Illness) Category Sub-Category Detail Notes Category Not es ENT/respiratory cough patient complain s of greenish yellow sputum production cough for 14 days. Associated with body aches and nausea. 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 [place] Skilled care exposure none healthcare worker no COVID exposure In the past 14 days prior to symptoms onset, patient has NOT been exposed to someone who has tested positive for novel coronavirus Examination Category Sub-Category Detail Notes Category Not es ENT/Respiratory General Appearance: Audio only
--- OUTSIDE RECORDS SUMMARY | 2024-04-10 11:15 | XMS_ITS ---
Author Organization [facility] Address [address] [phone] Care Team Providers Care Produce Laborer Name Role Phone Rob Meade Primary Care Provider Marilynn Tanya Unavailable [phone] Allergies No Known Allergies Results Component Value [...] 0.43 Performing Lab: Notes/Report: Test performed by [employer], [employer] [place] [facility] , [address], [place] [address] Roberto Carlos Scott MD, Computer Aided Design Operator CLIA: [id number] Sodium 133 135-145 mmol/L Potassium 4.0 3.5-5.3 [...] 04/10/2024 Encounters Encounter Location Date Provider Diagnosis [facility] [address] [place], [place] [phone] 04/10/2024 Tanya Subramanian Intractable nausea a nd [...] * Tevin BARBOURinDOB:[birth year] (24 yo F)Acc No.[id number]:04/10/2024 Progress Notes Patient: Olesya DIAZHENRY Herlinda Provider: EDMUNDO Gan :2000 A ge:23 Y S ex:Female Date:04/10/2024 Address:[facility] [address], [facility]-[id number] Pcp:Rob Meade Subjective: * Chief Complaints: * [...] Procedure Codes: 3 6416 CAPILLARY BLOOD DRAW, 69851 CBC WITH AUTO DIFF * Follow Up: v ia phone to report test results * Images: Billing Information: * Visit Code: 35485 Office Visit, Est Pt., Level 3. * Procedure Codes: 42327 CAPILLARY BLOOD DRAW. 50016 CBC WITH AUTO DIFF. * Electronic signature of EDMUNDO Rashid on 05/14/2025 at 01:18 PM EDT Sign off status: Pending * Provider: EDMUNDO Gan Date: 0 04/10/2024 Generated for Elias smith/Andre/eTransmitting on: 0 05/14/2025 01:18 PM EDT History and Physical [...]
--- OUTSIDE RECORDS SUMMARY | 2024-05-08 12:30 | XMS_ITS ---
Author Organization Dian Address [address] [phone] Care Team Providers Care Wind Farm Electrical Systems Designer Name Role Phone Rob Meade Primary Care Provider Tanya Subramanian [phone] Allergies No Known Allergies Results Component Value Reference Range Notes TEN-stool panel Reviewed date:05/14/2024 09:49:30 AM Interpretation:Abnormal Performing Lab: Notes/Report: Abnormal REASON FOR VISIT stool sample Vital Signs Height 68 in 05/08/2024 Weight 000 lbs 05/08/2024 Encounters Encounter Location Date Provider Diagnosis Rachel 1210 [facility] [address] [phone] 05/08/2024 Tanya Subramanian Diarrhea R19.7 Assessments Encounter Date Diagnosis (ICD Code) Assessment Notes Treatment Notes Treatment Clinical Notes Section Notes 05/08/2024 Diarrhea (ICD-10 - R19.7) Plan Of Treatment No Information Progress Notes * Tevin BARBOURinDOB:[birth year] (24 yo F)Acc No.[id number]:05/08/2024 Patient: Spencer RANGEL Herlinda Provider: EDMUNDO Gan :2000 A ge:23 Y S ex:Female Date:05/08/2024 Address:[address] [place] [phone] Pcp:Rob Meade Subjective: * Chief Complaints: * 1 . Stool sample. * Medical History: M edical History Verified. * Allergies: N .K.D.A. Objective: * Vitals: W t:000, Temp:000, BP:000, Nurse:CARLOS, Ht: 68. Assessment: * [facility]. [facility] Plan: * Treatment: * Images: Billing Information: * Visit Code: * Procedure Codes: * Electronic signature of EDMUNDO Rashid on 05/14/2025 at 01:18 PM EDT Sign off status: Pending * Provider: EDMUNDO Gan Date: 0 05/08/2024 Generated for Elias smith/Andre/Elda on: 05/14/2025 01:18 PM EDT
--- OUTSIDE RECORDS SUMMARY | 2024-05-28 11:40 | XMS_ITS ---
Author Organization [facility] Address [address] [place] [phone] Care Team Providers Care Patient Admitting Representative Name Role Phone Rob Meade Primary Care Provider Tanya Subramanian [phone] REASON FOR VISIT stool sample Encounters Encounter Location Date Provider Diagnosis [facility] [address] [place] [address] [place] [phone] 05/28/2024 Tanya Subramanian Plan Of Treatment No Information Progress Notes * Tevin BARBOURinDOB:[birth year] (24 yo F)Acc No.[id number]:05/28/2024 Patient: Herlinda CHACON Provider: EDMUNDO Gan :2000 A ge:23 Y S ex:Female Date:05/28/2024 Address:[address] [place] [phone] Pcp:Rob Meade Subjective: * Chief Complaints: * 1 . Stool sample. * Medical History: Objective: * Vitals: Assessment: Plan: * Treatment: * Images: Billing Information: * Visit Code: * Procedure Codes: * Electronic signature of EDMUNDO Rashid on 05/14/2025 at 01:18 PM EDT Sign off status: Pending * Provider: EDMUNDO Gan Date: 1 Generated for Elias smith/Andre/Princessitting on: 0 05/14/2025 01:18 PM EDT
[2025-05-14 13:17] VITALS: BMI 32.1
--- OUTSIDE RECORDS SUMMARY | 2025-05-14 13:17 | XMS_ITS | Clinical Summary ---
Author Organization [facility] Address [address] [place] [address] Care Team Providers Care Laborer Chicken Farm Name Role Phone Zach Wang MD Primary Care Provider + [phone] Allergies No known active allergies Medications Vit-Fe [...] Then I would recommend transferring patient to SALES REPRESENTATIVE GRAPHIC ART ONC at either [facility] or here. I can help facilitate this [...] age to complete this topic [place] [id number] [place] [address] PPO Care Teams Laborer Chicken Farm Relationship Specialty Start Date End Date Zach Wang MD [address] [place] [address] PCP - General Family Medicine 05/19/24
--- OUTSIDE RECORDS SUMMARY | 2025-05-14 13:18 | XMS_ITS | Clinical Summary ---
Author Organization [facility] Address [address] [place] [address] Care Team Providers Care Entry Level Project Coordinator Name Role Phone Ronald Issa MD Primary Care Provider [phone] Symone Michaels DO Unavailable [phone] Allergies No known active allergies Medications Vit-Fe [...] 19+ 3-dose series) 2020 [facility]-Pap Smear 2022 [id number] Vaccine (1 - season) 2025 [facility]-Influenza Vaccine [...] complete this topic Insurance ANTH Care Teams Entry Level Project Coordinator Relationship Specialty Start Date End Date Ronald Issa MD [address] [place] [address] PCP - General 01/07/21 Symone Michaels DO [address] [place] [address] Referring Physician Obstetrics and Gynecology 05/29/24
--- OUTSIDE RECORDS SUMMARY | 2025-05-14 13:18 | XMS_ITS | Encounter Summary ---
Author Organization Healthcare Address [address] [place] [address] Care Team Providers Care Security Inspector Name Role Phone Ronald Issa MD Primary Care Provider [phone] Symone Michaels DO Unavailable [phone] Encounter Details Date Type Department Care Team ([facility] st Contact Info) Description 05/15/2024 Orders Only External Location [address] [place] [id number] Provider, External Social History Tobacco Use Types [...] on filedocumented in this encounter Care Teams Security Inspector Relationship Specialty Start Date End Date Ronald Issa MD [address] [place] [address] PCP - General 01/07/21 Symone Michales DO [address] [place] [address] Referring Physician Obstetrics and Gynecology 05/29/24 documented as of this encounter
--- OUTSIDE RECORDS SUMMARY | 2025-05-14 13:18 | XMS_ITS | Patient Health Record ---
Author Organization [facility] Address [address] [facility] [address] [id number] Care Team Providers Care Clinical Laboratory Technician Name Role Phone Rob Meade Primary Care Provider Tanya Subramanian Unavailable [phone] Allergies No Known Allergies Results Component Value [...] Status Risk Notes Problem Gastroesophageal reflux disease (133743703) GERD (gastroesophag eal reflux disease) (K21.9) Active confirmed Problem Mixed anxiety and depressive disorder (428805981) Depression with anxiety (F41.8) Active confirmed Problem Migraine without aura (29991558) Migraine without aura and with status migrainosus, not intractable (G43.001) Active confirmed Encounters Encounter Location Date Provider Diagnosis [facility] [address] [place] [id number] 05/28/2024 Tanya Subramanian [facility] [address] [place] [id number] 05/14/2024 Tanya Subramanian [facility] [address] [facility] [address] [place], [place] [id number] 06/04/2024 Tanya Subramanian Plan Of Treatment No Information Insurance Providers Payer Name Payer Address Payer Phone Subscriber Number Group Number Insured Name Patient Relationship to Insured Coverage Start Date Coverage End Date JOSE LINDSAY [facility] [address] [place] [address] [id number] Radha Barbour Child - Insured has Financial Responsibility Medical (General) History Surgical History Surgery Date(Month/Year) T&A 2005 Bilateral lazy eye 2006 [facility] 01/2022 Hospitalization History Reason Date(Month/Year) michelle moeller 12/2016
[2025-05-14 13:51] LABS: Hematocrit 38.0 % (37.0-47.0); Hemoglobin 13.1 g/dL (12.2-16.2); Immature Granulocytes % 3.5 %; Mean Corpuscular HGB Conc 34.5 g/dL (31.8-35.4); Mean Corpuscular Hemoglobin 31.0 pg (27.0-31.2); Mean Corpuscular Volume 89.8 fl (81-99); Nucleated Red Blood Cells % 0 %; Platelet Count 148 K/mm3 (142-424); Red Blood Count 4.23 M/mm3 (4.20-5.40); Red Cell Distribution Width-SD 47.0 fL; White Blood Count 11.2 K/mm3 (4.8-10.8)
[2025-05-14 14:14] VITALS: BP 131/80; PULSE 85; RESP 18; TEMP 36.7; O2SAT 97; BMI 32.1
[2025-05-14 15:08] LABS: Microscopic, Urine URINE MICROSCOPIC (MICROSCOPIC)
[2025-05-14 15:30] LABS: Bilirubin,Urine Negative (Negative); Color,Urine YELLOW (Yellow); Glucose,Urine (UA) Negative (Negative); Ketones,Urine Negative (Negative); Leukocyte Esterase,Urine Negative (Negative); PH,Urine 7.0 (5.0-8.5); Protein,Urine Negative (Negative); Specific Gravity, Urine 1.020 (1.005-1.030); Urobilinogen,Urine 0.2 EU/dl (0.2)
[2025-05-14 16:11] LABS: Bacteria,Urine 2+ /lpf; RBC,Urine Occasional #/hpf (0-3)
[2025-05-14 19:37] VITALS: BP 125/75; PULSE 73; RESP 18; TEMP 36.6; O2SAT 98
[2025-05-15 00:25] VITALS: BP 118/66; PULSE 75; RESP 18; TEMP 36.7; O2SAT 98
[2025-05-15 04:10] VITALS: BP 114/61; PULSE 84; RESP 18; TEMP 36.6; O2SAT 99
[2025-05-15] MEDS: OXYTOCIN/RINGERS LACTATE 30 UNITS/500 ML BAG IV (06:07)
[2025-05-15] MEDS: DEXTROSE 5%-LACTATED RINGERS 1,000 ML 125 ML IV ×2 (06:08→13:48)
--- NOTE | 2025-05-15 08:52 | EXP.OB.APHP ---
OB - H&P: HPI Antepartum History of Present Illness Chief complaint: Elective induction of labor History of present illness: Ms Herlinda Jason is a 24 yo at 39w0d who presents to [facility] L&D for scheduled elective induction of labor. She has had good care. History of SAB x 3. She was on Lovenox during this . Last dose was the morning of 05/13/25. complicated by anxiety and depression. She is taking sertraline 25 mg PO daily. Baby is active. GBS negative. History of Present Criteria for establishing EDC:: LMP confirmed by 1st trimester US care: good care Ultrasounds: normal mid trimester US Obstetrical complications: none Medical complications: none Labs Blood type: AB (+) positive Rubella: nonimmune RPR/VDRL: nonreactive GBS status: negative HBsAG: negative PFSH PFS Disclaimer: The information contained in this section may have been updated after the patient was seen, as this information can be updated by other users. Medical History (Updated 05/15/25 @ 12:16 by Symone Michaels DO) 39 weeks gestation of Encounter for elective induction of labor Rubella non-immune status, antepartum Depression affecting Vaginal bleeding affecting early History of 3 spontaneous abortions Twin with loss and retention of one fetus in first trimester Vaginal bleeding in Marijuana use during Dichorionic diamniotic twin Spontaneous Incomplete Nausea and vomiting Triplet gestation Anxiety with depression Surgical History History of dilation and curettage Family History Other Coronary artery disease Diabetes FHx: mental illness Heart attack Thyroid disorder Social History Smoking Status: Never smoker second hand exposure: No alcohol intake: never substance use type: denies use current occupational status: employed Travel in the last 8 weeks?: None household members: family housing: house current occupation: [employer] caffeine: Yes Have you lived/traveled outside US in past 30 days?: No Contact w/someone who lives/traveled outside US past 30 days?: No Exposure to someone with infectious disease in past 14 days?: No Do you have a fever (greater than 100.4 F or 38 C)?: No Have you tested positive for COVID-19?: No Exposed to someone with COVID-19 in past 14 days?: No Do you have a sore throat?: No Do you have a cough?: No Do you have any weakness?: No Do you have any diarrhea?: No Are you experiencing any unusual bleeding?: No Do you have any muscle aches/pain?: No Do you have any abdominal pain?: No Are you experiencing loss of taste or smell?: No Other Medical History Have you received the Flu Vaccine for this season: No Have you received the Pneumonia Vaccine: No Review of Systems Review of Systems Review of systems:: pertinent systems reviewed and negative unless documented below Meds Home Medications and Allergies Home Medications ?Medication ?Instructions ?Recorded ?Confirmed ?Type vits no.126-ferrous fum 1 tab PO DAILY 05/13/24 05/14/25 History 28 mg iron-folic acid 800 mcg tablet (Classic ) promethazine 12.5 mg tablet 12.5 mg PO TID 10/07/24 05/14/25 History sertraline 25 mg tablet 25 mg PO DAILY #30 tabs 01/27/25 05/14/25 Rx famotidine 20 mg tablet 20 mg PO Q12H #30 tabs 02/03/25 05/14/25 Rx ferrous sulfate 325 mg (65 mg 325 mg PO DAILY #30 tabs 02/17/25 05/14/25 Rx iron) tablet ibuprofen 800 mg tablet 800 mg PO BID 05/12/25 05/14/25 History enoxaparin 40 mg/0.4 mL 40 mg SQ DAILY 05/15/25 05/15/25 History subcutaneous syringe New Prescriptions to Start Prescriptions: Allergies Allergy/AdvReac Type Severity Reaction Status Date / Time No Known Allergies Allergy Verified 05/12/25 11:01 OB - H&P: Exam Physical Exam Vital signs: Temp Pulse Resp BP Pulse Ox O2 Del Method 98.0 F 91 H 16 116/66 98 Room Air 05/15/25 05:00 05/15/25 05:00 05/15/25 05:00 05/15/25 05:00 05/15/25 05:00 05/15/25 05:00 Constitutional no acute distress and cooperative Routine HEENT Exam Head: Present normocephalic and atraumatic Eye: Absent conjunctivae pink ENT: Present mucous membranes moist Routine Neck Exam Present full ROM Routine Respiratory Exam Present CTA bilaterally and normal respiratory effort Routine Cardiovascular Exam Present RRR Routine Abdominal Exam Present soft (Gravid); Absent tenderness Routine Rectal Exam Patient deferred: visual exam Routine Exam External: Present normal urethra appearance; Absent erythema, swelling, tenderness, lesions or lacerations Routine Extremities Exam Present full ROM; Absent edema or calf tenderness Routine Neurological Exam Present alert, moving all extremities and normal speech Routine Psychiatric Exam Present normal affect and cooperative Detailed Labor and Delivery Exam Dilation (cm): 3 Effacement (%): 75 Cervix position: mid station: -2 Consistency: soft Membranes: artificially ruptured Amniotic fluid: clear Baseline heart rate: 120 monitor accelerations: Present monitor decelerations: None half-way variability: Moderate (11-25) Contraction frequency (min): 3 OB - Results Labs Labs: Short CBC 05/14/25 Range/Units 13:39 WBC 11.2 H (4.8-10.8) K/mm3 Hgb 13.1 (12.2-16.2) g/dL Hct 38.0 (37.0-47.0) % Plt Count 148 (142-424) K/mm3 Urine 05/14/25 Range/Units 13:30 Urine Color Yellow (Yellow) Urine Appearance Clear (Clear) Urine pH 7.0 (5.0-8.5) Ur Specific [place] 1.020 (1.005-1.030) Urine Protein Negative (Negative) Urine Glucose (UA) Negative (Negative) OB - A/P Antepartum (1) Encounter for elective induction of labor: Status: Acute (2) 39 weeks gestation of : Status: Acute (3) Twin with loss and retention of one fetus in first trimester: Status: Acute (4) History of 3 spontaneous abortions: Status: Acute (5) Depression affecting : Status: Acute (6) Rubella non-immune status, antepartum: Status: Acute Additional Plan Planning to breastfeed?: Yes Additional Information:: Admit to [facility] L&D for scheduled induction of labor She received Cytotec PO x 1 dose followed by Pitocin GBS negative Close monitoring Anticipate
[2025-05-15 10:43] LABS: RPR W/RFX Titers Nonreactive (Nonreactive)
[2025-05-15] MEDS: BUTORPHANOL TARTRATE 1 MG/ML VIAL IV (10:58)
[2025-05-15] MEDS: LACTATED RINGERS 1000ML 1,000 ML 250 ML IV (12:37)
--- NOTE | 2025-05-15 14:37 | P.PNANES_ITS ---
[facility] Disclaimer: The information contained in this section may have been updated after the patient was seen, as this information can be updated by other users. Medical History (Updated 05/15/25 @ 12:16 by Symone Michaels DO) 39 weeks gestation of Encounter for elective induction of labor Rubella non-immune status, antepartum Depression affecting Vaginal bleeding affecting early History of 3 spontaneous abortions Twin with loss and retention of one fetus in first trimester Vaginal bleeding in Marijuana use during Dichorionic diamniotic twin Spontaneous Incomplete Nausea and vomiting Triplet gestation Anxiety with depression Surgical History History of dilation and curettage Family History Other Coronary artery disease Diabetes FHx: mental illness Heart attack Thyroid disorder Social History Smoking Status: Never smoker second hand exposure: No alcohol intake: never substance use type: denies use current occupational status: employed Travel in the last 8 weeks?: None household members: family housing: house current occupation: [employer] caffeine: Yes Have you lived/traveled outside US in past 30 days?: No Contact w/someone who lives/traveled outside US past 30 days?: No Exposure to someone with infectious disease in past 14 days?: No Do you have a fever (greater than 100.4 F or 38 C)?: No Have you tested positive for COVID-19?: No Exposed to someone with COVID-19 in past 14 days?: No Do you have a sore throat?: No Do you have a cough?: No Do you have any weakness?: No Do you have any diarrhea?: No Are you experiencing any unusual bleeding?: No Do you have any muscle aches/pain?: No Do you have any abdominal pain?: No Are you experiencing loss of taste or smell?: No [facility] Anesthesia Checklist Patient Identification Patient Identification: Arm Band and Family Structural Data Admitted From: Inpatient Planned Operative Procedure/s: Labor epidural Consent for Planned Operative Procedure(s) Verified: Yes Verified Documents: Surgical Consent and History and Physical NPO Status Verified Time NPO: 00:00 Additional verifications Patient : Yes Anesthesia Reactions: No Hx Blood Transfusions: No Blood Transfusion Reaction: No Cephalosporin Allergy: No Previous Colonoscopy: No Airway Assessment Mallampati Score:: Class II C-Spine Mobility Assessed: Yes TMJ Mobility Assessed: Yes Dentition: Good Dentition Neurological Assessment Level of Consciousness: Awake, Alert, Appropriate and Follows Commands Hx Seizures: No Numbness or tingling in extremities: No Anesthesia Plan Anesthesia Risk discussed: Yes ASA Class: I Anesthesia Type: Epidural Preoperative Comments Pre-Operative Comments: 39 weeks. 4 Cm.
[2025-05-15] MEDS: OXYTOCIN/RINGERS LACTATE 30 UNITS/500 ML BAG 999 UNITS IV (16:52)
--- NOTE | 2025-05-15 17:16 | EXP.DN ---
Delivery Note Delivery Date:: 05/15/25 Delivery Time:: 16:46 Anesthesia Type: Epidural Was labor medically induced?: No Induction method: per misoprostol protocol Gestational age (weeks): 39 delivered prior to 39 weeks?: No Gender: Female at 1 minute: 8 at 5 minutes: 9 LAC or MLE?: MLE Delivery Procedure:: Mom complete with epidural. Pushed for approximately one hour. Midline episiotomy performed for maternal exhaustion and tight perineal band. Head delivered spontaneously over intact perineum in OA position. Nuchal cord x 2 reduced at perineum. Anterior shoulder delivered with gentle downward pressure. Posterior shoulder and remainder of body delivered spontaneously. Baby placed on maternal abdomen, mouth and nares bulb suctioned, warmed/dried and stimulated. Delayed cord clamping was performed for 60 seconds. Cord was clamped and cut by father of baby. Cord blood was obtained. Placenta delivered spontaneously and intact. Placenta will be sent to pathology for review. Midline episiotomy repaired with 3-0 Vicryl. Hemostasis noted. Mom and baby were skin to skin and doing well after delivery. Live female baby (baby's name is Concetta) APGARs 8 (1 min), 9 (5 min) EBL 200 mL Placental Delivery Description: Spontaneous
[2025-05-15] MEDS: BENZOCAINE-MENTHOL SPRAY 56GM CAN TP (21:09)
[2025-05-15] MEDS: WITCH HAZEL 40 PADS/BOX 1 EACH TP (21:10)
[2025-05-15] MEDS: IBUPROFEN 400 MG TABLET 800 MG PO (21:20)
[2025-05-15] MEDS: ACETAMINOPHEN 500MG TAB 1000 MG PO (21:20)
[2025-05-15 21:54] VITALS: BP 126/63; PULSE 99; RESP 16; TEMP 36.8; O2SAT 97
[2025-05-16 03:46] VITALS: BP 125/63; PULSE 85; RESP 16; TEMP 36.4; O2SAT 98
[2025-05-16 07:28] LABS: Hematocrit 33.6 % (37.0-47.0); Hemoglobin 11.3 g/dL (12.2-16.2); Immature Granulocytes % 1.9 %; Mean Corpuscular HGB Conc 33.6 g/dL (31.8-35.4); Mean Corpuscular Hemoglobin 30.2 pg (27.0-31.2); Mean Corpuscular Volume 89.8 fl (81-99); Nucleated Red Blood Cells % 0 %; Platelet Count 154 K/mm3 (142-424); Red Blood Count 3.74 M/mm3 (4.20-5.40); Red Cell Distribution Width-SD 46.5 fL; White Blood Count 12.2 K/mm3 (4.8-10.8)
[2025-05-16] MEDS: IBUPROFEN 400 MG TABLET 800 MG PO ×2 (07:55→19:57)
[2025-05-16] MEDS: ACETAMINOPHEN 500MG TAB 1000 MG PO ×2 (07:55→19:58)
[2025-05-16 08:00] VITALS: BP 126/83; PULSE 85; RESP 19; TEMP 36.9; O2SAT 100
[2025-05-16] MEDS: SENNA 8.6MG TABLET 8.6 MG PO (09:12)
--- NOTE | 2025-05-16 13:06 | EXP.ACUTE.PN ---
Subjective *Date: 05/16/25 *Time: 13:06 Interval history: PPD # 1 s/p Feeling well. Pain controlled. Breast feeding. Lochia is appropriate. Voiding without difficulty and passing flatus. Tolerating regular diet. Denies fever/chills, chest pain and shortness of breath. No headaches, vision changes, lightheadedness/dizziness. No lower extremity swelling. Ambulating well ad nory. Medical Exam Vital signs and Labs for Last 24 Hours: Vital Signs Temp Pulse Resp BP Pulse Ox O2 Del Method 05/16/25 08:00 98.4 F 85 19 126/83 100 Room Air 05/16/25 03:46 97.6 F 85 16 125/63 98 Room Air 05/15/25 21:54 98.2 F 99 H 16 126/63 97 Room Air Intake and Output 05/15/25 05/16/25 05/16/25 23:59 07:59 15:59 Intake Total 653.616 / 2678.216 Balance 653.616 / 2678.216 Intake: Intake, Total IV Amount 653.616 / 2678.216 Dextrose 5%-Lactated Ringers 1, 383.333 / 1383.333 000 ml @ 125 mls/hr IV .Q8H [facility] Rx#:[id number] Oxytocin/Ringers Lactate 30 20.533 / 45.133 units In 500 ml @ 2 mls/hr IV . Q25H ONE Rx#:[id number] Oxytocin/Ringers Lactate 30 249.75 / 249.75 units In 500 ml @ 40 mls/hr IV .[id number] [facility] Rx#:[id number] Laboratory Results - last 24 hr 05/16/25 07:00: WBC 12.2 H, RBC 3.74 L, Hgb 11.3 L, Hct 33.6 L, MCV 89.8, MCH 30.2, MCHC 33.6, RDW 14.3, Plt Count 154, MPV 11.2 H, Neut % (Auto) 72.3, Lymph % (Auto) 14.4, Starr % (Auto) 10.0 H, Eos % (Auto) 1.1, Baso % (Auto) 0.3, Neut # (Auto) 8.8 H, Lymph # (Auto) 1.8, Starr # (Auto) 1.2 H, Eos # (Auto) 0.1, Baso # (Auto) 0.0 I & O for Labs for Last 24 Hours: Intake & Output 05/13/25 05/14/25 05/15/25 05/16/25 23:59 23:59 23:59 23:59 Intake Total 2678.216 / 2678.216 Balance 2678.216 / 2678.216 Weight 205 lb Microbiology Reports for the Last 24 Hours: Microbiology 05/14/25 13:30 Urine,Clean Catch Urine Culture - Final NO GROWTH AFTER 48 HOURS Head: Present atraumatic and normocephalic ENT: Present normal exam Neck: Present normal inspection and full ROM Respiratory: Present CTA bilaterally and normal respiratory effort Cardiac: Present Reg Rate and Rhythm GI: Present soft; Absent distention or tenderness Comments:: Uterine fundus firm and below umbilicus Rectal (female): Present deferred (female): Present deferred Extremities: Present normal inspection and full ROM; Absent edema or calf tenderness Neuro: Present alert, awake and moves all extremities Assessment and Plan *Assessment and plan (1) Status post normal vaginal delivery: Status: Acute Category: Medical (2) Encounter for elective induction of labor: Status: Acute Category: Medical Code(s): Z34.90 - Encounter for supervision of normal , unspecified, unspecified trimester (3) 39 weeks gestation of : Status: Acute Category: Medical Code(s): Z3A.39 - 39 weeks gestation of (4) Depression affecting : Status: Acute Category: Medical Code(s): O99.340 - Other mental disorders complicating , unspecified trimester; F32.A - Depression, unspecified (5) Rubella non-immune status, antepartum: Status: Acute Category: Medical Code(s): O09.899 - Supervision of other high risk pregnancies, unspecified trimester; Z28.39 - Other underimmunization status Plan Continue routine care Encouraged increased ambulation Plan d/c home tomorrow, PPD # 2
[2025-05-16 16:12] VITALS: BP 114/77; PULSE 75; RESP 17; TEMP 36.6; O2SAT 98
[2025-05-16] MEDS: PRENATAL MULTIVITAMIN W/IRON 1 EACH PO (17:13)
[2025-05-16 20:00] VITALS: BP 129/67; PULSE 76; RESP 17; TEMP 36.7; O2SAT 99
[2025-05-17 05:29] VITALS: BP 108/57; PULSE 87; RESP 16; TEMP 36.5; O2SAT 99
[2025-05-17] MEDS: IBUPROFEN 400 MG TABLET 800 MG PO (06:36)
[2025-05-17] MEDS: ACETAMINOPHEN 500MG TAB 1000 MG PO (06:36)
[2025-05-17 08:48] VITALS: BP 128/73; PULSE 98; RESP 19; TEMP 36.9; O2SAT 96
[2025-05-17] MEDS: MEASLES,MUMPS,RUBELLA VACCINE VIAL 0.5 ML SUBCUT (10:09)
[2025-05-17] MEDS: BENZOCAINE-MENTHOL SPRAY 56GM CAN TP (10:12)
[2025-05-17] MEDS: WITCH HAZEL 40 PADS/BOX 1 EACH TP (10:12)
--- NOTE | 2025-05-17 11:36 | P.DS_ITS ---
General Admission date:: 05/14/25 Discharge date: 05/17/25 HPI HPI HPI: PPD # 1 s/p Feeling well. Pain controlled. Breast feeding. Lochia is light. Voiding without difficulty and passing flatus. Tolerating regular diet. Denies fever/chills, chest pain and shortness of breath. No headaches, vision changes, lightheadedness/dizziness. Admits to mild lower extremity swelling. No calf pain. Ambulating well ad nory. Hospital Course Hospital Course Hospital Course: Ms Herlinda Jason is a 24 yo at 39w0d who presents to [facility] L&D for scheduled elective induction of labor. She has had good care. History of SAB x 3. She was on Lovenox during this . Last dose was the morning of 05/13/25. complicated by anxiety and depression. She is taking sertraline 25 mg PO daily. Baby is active. GBS negative. She had a normal spontaneous vaginal delivery on 05/15/25 at 1646. She delivered a live female baby, Concetta, weighing 6 lb 13 oz. APGARs 8 (1 min), 9 (5 min). EBL 200 mL. She did well . Pain controlled. Breast feeding. Light lochia. Voiding without difficulty and passing flatus. Tolerating regular diet. Denies fever/chills, chest pain and shortness of breath. No headaches, dizziness/lightheadedness or vision changes. Vital signs stable, afebrile. Heart regular rate and rhythm. Lungs clear to auscultation. Abdomen soft, nontender. She had +1 bilateral lower extremity edema. No calf tendernss to palpation. Ambulating well ad nory. Normal hospital course. She was discharged to home on PPD # 2 with instructions to follow-up in the office in 2 weeks or sooner if needed. Exam Data for Last 24 hours Vital signs and Labs for Last 24 Hours: Temp Pulse Resp BP Pulse Ox O2 Del Method 98.4 F 98 H 19 128/73 96 Room Air 05/17/25 08:48 05/17/25 08:48 05/17/25 08:48 05/17/25 08:48 05/17/25 08:48 05/17/25 08:48 I & O for Last 24 hours: Intake & Output 0905/15/25 05/16/25 05/17/25 23:59 23:59 23:59 23:59 Intake Total 2678.216 / 2678.216 Balance 2678.216 / 2678.216 Weight 205 lb Constitutional Constitutional: no acute distress and cooperative *Routine HEENT Exam Head: Present normocephalic and atraumatic Eye: Absent conjunctivae pink ENT: Present mucous membranes moist *Routine Neck Exam Neck: Present full ROM *Routine Respiratory Exam Respiratory: Present CTA bilaterally and normal respiratory effort *Routine Cardiovascular Exam Cardiovascular: Present RRR *Routine Abdominal Exam Abdominal: Present soft and normoactive bowel sounds; Absent tenderness *Routine Rectal Exam Patient deferred: visual exam *Routine Exam Patient deferred: external exam *Routine Extremities Exam Extremities: Present edema (+1 bilateral lower extremity edema) and full ROM; Absent calf tenderness *Routine Neurological Exam Neurological: Present alert, moving all extremities and normal speech Routine Psychiatric Exam Psychiatric: Present normal affect and cooperative DS: Diagnosis Discharge Diagnosis (1) Status post normal vaginal delivery: Status: Acute (2) Encounter for elective induction of labor: Status: Acute Code(s): Z34.90 - Encounter for supervision of normal , unspecified, unspecified trimester (3) 39 weeks gestation of : Status: Acute Code(s): Z3A.39 - 39 weeks gestation of (4) Depression affecting : Status: Acute Code(s): O99.340 - Other mental disorders complicating , unspecified trimester; F32.A - Depression, unspecified (5) Rubella non-immune status, antepartum: Status: Acute Code(s): O09.899 - Supervision of other high risk pregnancies, unspecified trimester; Z28.39 - Other underimmunization status Meds Home Medications and Allergies Home Medications ?Medication ?Instructions ?Recorded ?Confirmed ?Type vits no.126-ferrous fum 1 tab PO DAILY 05/14/25 History 28 mg iron-folic acid 800 mcg tablet (Classic ) promethazine 12.5 mg tablet 12.5 mg PO TID 10/07/24 History sertraline 25 mg tablet 25 mg PO DAILY #30 tabs 11/1805/14/25 Rx famotidine 20 mg tablet 20 mg PO Q12H #30 tabs 02/0305/14/25 Rx ferrous sulfate 325 mg (65 mg 325 mg PO DAILY #30 tabs 02/17/25 05/14/25 Rx iron) tablet ibuprofen 800 mg tablet 800 mg PO Q8H PRN pain #20 t abs 05/16/25 Rx New Prescriptions to Start Prescriptions: ibuprofen Symone Michaels Allergies Allergy/AdvReac Type Severity Reaction Status Date / Time No Known Allergies Allergy Verified 05/12/25 11:01 Discharge Plan Disposition Patient Disposition: Home, Self-Care Condition: Good Discharge Order Discharge Orders: Discharge Order (Routine); Ordered 05/17/25 Ordered By: Symone Michaels Follow up Plan Follow up with: Symone Michaels DO [Staff Physician, CERTIFIED SCRUM MASTER] - 2 weeks Prescriptions/Medication Reconciliation: New ibuprofen 800 mg tablet 800 mg PO Q8H PRN (Reason: pain) Qty: 20 0RF Continued promethazine 12.5 mg tablet 12.5 mg PO TID famotidine 20 mg tablet 20 mg PO Q12H Qty: 30 3RF Classic 28 mg iron- 800 mcg tablet 1 tab PO DAILY sertraline 25 mg tablet 25 mg PO DAILY Qty: 30 5RF ferrous sulfate 325 mg (65 mg iron) tablet 325 mg PO DAILY Qty: 30 3RF Discontinued ibuprofen 800 mg tablet 800 mg PO BID enoxaparin 40 mg/0.4 mL syringe 40 mg SQ DAILY Rx Instructions: INJECT 1 SYRINGE SUBCUTANEOUSLY ONCE DAILY Problem Reconciliation Problems Reviewed?: Yes Patient Discharge Instructions ACTIVITY: Limited activity DIET: continue same diet and regular diet Additional Instructions: Discharge: 1. Take 800 mg Ibuprofen every 8 hours as needed for pain. You can also take 500-1000 mg of Tylenol in between doses, every 6-8 hours. 2. Nothing in the vagina for 6 weeks - no intercourse, douching or tampons. No tub baths/hot tubs or swimming pools 3. Reasons to return to L&D or call On-Call doctor - fever (greater than 100.4) - heavy vaginal bleeding (soaking through 1 pad in less than 2 hours) - vaginal discharge (malodorous and/or purulent) - severe headaches not resolved by medication or rest 4. depression/blues - Normal to feel anxious/overwhelmed for first 2 weeks - Talk to your doctor if: severe anxiety, trouble bonding with baby, withdrawing from other family members, thoughts of harming yourself or others Symone Michaels DO [facility] [phone] Patient Instructions: Depression, Hemorrhage, DI for La bor and Delivery, Vaginal , DI for Pre-eclampsia, H Post Discharge Instructions Print Language: Malawian Providers Primary Care Provider: Provider,Referral Admit Provider: Symone Michaels Attending Provider: Symone Michaels
== END 2025-05-17 13:04 | disposition home or self-care (01) | DRG 807 ==
PROVIDERS: Admitting Provider Obstetrics & Gynecology; Visit Provider Obstetrics & Gynecology
DX: O31.23X0 Continuing pregnancy after intrauterine death of one fetus or more, third trimester, not applicable or unspecified (principal); Z37.3 Twins, one liveborn and one stillborn; O99.344 Other mental disorders complicating childbirth; F41.9 Anxiety disorder, unspecified; F32.A Depression, unspecified; Z3A.39 39 weeks gestation of pregnancy; O69.81X0 Labor and delivery complicated by cord around neck, without compression, not applicable or unspecified; O75.81 Maternal exhaustion complicating labor and delivery; O75.89 Other specified complications of labor and delivery; Z87.59 Personal history of other complications of pregnancy, childbirth and the puerperium; Z28.39 Other underimmunization status; Z79.01 Long term (current) use of anticoagulants; Z23 Encounter for immunization
CPT/HCPCS: 36415; 59025; 81001; 85025; 86592; 86850; 87086; 90707; C1758; J0595; J7120; J7121

== ENCOUNTER 2025-05-19 11:41 | Outpatient (CLI) | payer BC, SELFPAY ==
--- OUTSIDE RECORDS SUMMARY | 2024-01-09 07:45 | XMS_ITS ---
Author Organization [facility] Address [address] [facility] [address] [place] [phone] Care Team Providers Care Authorization Manager Name Role Phone Rob Meade Primary Care Provider Felipe Zach Unavailable [phone] Allergies No Known Allergies Results Component Value [...] Interpretation:Normal Performing Lab: Notes/Report: Test performed by [facility] [address] [place], [place] [address] [place] , [address], [place] [address] Roberto Carlos Scott MD, Installation Drafter CLIA: [id number] Amylase 70 28-100 U/L P-Comprehensive Metabolic Pa jose de jesus (CMP) Reviewed date:01/10/2024 09:42:22 AM Interpretation:a/g 3.1 Performing Lab: Notes/Report: Test performed by [facility] [address] [place], [place] [address] [place] , [place] [address] Roberto Carlos Scott MD, Installation Drafter CLIA: [id number] Sodium 141 135-145 mEq/L Potassium 3.5 3.5-5.3 [...] Interpretation:64 Performing Lab: Notes/Report: Test performed by [facility] [employer] [address] , [place] [address] Roberto Carlos Scott MD, Installation Drafter CLIA: [id number] Lipase 64.0 13.0-60.0 u/L P-Magnesium Reviewed date:01/10/2024 09:42:23 AM Interpretation:Normal Performing Lab: Notes/Report: Test performed by [facility] [address] [place] [address] , [place] [address] Roberto Carlos Scott MD, Installation Drafter CLIA: [id number] Magnesium 2.3 1.6-2.4 mg/dL P-PT/PTT Panel Reviewed date:01/10/2024 09:42:23 AM Interpretation:Normal Performing Lab: Notes/Report: Test performed by [employer] [address] , [place] [address] Roberto Carlos Scott MD, Installation Drafter CLIA: [id number] PT 11.4 9.5-12.2 sec INR 1.1 0.9-1.2 [...] 01/09/2024 Encounters Encounter Location Date Provider Diagnosis [facility] [address] [facility] [address] [place] [address] GABRIEL [id number] 01/09/2024 Zach Lawrence Dizziness R42 ; Easy bruising R23.3 and [...] * Milan BARBOUROB:[birth year] (24 yo F)Acc No.[id number]:01/09/2024 Progress Notes Patient: Bubba CHACONtlin Provider: Loren Wang M.D. :2000 A ge:23 Y S ex:Female Date:01/09/2024 Address:[facility] [address] , [id number] Pcp:Rbo Meade Subjective: * Chief Complaints: * 1 [...] * Images: Billing Information: * Visit Code: 42555 Office Visit, Est Pt., Level 4. * Procedure Codes: 04949 CBC WITH AUTO DIFF. * Electronic signature of Olga Wang MD on 05/19/2025 at 11:43 AM EDT Sign off status: Pending * Provider: Loren Wang M.D. Date: 0 01/09/2024 Generated for Elias smith/Andre/Princessitting on: 0 05/19/2025 11:43 AM EDT History and Physical Notes * HPI [...]
--- OUTSIDE RECORDS SUMMARY | 2024-03-20 05:30 | XMS_ITS ---
Author Organization Rachel Address 1210 [facility] [address] [phone] Care Team Providers Care Scroll Saw Operator Name Role Phone Rob Meade Primary Care Provider Tanya Subramanian [phone] Allergies No Known Allergies REASON FOR VISIT Telehealth- Positive Covid Vital Signs Heart Rate 00 /min 03/20/2024 Height 68 in 03/20/2024 Weight 108 lbs 03/20/2024 BMI 16.42 kg/m2 03/20/2024 Encounters Encounter Location Date Provider Diagnosis Rachel 12[facility] [address] [id number] 03/20/2024 Tanya Subramanian COVID-19 U07.1 Assessments Encounter [...] * Tevin BARBOURinDOB:[birth year] (24 yo F)Acc No.[id number]:03/20/2024 Progress Notes Patient: Herlinda CHACON Provider: EDMUNDO Gan :2000 A ge:23 Y S ex:Female Date:03/20/2024 Address:[address] , [id number] Pcp:Rob Meade Subjective: * Chief Complaints: * 1 . Telehealth- Positive Covid. * HPI: E NT/respiratory: 23 year old female presents with c/o cough p atient complains of greenish yellow sputum production cough for 1 4 days. Associated with body aches and n ausea. Positive home Covid test yesterday as well as at [facility] last night, is 6 weeks . C [...] * Hospitalization/Major Diagno stic Procedure: olesya morse [facility] 12/2016. * Family History: F ather: alive. [...] equipment failure, poor image resolution and information support project manager issues. You also understand that I [...] from an office setting via secure, live, qfif-xk-crnd video conference with the patient who was [...] equipment failure, poor image resolution and information support project manager issues. You also understand that I [...] from an office setting via secure, live, oyyx-wa-tywn video conference with the patient who was located in their home. Prior to the interview, the risks and benefits of telemedicine were discussed with the patient and verbal consent was obtained..? * Follow Up: p rn * Images: Billing Information: * Visit Code: * Procedure Codes: 01931 OFFICE VIST, EST PT. LEVEL 3, TELEHEALTH. Modifiers: 95 * Electronic signature of EDMUNDO Rashid on 05/19/2025 at 11:44 AM EDT Sign off status: Pending * Provider: EDMUNDO Gan Date: 03/20/2024 Generated for Elias smith/Andre/Elda on: 05/19/2025 11:44 AM EDT History and Physical Notes * HPI (History of Present Illness) Category Sub-Category Detail Notes Category Not es ENT/respiratory cough patient complain s of greenish yellow sputum production cough for 14 days. Associated with body aches and nausea. 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
--- OUTSIDE RECORDS SUMMARY | 2024-04-10 11:15 | XMS_ITS ---
Author Organization [facility] Address [address] [id number] Care Team Providers Care Plugging Machine Operator Name Role Phone Rob Meade Primary Care Provider Marilynn Tanya Unavailable [phone] Allergies No Known Allergies Results Component Value [...] 0.43 Performing Lab: Notes/Report: Test performed by [employer], [employer] [facility] , [address], [place] [address] Roberto Carlos Scott MD, Lens Blank Gauger CLIA: [id number] Sodium 133 135-145 mmol/L Potassium 4.0 3.5-5.3 [...] 04/10/2024 Encounters Encounter Location Date Provider Diagnosis [facility] [address] [place], [place] [id number] 04/10/2024 Tanya Subramanian Intractable nausea a nd [...] * Tevin BARBOURinDOB:[birth year] (24 yo F)Acc No.[id number]:04/10/2024 Progress Notes Patient: Olesya DIAZHENRY Herlinda Provider: EDMUNDO Gan :2000 A ge:23 Y S ex:Female Date:04/10/2024 Address:[facility] [address], [id number] Pcp:Rob Meade Subjective: * Chief Complaints: * [...] Procedure Codes: 3 6416 CAPILLARY BLOOD DRAW, 35099 CBC WITH AUTO DIFF * Follow Up: v ia phone to report test results * Images: Billing Information: * Visit Code: 26558 Office Visit, Est Pt., Level 3. * Procedure Codes: 38318 CAPILLARY BLOOD DRAW. 75484 CBC WITH AUTO DIFF. * Electronic signature of EDMUNDO Rashid on 05/19/2025 at 11:44 AM EDT Sign off status: Pending * Provider: EDMUNDO Gan Date: 0 04/10/2024 Generated for Elias smith/Andre/eTransmitting on: 0 05/19/2025 11:44 AM EDT History and Physical [...]
--- OUTSIDE RECORDS SUMMARY | 2024-05-08 12:30 | XMS_ITS ---
Author Organization Dian Address [address] [phone] Care Team Providers Care Practice Representative Name Role Phone Rob Meade Primary Care Provider Tanya Subramanian [phone] Allergies No Known Allergies Results Component Value Reference Range Notes TEN-stool panel Reviewed date:05/14/2024 09:49:30 AM Interpretation:Abnormal Performing Lab: Notes/Report: Abnormal REASON FOR VISIT stool sample Vital Signs Height 68 in 05/08/2024 Weight 000 lbs 05/08/2024 Encounters Encounter Location Date Provider Diagnosis Rachel [address] [phone] 05/08/2024 Tanya Subramanian Diarrhea R19.7 Assessments Encounter Date Diagnosis (ICD Code) Assessment Notes Treatment Notes Treatment Clinical Notes Section Notes 05/08/2024 Diarrhea (ICD-10 - R19.7) Plan Of Treatment No Information Progress Notes * Tevin BARBOURinDOB:[birth year] (24 yo F)Acc No.[id number]:05/08/2024 Patient: Spencer RANGELHerlinda Provider: EDMUNDO Gan :2000 A ge:23 Y S ex:Female Date:05/08/2024 Address:[address] [place] [phone] Pcp:Rob Meade Subjective: * Chief Complaints: * 1 . Stool sample. * Medical History: M edical History Verified. * Allergies: N .K.D.A. Objective: * Vitals: W t:000, Temp:000, BP:000, Nurse:CARLOS, Ht: 68. Assessment: * Assessment: 1. D iarrhea - R19.7 Plan: * Treatment: * Images: Billing Information: * Visit Code: * Procedure Codes: * Electronic signature of EDMUNDO Rashid on 05/19/2025 at 11:44 AM EDT Sign off status: Pending * Provider: EDMUNDO Gan Date: 0 05/08/2024 Generated for Elias smith/Andre/Princessitting on: 0 05/19/2025 11:44 AM EDT
--- OUTSIDE RECORDS SUMMARY | 2024-05-28 11:40 | XMS_ITS ---
Author Organization [facility] Address [address] [place] [id number] Care Team Providers Care Lead Athlete Name Role Phone Rob Meade Primary Care Provider Tanya Subramanian [phone] REASON FOR VISIT stool sample Encounters Encounter Location Date Provider Diagnosis [facility] [address] [place] [address] [place] [id number] 05/28/2024 Tanya Subramanian Plan Of Treatment No Information Progress Notes * Tevin BARBOURinDOB:[birth year] (24 yo F)Acc No.[id number]:05/28/2024 Patient: Herlinda CHACON Provider: EDMUNDO Gan :2000 A ge:23 Y S ex:Female Date:05/28/2024 Address:[address] [place], [place] [id number] Pcp:Rob Meade Subjective: * Chief Complaints: * 1 . Stool sample. * Medical History: Objective: * Vitals: Assessment: Plan: * Treatment: * Images: Billing Information: * Visit Code: * Procedure Codes: * Electronic signature of EDMUNDO Rashid on 05/19/2025 at 11:44 AM EDT Sign off status: Pending * Provider: EDMUNDO Gan Date: 1 Generated for Elias smith/Andre/Princessitting on: 0 05/19/2025 11:44 AM EDT
--- OUTSIDE RECORDS SUMMARY | 2025-05-19 11:43 | XMS_ITS | Clinical Summary ---
Author Organization [facility] Address [address] [place] [address] Care Team Providers Care Dedicated Driver Name Role Phone Zach Wang MD Primary Care Provider + [phone] Allergies No known active allergies Medications Vit-Fe [...] Then I would recommend transferring patient to [facility] at either [facility] or here. I can help [...] HEPATITIS C SCREENING 05/10/2022 PAP SMEAR 2022 INFLUENZA VACCINE 03/27/2025 11/11/2016 Pneumococcal Vaccine 0-49 Aged Out No longer eligible based on patient's age to complete this topic Insurance [facility] PPO Care Teams Dedicated Driver Relationship Specialty Start Date End Date Zach Wang MD [address] [place] [address] [facility] [address] [place] [address] PCP - General Family Medicine 05/19/24
--- OUTSIDE RECORDS SUMMARY | 2025-05-19 11:44 | XMS_ITS | Patient Health Record ---
Author Organization [facility] Address [address] [facility] [address] [id number] Care Team Providers Care Media Manager Name Role Phone Rob Meade Primary Care Provider [phone] Tanya Subramanian Unavailable [phone] Allergies No Known Allergies Results Component Value [...] Status Risk Notes Problem Gastroesophageal reflux disease (301369085) GERD (gastroesophag eal reflux disease) (K21.9) Active confirmed Problem Mixed anxiety and depressive disorder (333882177) Depression with anxiety (F41.8) Active confirmed Problem Migraine without aura (02419560) Migraine without aura and with status migrainosus, not intractable (G43.001) Active confirmed Encounters Encounter Location Date Provider Diagnosis [facility] [address] [place] [id number] 05/28/2024 Tanya Subramanian [facility] [address] [place] [id number] 06/04/2024 Tanya Subramanian Plan Of Treatment No Information Insurance Providers Payer Name Payer Address Payer Phone Subscriber Number Group Number Insured Name Patient Relationship to Insured Coverage Start Date Coverage End Date [facility] [address] [place] [address] [id number] Radha Barbour Child - Insured has Financial Responsibility Medical (General) History Surgical History Surgery Date(Month/Year) T&A 2005 Bilateral lazy eye 2006 [facility] 01/2022 Hospitalization History Reason Date(Month/Year) michelle moeller 12/2016
--- OUTSIDE RECORDS SUMMARY | 2025-05-19 11:44 | XMS_ITS | Encounter Summary ---
Author Organization [facility] Address [address] [place] [address] Care Team Providers Care Septic Tank Servicer Name Role Phone Ronald Issa MD Primary Care Provider [phone] Symone Michaels DO Unavailable Encounter Details Date Type Department Care Team ([facility] st Contact Info) Description 05/15/2024 Orders Only External Location [address] [place] [id number] Provider, External Social History Tobacco Use Types [...] on filedocumented in this encounter Care Teams Septic Tank Servicer Relationship Specialty Start Date End Date Ronald Issa MD [address] [place] [address] PCP - General 01/07/21 Symone Michaels DO [address] [place] [address] Referring Physician Obstetrics and Gynecology 05/29/24 documented as of this encounter
--- OUTSIDE RECORDS SUMMARY | 2025-05-19 11:44 | XMS_ITS | Clinical Summary ---
Author Organization [facility] Address [address] [place] [address] Care Team Providers Care Production Planner Name Role Phone Ronald Issa MD Primary Care Provider [phone] Symone Michaels DO Unavailable [phone] Allergies No known active allergies Medications Vit-Fe [...] 19+ 3-dose series) 2020 [facility]-Pap Smear 2022 [facility]-DVKOS-58 Vaccine (1 - season) 2025 [facility]-Influenza Vaccine [...] complete this topic Insurance ANTH Care Teams Production Planner Relationship Specialty Start Date End Date Ronald Issa MD [address] [place] [address] PCP - General 01/07/21 Symone Michaels DO [address] [place] [address] Referring Physician Obstetrics and Gynecology 05/29/24
--- NOTE | 2025-05-19 11:50 | PC.NURSE ---
Patient was sent over for a consult from Dr. Estes's office. Dr. Estes reports weight loss/jaundice/tongue tie. Infant sleepy and jaundiced today during exam. Tongue tie noted. Mother is mainly pumping and feeding infant pumped breast milk. Reports pumping 3 ounces every 3 hours. She is using slow flow nipple and Dr. Grants bottles. nursed on and off during exam with nipple shield. Infant very sleepy during nursing. Spoke with Dr. Estes who sent a referral to speech for tongue tie eval. is to get bili level drawn after this. Mother given tongue tie handouts and getting enough to eat handouts. Mother encouraged to keep pumping and give milk via bottle after nursing.
--- NOTE | 2025-05-19 12:45 | PC.NURSE ---
Speech Language here for eval on tongue ties.
== END 2025-05-19 13:04 | disposition home or self-care (01) ==
LOC: OBOUT 11:42 → OB 11:44
PROVIDERS: Visit Provider Obstetrics & Gynecology
DX: Z39.1 Encounter for care and examination of lactating mother (principal)
CPT/HCPCS: 99211